=== PATIENT | male | born 1960 | race Caucasian/White ===

== ENCOUNTER 2019-01-10 21:08 | Inpatient (IN) | payer OTHER ==
[2019-01-10 21:51] LABS: #Eosinphils 0.1 thou/uL (0.0-0.7); #Lymphocytes 1.7 thou/uL (1.20-3.40); #Neutrophils 7.2 thou/uL (1.40-6.50); %Basophils 0.5 % (0.0-1.0); %Eosinophils 0.9 % (0.0-10.0); %Lymphocytes 16.9 % (21.0-51.0); %Monocytes 9.7 % (0.0-10.0); Hemoglobin 10.3 g/dL (14.0-18.0); Mean Corpuscular HGB CONC 33.3 g/dL (32.0-36.0); Mean Corpuscular Hemoglobin 29.9 pg (27.0-31.0); Mean Corpuscular Volume 89.7 fL (78.0-98.0); Mean Platelet Volume 7.6 fL (7.4-10.4); Platelet Count 374 thou/uL (130-400); RBC Distribution Width 12.1 % (11.5-14.5); Red Blood Cell (RBC) Count 3.46 mill/uL (4.70-6.10)
--- NOTE | 2019-01-10 22:01 | CT ---
CT HEAD WITHOUT CONTRAST 01/10/19 Multiple axial tomograms obtained through the head without IV enhancement. INDICATIONS: Mental status change. Ventricles have normal size and position. There is severe chronic ischemic white matter changes which are very prominent for patient's age. Evidence of numerous old lacunar infarcts in the deep white ma tter and basal ganglia regions bilaterally. There is no hemorrhage or mass. No evidence of acute katya ical infarct. Sinuses are clear. IMPRESSION: Severe chronic ischemic white matter changes with evidence of numerous old lacunar infarcts. Acute la cunar infarct in the deep white matter cannot be excluded given the degree of lucency present within the periventricular white matter. If there is concern of new lacunar infarct, further evaluation with MRI would be necessary for evaluation. POS: [facility]
[2019-01-10 22:07] LABS: ALT (SGPT) 11 U/L (8-55); AST (SGOT) 15 U/L (5-34); Albumin 2.6 g/dL (3.5-5.0); Alkaline Phosphatase 84 U/L (40-150); Anion Gap 13 mmol/L (10-20); BUN (Urea Nitrogen) 32 mg/dL (8.4-25.7); Bilirubin, Total 0.2 mg/dL (0.2-1.2); Calc. Creatinine Clearance 0 mL/min (70-130); Calcium 7.7 mg/dL (7.8-10.44); Carbon Dioxide 23 mmol/L (22-29); Chloride 97 mmol/L (98-107); Estimated GFR-MDRD 24; Globulin 2.6 g/dL (2.4-3.5); Glucose 158 mg/dL (70-105); Potassium 3.4 mmol/L (3.5-5.1); Protein, Total 5.2 g/dL (6.0-8.3); Sodium 130 mmol/L (136-145)
--- NOTE | 2019-01-10 22:28 | RAD ---
PORTABLE CHEST: 01/10/19 HISTORY: Chest pain and difficulty breathing. There is patchy infiltrate in the left lower lung concerning for pneumonia. Heart size upper normal. Lungs otherwise appear clear. IMPRESSION: Patchy left lower lung infiltrate. Close follow-up recommended to ensure clearing as other lung pratik s cannot be excluded. POS: [facility]
[2019-01-10 22:30] LABS: CKMB 2.8 ng/mL (0-6.6)
[2019-01-10 22:50] LABS: Bilirubin Negative (Negative); Blood, Urine Trace (Negative); Clarity CLEAR (Clear); Glucose, Urine (Dipstick) 250 mg/dL (Negative); Leukocyte Negative (Negative); Nitrite Negative (Negative); Protein, Urine (Dipstick) 300 mg/dL (Neg-Trace); Specific Gravity, Urine 1.011 (1.002-1.036); Urobilinogen 0.2 mg/dL (0.2-1.0); pH, Urine 6.5 (5.0-9.0)
[2019-01-10 22:55] LABS: Bacteria/HPF None Seen HPF (None Seen); Hyaline Casts/LPF 0-3 HYALINE CAST LPF (0-3 Hyaline); Pathc Cast-AUWi Flag 0.54 (0-2.49); RBC/HPF 0-3 HPF (0-3); Squamous Epithelial 0-3 HPF (0-3); WBC/HPF 0-3 HPF (0-3)
[2019-01-10 23:04] LABS: Renal Epithelial 0-3 HPF (0-3)
[2019-01-11] MEDS ORDERED: Aspirin Chewable 81 MG TAB ONE (00:06)
[2019-01-11 00:48] LABS: Troponin I 0.039 ng/mL (< 0.028)
[2019-01-11 01:16] VITALS: BMI 31.8
[2019-01-11] MEDS ORDERED: Dextrose 50% Abboject 50 ML SYRINGE SLOW IVP PRN (01:31)
[2019-01-11] MEDS ORDERED: HumaLOG 300 UNITS/3 ML VIAL SC PRN (01:31)
[2019-01-11] MEDS ORDERED: Dextrose 5% in Water 1,000 ML IV PRN (01:31)
[2019-01-11] MEDS ORDERED: Acetaminophen 500 MG TAB PO PRN (01:31)
[2019-01-11] MEDS ORDERED: hydrALAZINE 20 MG/ML VIAL SLOW IVP PRN (01:31)
[2019-01-11] MEDS ORDERED: Labetalol HCl 100 MG/20 ML VIAL SLOW IVP PRN (01:31)
[2019-01-11] MEDS ORDERED: Benzonatate 100 MG CAP PO PRN (01:31)
[2019-01-11] MEDS ORDERED: Ondansetron PF 4 MG/2 ML Vial IVP PRN (01:31)
[2019-01-11] MEDS ORDERED: Ondansetron ODT 4 MG TAB PO PRN (01:31)
[2019-01-11] MEDS ORDERED: Potassium Chloride 20 MEQ TAB PO SCH ×2 (01:45→12:00)
--- NOTE | 2019-01-11 02:08 | HP ---
PRIMARY CARE PROVIDER: Jerel Hassan. CHIEF COMPLAINT: Altered mental status. HISTORY OF PRESENT ILLNESS: This is a 58-year-old male who presents to [facility] Emergency Department in transfer from [facility] in [place], [place] where the patient is currently incarcerated. According to [facility] staff, the patient was noted with confusion, and alert and oriented to person only x1 at the [facility]. The patient denied any recent trauma injury or prior similar events. The patient denied any new medication exposure or documented fever. The patient does states he felt fever and has had some mild cough over the last 2 to 3 days. The history is obtained after reviewing the electronic medical record as well as discussions with the patient and [facility]pc guards at the bedside. The patient is unable to provide a comprehensive history due to altered mentation. In the emergency room, the patient underwent general evaluation including CT of the brain showing severe chronic ischemic white matter changes with evidence of multiple lacunar infarctions. Portable chest x-ray also revealed a questionable left lower lobe infiltrate concerning for infectious process. The patient was also noted with multiple metabolic derangements on screening laboratories including acute kidney injury. The patient received aspirin 324 mg in the emergency room and was referred to the Hospitalist Service for further evaluation. PAST MEDICAL HISTORY: 1. Coronary artery disease. 2. Hypertension. 3. Question of heart failure. 4. Diabetes mellitus type 2. 5. Hyperlipidemia. 6. History of asthma. 7. Questionable history of dementia. 8. Chronic kidney disease. PAST SURGICAL HISTORY: Reviewed and negative. CURRENT MEDICATIONS: 1. Carvedilol 25 mg p.o. b.i.d. 2. Lasix 40 mg p.o. b.i.d. 3. Glipizide 5 mg p.o. daily. 4. Lisinopril 20 mg p.o. daily. 5. Loperamide 2 mg p.o. t.i.d. p.r.n. 6. Terazosin 2 mg p.o. daily. 7. Plavix 75 mg p.o. daily. 8. Novolin N 12 units subcutaneously q.a.m. 9. Novolin R sliding scale. 10. Amlodipine 10 mg p.o. daily. 11. Aspirin 81 mg p.o. daily. 12. Lipitor 40 mg p.o. at bedtime. ALLERGIES: NO KNOWN DRUG ALLERGIES. FAMILY HISTORY: No inheritable diseases per patient's report. SOCIAL HISTORY: The patient currently incarcerated at the [facility] in [place], [place]. No current alcohol, tobacco, or illicit drug use. Remote history of smokeless tobacco use. REVIEW OF SYSTEMS: Unobtainable due to patient's encephalopathy and altered mental status. PHYSICAL EXAMINATION: VITAL SIGNS: On admission; blood pressure 120/57, pulse 64, respiratory rate 18, temperature 99.2 degrees Fahrenheit, O2 saturation 98% on room air. GENERAL APPEARANCE: This is a 58-year-old male, alert and oriented x2 to person and place, in no acute distress. HEENT: Pupils are equal, round, and reactive to light and accommodation. Extraocular muscles are intact. No scleral icterus. No conjunctival injection. Nares patent. OP is clear. Oral mucosa dry appearing. NECK: Supple. No cervical adenopathy. No thyromegaly. No carotid bruits. No JVD appreciated. Cervical spine with full active and passive range of motion. No meningeal signs noted. CHEST: Diminished breath sounds in the bases bilaterally. CARDIOVASCULAR: S1 and S2 without noted murmur, rub, or gallop. ABDOMEN: Rounded, soft, nontender, and nondistended. Bowel sounds are positive in all 4 quadrants. There is no hepatosplenomegaly. No abdominal bruits. No rebound or guarding appreciated. EXTREMITIES: Warm and dry with fair turgor. Pitting edema to the proximal shins bilaterally. Pulses are palpable distally at the dorsalis pedis, posterior tibial, and popliteal arteries bilaterally. Capillary refill less than 2 seconds. Ankle and wrist restraints in place. NEUROLOGIC: Cranial nerves II through XII are grossly intact. The patient is not observed ambulatory during this exam. Alert and oriented to person and place. PERTINENT LAB AND X-RAY FINDINGS: Sodium 130, potassium 3.4, chloride 97, CO2 of 23, BUN 32, creatinine 2.79, estimated GFR 24, glucose 158, calcium 7.7. LFTs within normal limits. Troponin I 0.034. Albumin 2.6. CBC showed a white blood cell count of 10.0, hemoglobin 10, hematocrit 31, platelet count 374 with 72% neutrophils. Urinalysis dated 01/10/2019, showed a specific gravity of 1.011, positive protein and glucose. CT of the brain without contrast dated 01/10/2019, showed severe chronic ischemic white matter changes with old lacunar infarcts and multitude of distributions. Portable chest x-ray dated 01/10/2019, showed left lower lobe infiltrate. EKG dated 01/10/2019, by my interpretation shows a sinus mechanism with heart rates in the 60s, normal R-wave progression noted in the precordial leads, normal axis, no acute ST-T wave changes appreciated. ASSESSMENT AND PLAN: 1. Acute metabolic encephalopathy, exact etiology unclear. Questionable transient ischemic attack versus infectious versus electrolyte abnormalities. We will continue supportive management as outlined below. The patient will be ruled out for stroke with MRI imaging of the brain in the a.m. Check TSH, magnesium, and ammonia level in the a.m. Avoid sedating agents and psychotropics. 2. Left lower lobe bacterial pneumonia, suspected given chest imaging findings. We will continue empiric antibiotic coverage with Levaquin 500 mg x1 dose in addition to cefepime 1 g IV q.12 hours. Continue to provide general pulmonary supportive management. Oxygen as needed to maintain O2 saturations greater than or equal to 90%. 3. Acute kidney injury. Baseline estimated GFR unknown. We will continue low volume intravenous normal saline at 50 mL/h. Avoid nephrotoxic agents and limit contrast exposure. Repeat creatinine in the a.m. 4. Hyponatremia. Suspect multifactorial given the patient's presentation. Continue low volume intravenous normal saline and monitor serial sodium values. 5. Hypokalemia, mild currently. Potassium chloride 40 mEq p.o. x1 dose and repeat potassium level in the a.m. 6. Questionable history of dementia after review of medical records. CT imaging of the brain showing severe chronic ischemic white matter changes, questionable multi-infarct dementia versus vascular dementia. Continue supportive management and monitor mental status. 7. Diabetes mellitus type 2. Insulin sliding scale for reflexive coverage. ADA diet when tolerating p.o. intake. Confirm outpatient insulin regimen. 8. Prophylaxis. Sequential compression devices while in bed. Pepcid 20 mg p.o. b.i.d. PT evaluation for functional assessment. CODE STATUS: Full. Surrogate medical decision maker is the fpc system. Job ID: [id number]
[2019-01-11] MEDS: Cefepime 1 GM in Sodium Chloride 0.9% 100 ML IVPB SCH ×2 (02:17→14:46)
[2019-01-11] MEDS: Sodium Chloride 0.9% 1,000 ML IV SCH ×2 (02:17→20:18)
[2019-01-11 04:47] LABS: Band 1 % (5-11); Eosinophils 1 % (0-10); Hemoglobin 9.9 g/dL (14.0-18.0); Lymphocytes 14 % (21-51); MDiff Complete? YES; Mean Corpuscular HGB CONC 33.7 g/dL (32.0-36.0); Mean Corpuscular Hemoglobin 30.2 pg (27.0-31.0); Mean Corpuscular Volume 89.5 fL (78.0-98.0); Mean Platelet Volume 7.7 fL (7.4-10.4); Monocytes 14 % (0-10); Neutrophil 70 % (42-75); Platelet Count 372 thou/uL (130-400); Platelet Morphology Comment Appears Adequate; RBC Morphology Normal; Red Blood Cell (RBC) Count 3.29 mill/uL (4.70-6.10); White Blood Cell (WBC) Count 11.4 thou/uL (4.8-10.8)
[2019-01-11 05:00] LABS: Anion Gap 11 mmol/L (10-20); BUN (Urea Nitrogen) 31 mg/dL (8.4-25.7); Calc. Creatinine Clearance 47 mL/min (70-130); Calcium 8.3 mg/dL (7.8-10.44); Carbon Dioxide 25 mmol/L (22-29); Cardiac Risk 3.5 (Less than 4.5); Chloride 99 mmol/L (98-107); Cholesterol 112 mg/dl (< 200 Desired); Estimated GFR-MDRD 24; Glucose 152 mg/dL (70-105); HDL Cholesterol 32 mg/dL (>60 Neg Risk); LDL Cholesterol, Calculated 62 mg/dL; Magnesium 1.6 mg/dL (1.6-2.6); Potassium 3.2 mmol/L (3.5-5.1); Sodium 132 mmol/L (136-145); Triglycerides 92 mg/dL (Less than 150)
[2019-01-11 05:06] LABS: Troponin I 0.053 ng/mL (< 0.028)
[2019-01-11] MEDS: Enoxaparin Sodium 30 MG/0.3 ML SYRINGE SC SCH (08:39)
[2019-01-11] MEDS: Famotidine 20 MG TAB PO SCH (08:39)
[2019-01-11] MEDS: Aspirin 81 mg Enteric Coated Tablet PO SCH (08:39)
[2019-01-11 09:58] LABS: ALT (SGPT) 10 U/L (8-55); AST (SGOT) 13 U/L (5-34); Albumin 2.5 g/dL (3.5-5.0); Alkaline Phosphatase 76 U/L (40-150); Bilirubin, Direct 0.1 mg/dL (0.1-0.3); Bilirubin, Total Less than 0.2 mg/dL (0.2-1.2); Protein, Total 5.3 g/dL (6.0-8.3)
[2019-01-11] MEDS: HumaLOG 300 UNITS/3 ML VIAL SC PRN (11:27)
--- NOTE | 2019-01-11 12:19 | CON ---
DATE OF CONSULTATION: 01/11/2019 CONSULTING PHYSICIAN: Hospitalist Service. IMPRESSION: 1. Acute encephalopathy with findings of underlying extensive small-vessel disease leading to possibility of acute stroke. 2. Diabetes. 3. Hypertension. PLAN: 1. MRI of the brain. 2. Echocardiogram. 3. Carotid ultrasound. 4. Reviewed lab. HISTORY OF PRESENT ILLNESS: Mr. Murphy is a 58-year-old man, who is an inmate in the [facility]. He apparently developed some acute confusional appearance to his demeanor. He was brought into the emergency room last night. He reports he has some patchy memories of what took place. He reported that he was in a hotel at this point, but did not know what city he was in. He did know the month, but did not know the year. He knew his age. He had an uneventful night. His vital signs have been stable and he has been afebrile. Routine laboratory including CBC was unremarkable other than renal insufficiency with a BUN of 31 and creatinine 2.75. Cholesterol ratio was 3.5. Urine was clear with some proteinuria and glucose present. He denies any headache, nausea, vomiting, vertigo, lateralized weakness or numbness. PAST MEDICAL HISTORY: As listed above. ALLERGIES: PENICILLIN. SOCIAL HISTORY: He is currently an inmate. Does not smoke. FAMILY HISTORY: Noncontributory. REVIEW OF SYSTEMS: Ten system review of systems is otherwise negative. PHYSICAL EXAMINATION: VITAL SIGNS: Blood pressure 151/70, pulse 65, respirations 20, and temperature 97.4. HEENT: Pupils are equal and reactive. Conjunctivae are clear. Oropharynx, poor dentition. NECK: Supple. EXTREMITIES: No cyanosis or edema. NEUROLOGIC: He is alert and cooperative. He is sitting up in the bed. He is feeding himself. His speech is fluent and clear. No facial asymmetry was noted. Transplant Registered Nurse strength was equal. Sensations intact to a touch. No abnormal movements were seen. Gait was not tested. SUMMARY: This is a middle-aged man with hypertension, diabetes, renal insufficiency, and extensive small-vessel ischemic disease, who presents with some acute confusion. I suspect that an ischemic cause is the leading possibility metabolically. There does not appear to be any cause identified. I agree with your plan of evaluation and care. Job ID: [id number]
--- NOTE | 2019-01-11 12:23 | MRI ---
MRI BRAIN WITHOUT CONTRAST: HISTORY: TIA. FINDINGS: Correlation is made with the CT scan from previous day. No restricted diffusion is seen. Changes of chronic small-vessel ischemic disease and old lacunar in farctions are again noted. No evidence of acute infarct, hemorrhage, midline shift, or abnormal extr aaxial fluid collections is seen. The ventricular size is appropriate and the basilar cisterns paten t. There is mucosal disease in the paranasal sinuses. IMPRESSION: No CT evidence of acute intracranial process. POS: [facility]
[2019-01-11] MEDS ORDERED: NPH, Human Insulin Isophane 300 UNIT/3 ML VIAL SC SCH (13:00)
--- NOTE | 2019-01-11 14:41 | PDOC.PN ---
- Subjective Encounter Start Date: 01/11/19 Encounter Start Time: 12:30 Subjective: pt up in bed no complains - Objective Resuscitation Status - Order Detail: 01/11/19 00:30 Resuscitation Status Routine Resuscitation Status: FULL: Full Resuscitation Vital Signs & Weight: Vital Signs (12 hours) Temp Pulse Resp BP BP Pulse Ox 01/11/19 08:00 95 01/11/19 07:55 98.1 F 69 18 133/62 95 01/11/19 03:28 96 01/11/19 03:19 97.4 F L 65 20 151/70 H 95 Weight Weight 247 lb 12.8 oz Result Diagrams: 01/11/19 04:17 01/11/19 04:17 Additional Labs: Accuchecks 01/11/19 01/11/19 10:22 05:00 POC Glucose 179 H 149 H Phys Exam - Physical Examination Neck: no nodes, no JVD, supple, full ROM Respiratory: no wheezing, no rales, no rhonchi, wheezing present, clear to auscultation bilateral Cardiovascular: RRR, no significant murmur, no rub, gallop, irregular Gastrointestinal: soft, non-tender, no distention, positive bowel sounds Dx/Plan (1) Acute metabolic encephalopathy Code(s): G93.41 - METABOLIC ENCEPHALOPATHY Status: Acute (2) Pneumonia Code(s): J18.9 - PNEUMONIA, UNSPECIFIED ORGANISM Status: Acute (3) Lacunar infarction Code(s): I63.81 - OTHER CEREB INFRC DUE TO OCCLS OR STENOSIS OF SMALL ARTERY Status: Acute (4) CKD (chronic kidney disease) stage 4, GFR 15-29 ml/min Code(s): N18.4 - CHRONIC KIDNEY DISEASE, STAGE 4 (SEVERE) Status: Acute - Plan will continue abx for now -: MRI brain did not show any new stroke -: will continue asa/plavix/statin * . Review of Systems - Review of Systems Respiratory: negative: Cough, Dry, Shortness of Breath, Hemoptysis, SOB with Excertion, Pleuritic Pain, Sputum, Wheezing Cardiovascular: negative: chest pain, palpitations, orthopnea, paroxysmal nocturnal dyspnea, edema, light headedness, other Gastrointestinal: negative: Nausea, Vomiting, Abdominal Pain, Diarrhea, Constipation, Melena, Hematochezia, Other - Medications/Allergies Allergies/Adverse Reactions: Allergies Allergy/AdvReac Type Severity Reaction Status Date / Time Penicillins Allergy Verified 01/11/19 02:48 Medications: Current Medications Acetaminophen (Tylenol) 1,000 mg PO Q6H PRN PRN Reason: Mild Pain (1-3) Last Admin: 01/11/19 03:12 Dose: 1,000 mg Aspirin (Ecotrin) 81 mg PO DAILY [facility] Last Admin: 01/11/19 08:39 Dose: 81 mg Atorvastatin Calcium (Lipitor) 40 mg PO HS [facility] Benzonatate (Tessalon) 100 mg PO Q6H PRN PRN Reason: Cough Clopidogrel Bisulfate (Plavix) 75 mg PO DAILY [facility] Dextrose/Water (Dextrose 50%) 25 gm SLOW IVP PRN PRN PRN Reason: Hypoglycemia Enoxaparin Sodium (Lovenox) 30 mg SC 0900 [facility] Last Admin: 01/11/19 08:39 Dose: 30 mg Famotidine (Pepcid) 20 mg PO QAM [facility] Last Admin: 01/11/19 08:39 Dose: 20 mg Glucagon (Glucagon) 1 mg IM PRN PRN PRN Reason: Hypoglycemia Hydralazine HCl (Apresoline) 10 mg SLOW IVP Q4H PRN PRN Reason: BP > 220/110 Dextrose/Water (D5w) 1,000 mls @ 0 mls/hr IV .Q0M PRN PRN Reason: Hypoglycemia Sodium Chloride (Normal Saline 0.9%) 1,000 mls @ 50 mls/hr IV .Q20H [facility] Last Admin: 01/11/19 02:17 Dose: 1,000 mls Cefepime HCl 1 gm/ Sodium (Chloride) 100 mls @ 200 mls/hr IVPB 0200,1400 [facility] Last Admin: 01/11/19 02:17 Dose: 100 mls Levofloxacin 500 mg/ Device 100 mls @ 100 mls/hr IVPB Q24HR [facility] Last Admin: 01/11/19 02:17 Dose: 100 mls Insulin Human Lispro (Humalog) 0 units SC .MILD SLIDING SCALE PRN PRN Reason: Mild Correctional Scale Last Admin: 01/11/19 11:27 Dose: 2 unit Insulin Human Lispro (Humalog) 0 units SC .BEDTIME SLIDING SC PRN PRN Reason: Bedtime Correctional Scale Insulin Human NPH (Humulin N) 6 unit SC NOW [facility] Stop: 01/11/19 16:00 Last Admin: 01/11/19 13:27 Dose: 6 unit Insulin Human NPH (Humulin N) 6 unit SC DAILY [facility] Labetalol HCl (Normodyne) 20 mg SLOW IVP Q1H PRN PRN Reason: BP > 220/110 Ondansetron HCl (Zofran Odt) 4 mg PO Q6H PRN PRN Reason: Nausea/Vomiting Ondansetron HCl (Zofran) 4 mg IVP Q6H PRN PRN Reason: Nausea/Vomiting Sodium Chloride (Flush - Normal Saline) 10 ml IVF PRN PRN PRN Reason: Saline Flush Last Admin: 01/11/19 02:18 Dose: 10 ml
[2019-01-11] MEDS ORDERED: Atorvastatin Calcium 40 MG TAB PO SCH (21:00)
--- NOTE | 2019-01-12 07:25 | PDOC.PN ---
- Subjective Encounter Start Date: 01/12/19 Encounter Start Time: 09:20 Subjective: Patient without complaint. Knows he is in a hospital. Knows year, person, -: situation. Still a bit confused, not certain how much is chronic though. -: Swelling in bilateral ankles since admission. - Objective Resuscitation Status - Order Detail: 01/11/19 00:30 Resuscitation Status Routine Resuscitation Status: FULL: Full Resuscitation MAR Reviewed: Yes Vital Signs & Weight: Vital Signs (12 hours) Temp Pulse Resp BP Pulse Ox 01/12/19 04:01 97 01/12/19 04:00 97.3 F L 81 18 155/69 H 94 L 01/11/19 23:54 97.6 F 74 16 157/67 H 97 01/11/19 20:10 95 Weight Weight 247 lb 12.8 oz I&O: 01/11/19 01/12/19 01/13/19 06:59 06:59 06:59 Intake Total 2830 Balance 2830 Result Diagrams: 01/11/19 04:17 01/12/19 07:34 Additional Labs: Accuchecks 01/12/19 01/11/19 01/11/19 05:32 19:56 16:15 POC Glucose 96 129 H 72 01/11/19 10:22 POC Glucose 179 H Phys Exam - Physical Examination Constitutional: NAD HEENT: moist MMs Respiratory: no wheezing, no rales, no rhonchi Cardiovascular: RRR, no significant murmur Gastrointestinal: soft, positive bowel sounds Musculoskeletal: edema present 1+ bilateral ankles and legs Neurological: non-focal, moves all 4 limbs Psychiatric: normal affect Deviation from normal: A&O x2, doesn't know which hospital he is in Dx/Plan (1) Acute metabolic encephalopathy Code(s): G93.41 - METABOLIC ENCEPHALOPATHY Status: Acute Comment: improved (2) Pneumonia Code(s): J18.9 - PNEUMONIA, UNSPECIFIED ORGANISM Status: Acute Comment: transitioned to oral antibiotics (3) CKD (chronic kidney disease) stage 4, GFR 15-29 ml/min Code(s): N18.4 - CHRONIC KIDNEY DISEASE, STAGE 4 (SEVERE) Status: Chronic Comment: recheck creatinine stable, likely chronic (4) Lacunar infarction Code(s): I63.81 - OTHER CEREB INFRC DUE TO OCCLS OR STENOSIS OF SMALL ARTERY Status: Chronic Comment: no new stroke on MRI, patient likely has underlying vascular dementia (5) Hypokalemia Code(s): E87.6 - HYPOKALEMIA Status: Acute Comment: recheck after replacement (6) Diabetes mellitus type 2 in obese Code(s): E11.69 - TYPE 2 DIABETES MELLITUS WITH OTHER SPECIFIED COMPLICATION; E66.9 - OBESITY, UNSPECIFIED Status: Chronic (7) HTN (hypertension) Code(s): I10 - ESSENTIAL (PRIMARY) HYPERTENSION Status: Chronic (8) HLD (hyperlipidemia) Code(s): E78.5 - HYPERLIPIDEMIA, UNSPECIFIED Status: Chronic (9) Diastolic CHF, chronic Code(s): I50.32 - CHRONIC DIASTOLIC (CONGESTIVE) HEART FAILURE Status: Chronic Comment: now with some fluid retention after IV fluids and no change in creatinine, will d/c IV fluids, give IV lasix dose, then resume home lasix - Plan cont current plan of care, continue antibiotics stable for transfer back to [facility] this afternoon -: will stop IV fluids, give a dose of IV Lasix prior to discharge * . - Discharge Day Encounter end time: 09:45
[2019-01-12 08:02] LABS: Anion Gap 13 mmol/L (10-20); BUN (Urea Nitrogen) 28 mg/dL (8.4-25.7); Calc. Creatinine Clearance 47 mL/min (70-130); Calcium 8.9 mg/dL (7.8-10.44); Carbon Dioxide 25 mmol/L (22-29); Chloride 107 mmol/L (98-107); Estimated GFR-MDRD 24; Glucose 107 mg/dL (70-105); Potassium 3.8 mmol/L (3.5-5.1); Sodium 141 mmol/L (136-145)
[2019-01-12] MEDS: Enoxaparin Sodium 30 MG/0.3 ML SYRINGE SC SCH (08:58)
[2019-01-12] MEDS: Aspirin 81 mg Enteric Coated Tablet PO SCH (08:58)
[2019-01-12] MEDS: Famotidine 20 MG TAB PO SCH (08:59)
[2019-01-12] MEDS ORDERED: Clopidogrel Bisulfate 75 MG TAB PO SCH (09:00)
[2019-01-12] MEDS ORDERED: NPH, Human Insulin Isophane 300 UNIT/3 ML VIAL SC SCH ×2 (09:00)
[2019-01-12] MEDS ORDERED: Cefdinir 300 MG CAP PO SCH (09:00)
[2019-01-12] MEDS ORDERED: Furosemide 40 MG/4 ML VIAL SLOW IVP SCH (09:45)
[2019-01-12] MEDS: HumaLOG 300 UNITS/3 ML VIAL SC PRN (12:01)
[2019-01-12 15:45] VITALS: BP 149/82; TEMP 98.1
--- NOTE | 2019-01-13 06:22 | PQF ---
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 DO Please exercise your independent, professional judgment in responding to the clarification form. Clinical indicators are provided on the bottom of this form for your review Please check appropriate box(s): [ ] Metabolic encephalopathy is due to FEDERICO [ ] Metabolic encephalopathy is due to hypokalemia/hyponatremia [ ] Metabolic encephalopathy is due to vascular dementia [ x ] Metabolic encephalopathy is due to pneumonia [ ] Other diagnosis [ ] Unable to determine For continuity of documentation, please document condition throughout progress notes and discharge summary. Thank You. CLINICAL INDICATORS - SIGNS / SYMPTOMS / LABS Multiple metabolic derangements on screening laboratories including FEDERICO-H&P, pg1 , 01/11 Acute Metabolic encephalopathy, exact etiology unclear-H&P,pg, 01/11 Acute kidney injury, Hyponatremia, Hypokalemia-H&P,pg01/11 I suspect that an ischemic cause is the leading possibility metabolically, There does not to be any cause identified-Consutl, pg2, 01/11 Acute metabolic encephalopathy, improved- Hospital PN, pg2, 01/12 Pneumonia-Hospital PN, pg2, 01/12 No new stroke on MRI, pt likely has underlying vacular dementia-Hospital PN, pg3 , 01/12 Hypokalemia-Hospital PN, pg2, 01/12 RISK FACTORS Diastolic CHF chronic-Hospital PN, pg3, 01/12 Pneumonia-Hospital PN, pg2, 01/12 Acute kidney injury-H&P, pg1, 01/11 Vascular dementia-Hospital PN, pg3, 01/12 Hypokalemia-Hospital PN, pg3, 01/12 Diabetic mellitus type 2-Hospital PN, pg3, 01/12 TREATMENTS: IV normal saline 50ml/h-H&P, pg3, 01/11 Check TSH, Magnesium and ammonia level-H&P, pg3, 01/11 IV.Cefepime 1g-H&P, pg3, 01/11 (This form is maintained as a part of the permanent medical record) 2014 [employer] All Rights Reserved Albino Gibbons [not provided] [not provided] MTDD
--- NOTE | 2019-01-13 12:05 | DIS ---
DATE OF ADMISSION: 01/11/2019 DATE OF DISCHARGE: 01/12/2019 PRIMARY CARE PHYSICIAN: [facility]. REASON FOR ADMISSION: Altered mental status and pneumonia. DIAGNOSES AT DISCHARGE: 1. Acute metabolic encephalopathy, improved. 2. Pneumonia. 3. Chronic kidney disease, stage 4. 4. History of lacunar infarcts without any new stroke on MRI. 5. Hypokalemia. 6. Diabetes mellitus, type 2. 7. Hypertension. 8. Hyperlipidemia. 9. Chronic diastolic congestive heart failure. 10. Likely underlying vascular dementia. PROCEDURES: 1. CT scan of the brain showing severe chronic ischemic white matter changes with evidence of numerous old lacunar infarcts. 2. MRI of the brain showing chronic small-vessel ischemic changes and old lacunar infarcts without any evidence of acute infarct or hemorrhage. 3. Echocardiogram showing ejection fraction of 55% to 60%, and EA flow reversal suggestive of diastolic dysfunction. CONSULTATIONS: Neurology, Alfredo Acuña MD SUMMARY OF HOSPITAL COURSE: This is a 58-year-old white male, inmate of [facility] from [place]. The patient was noted by present staff to have confusion. Alert and [place] The patient has had some cough and several fevers over the last 2 to 3 days and before he became altered, he was presented to the emergency room. Head CT of the brain showed above results. He had a portable chest x-ray revealed possible left lower lobe infiltrate. The patient was noted on his records from the shelter that he had some questionable history of dementia, uncertain what his baseline status was that also with coronary artery disease, hypertension, some possible heart failure, diabetes, hyperlipidemia, and chronic kidney disease. The patient was admitted to the hospital. Neurology was consulted. Dr. Acuña did recommend a MRI for the likelihood of acute stroke. MRI was done and as above showed no acute stroke. This plan was thought that his altered mental status was likely secondary to his pneumonia. The patient was on IV antibiotics. His mental status started to improve and so the IV antibiotics were transitioned over to oral antibiotics. The patient had no fevers and he had improvement in his cough during his hospitalization. He was noted to have creatinine of 2.79 at admission, uncertain what his baseline was. It was thought that he might have some acute renal failure. The patient was given IV fluids over the course of his hospitalization with no improvement in his renal function, but he did start to get swelling in his ankles and feet. He had no respiratory difficulties. Echocardiogram was done as above and did show diastolic dysfunction consistent with history of congestive heart failure. As a result of swelling and lack of improvement in his creatinine, patient's IV fluid was discontinued. He was given a dose of Lasix with good diuresis prior to discharge. He was doing well prior to discharge, was alert and oriented to person, to place, to situation. He knew he is in a hospital. He had hard time remembering which hospital he was in. Uncertain if this is his actual baseline function or not with his history of multiple previous strokes with CT and history of dementia mentioned in his chart. I suspect the patient has underlying vascular dementia as the source for his mental problems and then it exacerbated infection. With improvement in patient's symptoms, he is stable for discharge back to the shelter to finish off oral antibiotic course. DISCHARGE MANAGEMENT: Discharged back to [facility]. ACTIVITY: As tolerated. DIET: Diabetic fluid-restricted low-sodium diet. MEDICATIONS: 1. Omnicef 300 mg twice a day for 9 more days. 2. Atorvastatin increased to 40 mg at night, 30 tablets dispensed. 3. Amlodipine 10 mg daily. 4. Aspirin 81 mg daily. 5. Carvedilol 25 mg twice a day. 6. Clopidogrel 75 mg daily. 7. Furosemide 40 mg twice a day. 8. Glipizide 5 mg daily. 9. Loperamide 2 mg 3 times a day. 10. Terazosin 2 mg at night. 11. Continue Novolin N 12 units subcu daily. Job ID: [id number]
== END 2019-01-12 16:12 | DRG 193 ==
LOC: ERS 21:08 → 2SE 01-11 00:50
PROVIDERS: ADMIT Family Medicine; ATTEND Family Medicine
DX: J15.9 Unspecified bacterial pneumonia (principal); G93.41 Metabolic encephalopathy; I13.0 Hypertensive heart and chronic kidney disease with heart failure and stage 1 through stage 4 chronic kidney disease, or unspecified chronic kidney disease; E87.1 Hypo-osmolality and hyponatremia; I50.32 Chronic diastolic (congestive) heart failure; N18.4 Chronic kidney disease, stage 4 (severe); E78.5 Hyperlipidemia, unspecified; F03.90 Unspecified dementia, unspecified severity, without behavioral disturbance, psychotic disturbance, mood disturbance, and anxiety; I25.10 Atherosclerotic heart disease of native coronary artery without angina pectoris; E87.6 Hypokalemia; J45.909 Unspecified asthma, uncomplicated; F01.50 Vascular dementia, unspecified severity, without behavioral disturbance, psychotic disturbance, mood disturbance, and anxiety; E66.9 Obesity, unspecified; E11.22 Type 2 diabetes mellitus with diabetic chronic kidney disease; Z79.4 Long term (current) use of insulin; Z88.0 Allergy status to penicillin; Z68.31 Body mass index [BMI] 31.0-31.9, adult
CPT/HCPCS: 36415; 36416; 70450; 70551; 71045; 80048; 80053; 80061; 80076; 81003; 81015; 82140; 82553; 83735; 83880; 84443; 84484; 85007; 85025; 85027; 93005; 93306; J0692; J1650; J1815; J1940; J1956; J3490

== ENCOUNTER 2019-01-26 04:06 | Emergency (ER) | payer OTHER ==
[2019-01-26] MEDS ORDERED: Aspirin Chewable 81 MG TAB ONE (04:14)
[2019-01-26 05:17] LABS: #Basophils 0.2 thou/uL (0.0-0.2); #Eosinphils 0.4 thou/uL (0.0-0.7); #Lymphocytes 2.1 thou/uL (1.20-3.40); #Monocytes 1.4 thou/uL (0.11-0.59); %Basophils 1.9 % (0.0-1.0); %Eosinophils 3.6 % (0.0-10.0); %Lymphocytes 21.1 % (21.0-51.0); %Monocytes 13.9 % (0.0-10.0); %Neutrophils 59.5 % (42.0-75.0); Hemoglobin 11.4 g/dL (14.0-18.0); Mean Corpuscular HGB CONC 33.3 g/dL (32.0-36.0); Mean Corpuscular Hemoglobin 29.7 pg (27.0-31.0); Mean Corpuscular Volume 89.1 fL (78.0-98.0); Mean Platelet Volume 7.2 fL (7.4-10.4); Platelet Count 462 thou/uL (130-400); RBC Distribution Width 12.1 % (11.5-14.5); Red Blood Cell (RBC) Count 3.84 mill/uL (4.70-6.10); White Blood Cell (WBC) Count 10.1 thou/uL (4.8-10.8)
[2019-01-26 05:45] LABS: ALT (SGPT) 16 U/L (8-55); AST (SGOT) 29 U/L (5-34); Albumin 2.4 g/dL (3.5-5.0); Alkaline Phosphatase 105 U/L (40-150); Anion Gap 12 mmol/L (10-20); BUN (Urea Nitrogen) 49 mg/dL (8.4-25.7); Bilirubin, Total 0.2 mg/dL (0.2-1.2); Calc. Creatinine Clearance 0 mL/min (70-130); Calcium 8.5 mg/dL (7.8-10.44); Carbon Dioxide 27 mmol/L (22-29); Chloride 96 mmol/L (98-107); Estimated GFR-MDRD 23; Globulin 3.5 g/dL (2.4-3.5); Glucose 137 mg/dL (70-105); Lipase 26 U/L (8-78); Protein, Total 5.9 g/dL (6.0-8.3); Sodium 132 mmol/L (136-145)
[2019-01-26 05:46] LABS: Potassium 2.9 mmol/L (3.5-5.1)
[2019-01-26] MEDS ORDERED: Potassium Chloride 20 MEQ TAB ONE (06:02)
[2019-01-26 06:03] LABS: CKMB 6.3 ng/mL (0-6.6)
[2019-01-26] MEDS ORDERED: Morphine 2 MG/ML SYRINGE ONE (06:54)
[2019-01-26] MEDS ORDERED: hydrALAZINE 20 MG/ML VIAL ONE (06:54)
--- NOTE | 2019-01-26 07:50 | RAD ---
RADIOGRAPH CHEST 1 VIEW: HISTORY: A 58-year-old male with chest pain. FINDINGS: There are no air space densities, pulmonary edema, pneumothorax, or cardiomegaly. The lateral costop hrenic angles are sharp. IMPRESSION: No acute cardiopulmonary findings. jn [] POS: HENOK
== END 2019-01-26 08:54 | disposition short-term general hospital (02) ==
LOC: ERS 04:06 → EEVIPCON 04:06 → ERS 08:54
DX: R07.9 Chest pain, unspecified (principal); I25.10 Atherosclerotic heart disease of native coronary artery without angina pectoris; I13.0 Hypertensive heart and chronic kidney disease with heart failure and stage 1 through stage 4 chronic kidney disease, or unspecified chronic kidney disease; I50.9 Heart failure, unspecified; N18.9 Chronic kidney disease, unspecified; E10.9 Type 1 diabetes mellitus without complications; E78.5 Hyperlipidemia, unspecified; J45.909 Unspecified asthma, uncomplicated; F03.90 Unspecified dementia, unspecified severity, without behavioral disturbance, psychotic disturbance, mood disturbance, and anxiety; Z79.82 Long term (current) use of aspirin; Z79.899 Other long term (current) drug therapy; Z79.891 Long term (current) use of opiate analgesic
CPT/HCPCS: 36415; 71045; 80053; 82553; 83690; 84484; 85025; 93005; 96374; 96375; J0360; J2270

== ENCOUNTER 2019-02-21 21:15 | Inpatient (IN) | payer OTHER ==
--- NOTE | 2019-02-21 22:17 | RAD ---
Chest one view HISTORY: Chest pain. COMPARISON: 01/26/2019. FINDINGS: Cardiac silhouette is magnified by projection. Pulmonary vasculature is unremarkable. Lungs remain hyperinflated. No confluent airspace consolidation or evidence of pneumothorax. television equipment operator leads overlie the chest. IMPRESSION: No active cardiopulmonary abnormalities are demonstrated.
[2019-02-21 22:22] LABS: Hemoglobin 10.3 g/dL (14.0-18.0); Mean Corpuscular HGB CONC 33.4 g/dL (32.0-36.0); Mean Corpuscular Hemoglobin 29.2 pg (27.0-31.0); Mean Corpuscular Volume 87.4 fL (78.0-98.0); Platelet Count 356 thou/uL (130-400); RBC Distribution Width 12.6 % (11.5-14.5); Red Blood Cell (RBC) Count 3.54 mill/uL (4.70-6.10); White Blood Cell (WBC) Count 8.9 thou/uL (4.8-10.8)
[2019-02-21 22:33] LABS: Band 2 % (5-11); Eosinophils 2 % (0-10); Lymphocytes 22 % (21-51); MDiff Complete? YES; Monocytes 15 % (0-10); Neutrophil 59 % (42-75); Platelet Morphology Comment Appears Adequate
[2019-02-21 22:37] LABS: ALT (SGPT) 10 U/L (8-55); AST (SGOT) 15 U/L (5-34); Albumin 2.7 g/dL (3.5-5.0); Alkaline Phosphatase 85 U/L (40-150); Anion Gap 11 mmol/L (10-20); BUN (Urea Nitrogen) 34 mg/dL (8.4-25.7); Bilirubin, Total 0.2 mg/dL (0.2-1.2); Calc. Creatinine Clearance 0 mL/min (70-130); Calcium 8.5 mg/dL (7.8-10.44); Carbon Dioxide 27 mmol/L (22-29); Chloride 95 mmol/L (98-107); Estimated GFR-MDRD 25; Glucose 160 mg/dL (70-105); Protein, Total 5.7 g/dL (6.0-8.3); Sodium 130 mmol/L (136-145)
[2019-02-21] MEDS ORDERED: Potassium Chloride 20 MEQ TAB ONE (22:50)
[2019-02-22] MEDS ORDERED: Ondansetron PF 4 MG/2 ML Vial IVP PRN (00:51)
[2019-02-22] MEDS ORDERED: Acetaminophen 650 MG Suppository PR PRN (00:51)
[2019-02-22] MEDS ORDERED: Acetaminophen 325 MG TAB PO PRN (00:51)
[2019-02-22] MEDS ORDERED: Senokot S 8.6-50 MG TAB PO PRN (00:51)
[2019-02-22] MEDS ORDERED: Ondansetron ODT 4 MG TAB PO PRN (00:51)
[2019-02-22 01:53] VITALS: BMI 28.4
[2019-02-22 01:55] LABS: Troponin I 0.038 ng/mL (< 0.028)
[2019-02-22] MEDS ORDERED: Dextrose 5% in Water 1,000 ML IV PRN (02:06)
[2019-02-22] MEDS ORDERED: HumaLOG 300 UNITS/3 ML VIAL SC PRN ×2 (02:06)
[2019-02-22] MEDS ORDERED: Dextrose 50% Abboject 50 ML SYRINGE SLOW IVP PRN (02:06)
[2019-02-22] MEDS ORDERED: Potassium Chloride 20 MEQ TAB PO SCH (02:30)
[2019-02-22] MEDS ORDERED: Potassium Chloride 20 MEQ in Premix Bag 1 BAG IVPB SCH (02:30)
[2019-02-22 02:34] LABS: Amphetamine Not Detected (NotDetected); Barbiturates Screen Not Detected (NotDetected); Benzodiazepine Screen Not Detected (NotDetected); Cocaine Metabolite Screen Not Detected (NotDetected); Medtox Control Line Valid? VALID (VALID); Medtox Reader # READER 1; Methadone Not Detected (NotDetected); Methamphetamine Not Detected (NotDetected); Opiate Screen Not Detected (NotDetected); Oxycodone Screen Not Detected (NotDetected); Phencyclidine (PCP) Not Detected (NotDetected); THC/Cannabinoid Screen Not Detected (NotDetected); Tricyclic Screen Not Detected (NotDetected)
--- NOTE | 2019-02-22 02:37 | HP ---
CHIEF COMPLAINT: Chest pain. HISTORY OF PRESENT ILLNESS: Mr. Murphy is a 58-year-old man with extensive cardiac history, who presents with complaints of chest pain that started at 9:00 a.m. which he rates a 6/10 in severity. It lasted for approximately 2 hours. He states it was in the center of his chest and did not radiate to his arms nor to his neck. He denies any associated shortness of breath, lightheadedness, or dizziness. He reports having a cough productive for yellow sputum for the last few days. Denies having any fevers, chills, or sweats. Reports lower leg swelling from his feet to his knees, which is longstanding. He states it is not any worse than what it normally is. Patient is here from jail and could not be seen at [facility] due to the hospital being full. Apparently, he underwent procedures there as well as a workup recently, but the patient is unable to recall what exactly he had done and how long ago. He was last seen here in December with altered mental status. He underwent an echocardiogram on 01/11/2019, which showed an EF of 55% to 60% with changes suggestive of diastolic dysfunction. Mild MR and mild TR noted. In the emergency department, the patient has undergone laboratory studies, including a BNP which was normal at 86 and his troponin was 0.028. Laboratory studies are notable for CKD, stage 4, which appears stable compared to previous visits. He is anemic at 10.3, which also appears stable. Potassium was 3.0. Albumin was 2.7. Patient has had a chest x-ray done which shows no active cardiopulmonary abnormalities. PAST MEDICAL HISTORY: 1. Coronary artery disease. 2. Hypertension. 3. Diastolic dysfunction. 4. Diabetes mellitus, type 2. 5. Hyperlipidemia. 6. Asthma. 7. Dementia. 8. CKD. PAST SURGICAL HISTORY: Unable to verify with patient. Patient has no recollection of what procedures he has had. SOCIAL HISTORY: Patient is in jail. Denies any alcohol use, drug use, or tobacco use. ALLERGIES: NO KNOWN DRUG ALLERGIES. CURRENT MEDICATIONS: 1. Patient states he does not take any medications. However, he did verify he is on carvedilol. 2. Furosemide. 3. Glipizide. 4. Terazosin. 5. Clopidogrel. 6. Novolin. 7. Amlodipine. 8. Aspirin. 9. Atorvastatin. PHYSICAL EXAMINATION: GENERAL: Patient appears comfortable, well nourished, in no acute distress. VITAL SIGNS: Temperature 97.7, pulse 70, blood pressure 130/99, respirations 18, and O2 saturation 98% on room air. HEENT: Normocephalic and atraumatic. Pupils are equal, round, and reactive to light. Sclerae without icterus. Oropharynx is clear. NECK: Supple. No lymphadenopathy. LUNGS: Clear to auscultation bilaterally without any wheezes, rales, or rhonchi. CARDIAC: Regular rate and rhythm. ABDOMEN: Soft, nontender, and nondistended. Normoactive bowel sounds present. EXTREMITIES: Notable for +3 pitting edema from his feet to below the knees bilaterally. NEUROLOGIC: Alert and oriented x3. SKIN: Without rash or jaundice. IMPRESSION AND PLAN: Mr. Murphy is a 58-year-old man, who presents with complaints of chest pain this morning, lasting 2 hours. He is being referred for management of the following. 1. Acute coronary syndrome rule out. Patient with a normal troponin. We will continue to trend his troponins. He has a significant cardiac history and may have undergone stent or catheterization recently, but is unable to provide information about this. He is unsure whether it was done. We will need to obtain records from [facility], where it seems he had this procedure. Patient is pain-free at the moment. Given extensive cardiac history, we will place consultation with Cardiology as per discussion with Dr. Pagan. We will check urine drug screen. Lipid panel and thyroid function were just checked a month ago and normal. 2. Lower extremity edema. BNP normal. Chest x-ray without any evidence of fluid overload. He does have significant renal insufficiency that is longstanding. Edema may be associated with his underlying renal disease, possibly nephrotic syndrome. He does have a low albumin of 2.7. We will monitor for now as this is unchanged in longstanding. Echocardiogram done recently and results as mentioned above in the HPI. 3. Diabetes mellitus. Patient states he does not take medications. We will initiate insulin sliding scale and monitor glucose. 4. Hypertension. If able to verify his current medications, we will resume them and we will monitor blood pressure. 5. Gastrointestinal prophylaxis. 6. Deep venous thrombosis prophylaxis. 7. Code status. Full. Unable to name a surrogate decision maker at this present time. Patient's case was discussed with Dr. Pagan, who agrees with plan of care as described above. Job ID: [id number]
[2019-02-22 05:46] LABS: Eosinophils 6 % (0-10); Hemoglobin 11.2 g/dL (14.0-18.0); Lymphocytes 25 % (21-51); MDiff Complete? YES; Mean Corpuscular Hemoglobin 30.1 pg (27.0-31.0); Mean Corpuscular Volume 88.4 fL (78.0-98.0); Mean Platelet Volume 7.1 fL (7.4-10.4); Monocytes 13 % (0-10); Neutrophil 56 % (42-75); Platelet Count 371 thou/uL (130-400); Platelet Morphology Comment Appears Adequate; RBC Distribution Width 12.6 % (11.5-14.5); Red Blood Cell (RBC) Count 3.71 mill/uL (4.70-6.10); White Blood Cell (WBC) Count 9.2 thou/uL (4.8-10.8)
[2019-02-22 05:48] LABS: Anion Gap 11 mmol/L (10-20); BUN (Urea Nitrogen) 34 mg/dL (8.4-25.7); Calc. Creatinine Clearance 47 mL/min (70-130); Carbon Dioxide 29 mmol/L (22-29); Chloride 101 mmol/L (98-107); Estimated GFR-MDRD 26; Glucose 84 mg/dL (70-105); Potassium 3.7 mmol/L (3.5-5.1); Sodium 137 mmol/L (136-145)
[2019-02-22 05:53] LABS: Troponin I 0.034 ng/mL (< 0.028)
[2019-02-22] MEDS ORDERED: Nitroglycerin 2% Ointment 1 INCH/1 GM Packet TOP SCH (06:00)
[2019-02-22] MEDS ORDERED: Famotidine/PF 20 mg/2ml Vial SLOW IVP SCH (09:00)
[2019-02-22] MEDS ORDERED: Aspirin 325 mg Enteric Coated Tablet PO SCH (09:00)
[2019-02-22] MEDS ORDERED: Aspirin 81 mg Enteric Coated Tablet PO SCH (09:30)
[2019-02-22] MEDS: Amlodipine 10 MG TAB PO SCH (10:15)
[2019-02-22] MEDS: Clopidogrel Bisulfate 75 MG TAB PO SCH (10:16)
[2019-02-22] MEDS ORDERED: Regadenoson 0.4 MG/5 ML SYRINGE ONE (10:18)
[2019-02-22] MEDS: Famotidine/PF 20 mg/2ml Vial SLOW IVP SCH (15:14)
[2019-02-22] MEDS: cloNIDine 0.1 MG TAB PO SCH ×2 (15:15→20:13)
[2019-02-22] MEDS: Carvedilol 25 MG TAB PO SCH (15:15)
--- NOTE | 2019-02-22 15:22 | NM ---
Nuclear medicine Cardiac myocardial perfusion SPECT Ejection fraction study Wall motion cine: DATE:02/22/2019 9:12 AM INDICATION: Chest pain TECHNIQUE: Number of days:2 Rest Study: Technetium 99m-sestamibi (Cardiolite) dose:10.8 mCi Stress study: Technetium 99m-sestamibi (Cardiolite) dose:32.0 mCi FINDINGS: Cardiac (myocardial perfusion) SPECT There is a moderate size region of moderately reduced activity involving the basal to apical anterior anterior lateral wall of the left ventricle that doesn't improve with rest imaging. There is mild diffuse left ventricular dilatation of both the rest and stress images. There is a fixed defect invol ving the inferior wall of the left ventricle likely related to diaphragmatic attenuation. Ejection fraction study Left ventricular EF = 48% Wall motion cine There is some septal dyskinesis present. There is diminished wall thickening involving the anterior l ateral left ventricular wall. IMPRESSION: Abnormal myocardial perfusion evaluation. 1. There is a reversible region of moderately reduced activity involving the basal to apical anterior and anterior lateral wall suspicious for myocardial ischemia. 2. Predominantly fixed defect involving the basal to apical inferior wall is likely related to diaphr agmatic attenuation. 3. Slightly diminished LVEF estimated at 48% 4. Septal dyskinesis and diminished wall thickening of the anterior lateral wall of the left ventricl e.
--- NOTE | 2019-02-22 16:15 | CON ---
DATE OF CONSULTATION: PRIMARY CARE PHYSICIAN: [facility]. PRIMARY SENIOR INFORMATION SECURITY ARCHITECT: Sharla Rodriguez MD REASON FOR CARDIOLOGY CONSULT: Chest pain. HISTORY OF PRESENT ILLNESS: Mr. Murphy is a 58-year-old male with significant history of chronic diastolic heart failure likely underlying vascular dementia, hypertension, hyperlipidemia, diabetes type 2, and chronic kidney disease stage 4. The patient is an inmate of [facility] from [place]. The patient was transferred from a facility to [facility] for chest pain. He had sharp like chest pain to the midsternal area for 3 minutes. He denies any pain radiate to anywhere else. The patient also denies any other cardiac complaints such as dizziness, lightheadedness, numbness to the left upper arm, shortness of breath, nausea, or vomiting. The patient has a mild shortness of breath at that time. However, the patient is on antibiotic for now, which he cannot remember why he is on the medicine Omnicef, possibly the patient had a bronchitis or something because he is coughing now yellow productive sputum in the last few days. He cannot remember whether he had cardiac workup before. At this moment, the patient denies any chest pain, heaviness, tightness, shortness of breath, or any other cardiac complaints. The patient had echocardiograms done in December for altered mental status change and echo in December 2018 showed EF of 55% to 60%, diastolic dysfunction, mild mitral valve regurgitation and mild tricuspid regurgitation. PAST MEDICAL HISTORY: 1. Coronary artery disease. 2. Hypertension. 3. Diastolic dysfunction. 4. Type 2 diabetes. 5. Hyperlipidemia. 6. Asthma. 7. Vascular dementia. 8. Chronic kidney disease stage 4. PAST SURGICAL HISTORY: Unable to verify with the patient; however, when the patient's CT scan of the brain in December 2018 shows severe chronic ischemic white matter change with evidence of numerous old lacunar infarct. FAMILY HISTORY: Noncontributory. SOCIAL HISTORY: He is inmate of [facility] from [place]. He denies EtOH, drug, or tobacco abuse. ALLERGIES: THE PATIENT IS ALLERGIC TO PENICILLIN. CURRENT MEDICATIONS LIST: 1. Aspirin 81 mg once a day. 2. Amiodarone 10 mg once a day. 3. Lasix 40 mg twice a day. 4. Carvedilol 25 mg twice a day. 5. Glipizide 5 mg once a day. 6. Terazosin 2 mg at bedtime. 7. Loperamide 2 mg 3 times a day. 8. Insulin 12 units every a.m. 9. Plavix 75 mg once a day. 10. Atorvastatin 40 mg once a day. 11. Omnicef 300 mg twice a day. 12. Insulin 8 units at night. REVIEW OF SYSTEMS: A 12-point review of systems negative unless otherwise mentioned in the HPI. PHYSICAL EXAMINATION: VITAL SIGNS: Blood pressure 176/80, temperature 98.1, pulse is 72, respiratory rate 16, O2 saturation 97% with room air. GENERAL: The patient is alert and oriented times to self. He knows he is in the hospital at this moment, but he cannot tell the place or the city of the name here, but not in acute distress. HEENT: Head, normocephalic and atraumatic. Eyes, extraocular muscle movement intact. ENT and mouth, oral and nasal mucosa moist without lesion. NECK: Supple. Normal range of motion. No JVD. RESPIRATORY: Coarse. He has a very strong cough after he had a deep breath. CARDIOVASCULAR: Regular rate and rhythm. Normal S1 and S2. There is no S3 or S4. Significant murmur, hives, or thrill noted. 2+ pulses in the bilateral lower extremities. The patient has 2+ pitting edema in right lower extremities and trace edema to the left lower extremities. ABDOMEN: Soft and nontender. No mass to palpitate. Bowel sounds are present. SKIN: Warm and dry. No ischemia or lesion or rash noted. MUSCULOSKELETAL: The patient was able to move all extremities. The patient denied claudication. NEUROLOGIC: The patient is alert and oriented to self and probably place. Nonfocal. PSYCHIATRIC: The patient's mood is appropriate. LABORATORY DATA: White blood cell 9.2, hemoglobin 11.2, hematocrit 32.8, and platelet 371. Chemistry sodium 137, potassium 3.7, BUN 34, and creatinine 2.58, which seems like normal for the patient. Troponin 0.028, 0.038, and 0.034 and BNP is 86. Procalcitonin 0.05 and magnesium is 1.6. Chest x-ray shows no acute active cardiopulmonary abnormality. A 12-lead EKG shows sinus rhythm without ST-segment change or T-wave inversion. ASSESSMENT AND PLAN: 1. Chest pain. The patient has a history of coronary artery disease; however, the patient cannot provide a more further information to us at this moment. The patient's primary care doctor here has already requested records from [facility]. At this moment, the patient denied any chest pain or any cardiac complaints. At this moment, the patient's troponin is stable. The patient's blood pressure is little bit slightly elevated at this moment, we would like to treat that. The patient is going to have a stress test today and if it is unremarkable, the patient is going to be discharged. 2. Hypertension. His blood pressure is elevated today. He has not taken any blood pressure medicine while he is here, he is in the hospital. Once the patient finished a stress test, we would like to go ahead to resume carvedilol and amlodipine for this patient. 3. Chronic diastolic heart failure. BNP is stable. The patient is on a beta ralph and diuretic until after unit, which is holding for now. We would like to go ahead to resume once the patient has finished the stress test. 4. Chronic kidney disease stage 4, which is managed by primary care doctor. He is not on any medication, which affects his kidney at this moment. 5. Hyperlipidemia. He is on Lipitor. We would like to go ahead to resume when the patient is ready. 6. History of coronary artery disease. Unfortunately, we do not have any further records for his cardiac related procedure. However, he is on Plavix 75 mg with aspirin 81 mg once a day, which is possibly from history of stent placement or PAD in the lower extremity. We would like to go ahead to resume those medications once the patient is able to take the p.o. medication. 7. Vascular dementia, which is stable at this moment, managed by primary care doctor. Thank you very much for allowing the Cardiology Service to participate in the care of this patient. We will follow along the patient's care team and further recommendation as appropriate, but however, most likely the patient might be able to discharge if the patient's stress test is normal. Job ID: [id number]
--- NOTE | 2019-02-22 17:18 | CON ---
DATE OF CONSULTATION: 02/22/2019 INDICATION FOR CONSULTATION: A 58-year-old patient with a supposed history of coronary artery disease, which has thus far been undocumented. He had apparently had some chest discomfort and but, he is changing his story at times, sometimes he states for a few minutes and sometimes for 4 hours. He apparently incarcerated. He was sent to the emergency room here. EKG is unremarkable. Cardiac enzymes also are indeterminate. He was here approximately less than about a month ago, at which time, his troponin I also was slightly elevated up to 0.057. At this time, his peak troponin I has been 0.038 decreased down to 0.034. He has not seen any EKG changes that would indicate ischemia or previous myocardial infarction. He had an echocardiogram performed on his last admission on January 11, which showed a normal ejection fraction with diastolic dysfunction with mild mitral and tricuspid valve regurgitation. He apparently does have some altered mental status. He has had a CT scan performed, which shows diffuse white matter disease. Otherwise, he appears to be relatively comfortable at this time. His BNP is unremarkable. He does have chronic kidney disease; however, and his creatinine is 2.58 with a BUN of 34. At this time, there does not appear to be any acute episodes. He does have hypertension, however, this has not been well controlled. This will need to be addressed. There has been some mention in the records that he has an extensive cardiac history, but records are not available. The only abnormality I have seen thus far is that he has had a 7-beat run of nonsustained ventricular tachycardia, but with a normal ejection fraction. If the stress test is unremarkable, then this would not be too concerning, his risk will be less than 1% to have an acute cardiac event due to nonsustained ventricular tachycardia. PAST MEDICAL HISTORY: Significant for hypertension, diastolic dysfunction, type 2 diabetes, hyperlipidemia, history of dementia, chronic kidney disease, asthma, and a history of coronary artery disease, which has yet been to be documented. ALLERGIES: NONE. SOCIAL HISTORY: He is incarcerated. No alcohol or tobacco use at this time. MEDICATIONS: Include; 1. Coreg. 2. Furosemide. 3. Glipizide. 4. Terazosin. 5. Novolin insulin. 6. Amlodipine. 7. Clopidogrel. 8. Aspirin. 9. Atorvastatin. REVIEW OF SYSTEMS: Difficult to obtain a true review of systems in this patient, who appears to have some dementia, most of his answers are "I do not know." PHYSICAL EXAMINATION: GENERAL: Reveals a well-developed, well-nourished gentleman, who is actually in restraints at this time due to his incarceration. VITAL SIGNS: Blood pressure is 176/80, heart rate is 72 and regular, respiratory rate 16, he is afebrile. HEENT: Unremarkable. No trauma is noted. The carotid pulses are present. CHEST: Clear to auscultation anteriorly. CARDIOVASCULAR: Regular rate and rhythm. Normal S1 and S2. I cannot hear an S3 nor an S4. No other any significant murmurs, heaves, thrills, bruits, or rubs. GI: Abdominal exam, soft and nontender. Positive bowel sounds are present. EXTREMITIES: Showed 2+ lower extremity edema. Pedal pulses are present. NEUROLOGIC: The patient appears to be somewhat confused. He gets very poor historian. SKIN: Warm and dry. LABORATORY DATA: Otherwise shows a creatinine of 2.58 with BUN 34, potassium is 3.7, and blood sugar was 84. Hemoglobin was 10.3, platelet count 356,000, and WBC of 9.2. EKG shows a normal sinus rhythm with first-degree AV heart block, one episode of seven beats of nonsustained ventricular tachycardia. Otherwise, no acute evidence of any ischemia or ongoing problems at this time. Chest x-ray is unremarkable. No acute cardiac abnormalities were noted. IMPRESSION AND PLAN: 1. A 58-year-old gentleman with some degree of dementia and diffuse white matter disease on CT scan, who presented with a complaint of chest discomfort. The story has not always been consistent and he no longer remembers exactly how much pain he had exactly, where what is. He had no other associated symptoms, but has had some complaints of a cough in the past. We will certainly continue to monitor the patient. We will advise him to the stress testing. We will try to obtain records from [facility] to determine what his past medical history for his cardiac status is concerned, but we will certainly obtain a stress test to see if it is unremarkable or not. If unremarkable, the patient could directly be discharged back to facility today. 2. History of hypertension this is under poor control at this time. We will need to re-evaluate his medications to see if we can lower his blood pressure. 3. History of diabetes with by the primary care service. 4. History of diastolic dysfunction. The patient appears to be on the correct medications at this time. We will need to avoid angiotensin-converting enzyme inhibitors due to his renal insufficiency. 5. Chronic kidney disease, which also will be dealt with by the primary care service. If there are any changes or abnormalities on the stress test, and further evaluation would be indicated. We will await the records from [facility] also before making a final decision. Job ID: [id number]
[2019-02-22] MEDS ORDERED: Terazosin HCl 1 MG CAP ONE (20:00)
[2019-02-22] MEDS ORDERED: cloNIDine 0.1 MG TAB ONE (20:00)
[2019-02-22] MEDS: Atorvastatin Calcium 40 MG TAB PO SCH (20:13)
[2019-02-22] MEDS: Terazosin HCl 1 MG CAP PO SCH (20:13)
[2019-02-22] MEDS ORDERED: Prevnar 13-Val Conj/PF 0.5 ML SYRINGE IM ONE (21:00)
[2019-02-23] MEDS ORDERED: Lidocaine 1% (PF) 30 ML VIAL ONE (08:12)
[2019-02-23] MEDS ORDERED: Heparin 0 ML ONE (08:12)
[2019-02-23] MEDS ORDERED: Nitroglycerin 100MG/250ML BOT 250 ML ONE (08:12)
[2019-02-23] MEDS ORDERED: Heparin 25,000 units/D5W 0 ML ONE (08:12)
[2019-02-23] MEDS ORDERED: Verapamil 5 MG/2 ML VIAL ONE (08:12)
[2019-02-23] MEDS ORDERED: Heparin 10,000 UNITS/1 ML VIAL ONE (08:15)
[2019-02-23] MEDS ORDERED: Sodium Chloride 0.9% 200 ML IV PRN (10:36)
[2019-02-23] MEDS ORDERED: Nitroglycerin 0.4 MG TAB (25 Tab Bottle) SL PRN (10:36)
[2019-02-23] MEDS ORDERED: Acetaminophen/Codeine 30-300mg Tablet PO PRN ×2 (10:36)
[2019-02-23] MEDS: cloNIDine 0.1 MG TAB PO SCH ×2 (10:50→20:38)
[2019-02-23] MEDS ORDERED: Sodium Chloride 0.9% 2,000 ML IV ONE (11:15)
[2019-02-23] MEDS: Amlodipine 10 MG TAB PO SCH (11:20)
[2019-02-23] MEDS: Clopidogrel Bisulfate 75 MG TAB PO SCH (11:20)
[2019-02-23] MEDS: Famotidine/PF 20 mg/2ml Vial SLOW IVP SCH (11:21)
[2019-02-23] MEDS: Carvedilol 25 MG TAB PO SCH ×2 (15:06→20:38)
[2019-02-23] MEDS ORDERED: Acetylcysteine 20% 200 MG/ML PO SCH (15:17)
[2019-02-23] MEDS ORDERED: Iopamidol 370 76% 100 ML VIAL ONE (15:56)
[2019-02-23] MEDS ORDERED: Iopamidol 370 76% 50 ML VIAL FS ONE (15:56)
[2019-02-23] MEDS ORDERED: NIFEdipine XL 30 MG TAB PO SCH (16:00)
--- NOTE | 2019-02-23 16:13 | CON ---
DATE OF CONSULTATION: 02/23/2019 REASON FOR CONSULTATION: Chronic kidney disease stage 4 management. REQUESTING PHYSICIAN: Dr. Richard Rodriguez. CHIEF COMPLAINT: Chest pain. HISTORY OF PRESENT ILLNESS: A 58-year-old male patient with known history of chronic kidney disease, type 2 diabetes mellitus, hypertension, diastolic heart failure amongst others, who was brought in from the long term for evaluation of acute onset of severe chest pain. The patient had a positive nuclear stress test and subsequently had cardiac catheterization, which showed three vessel disease. Nephrology consult was requested for management of CKD with anticipated possibility of contrast-induced nephropathy. The patient reportedly has been diabetic and hypertensive for about 40 years. He also has chronic bilateral leg edema, but otherwise had no fever or dysuria. He admitted to intermittent difficulty passing urine with straining, but denied intermittency or prior history of acute retention. The patient received contrast during cardiac catheterization earlier today and was subsequently started on normal saline at 100 mL/h. There was no history of prior IV fluid therapy before contrast study. He denied nausea, vomiting, change in appetite, worsening leg swelling, hematuria, hematochezia, shortness of breath, or headache. PAST MEDICAL HISTORY: 1. Coronary artery disease. 2. Hypertension. 3. Diastolic heart failure. 4. Type 2 diabetes. 5. Hyperlipidemia. 6. Asthma. 7. Vascular dementia. 8. CKD. PAST SURGICAL HISTORY: Tonsillectomy. FAMILY HISTORY: Significant for hypertension and coronary artery disease, as well as kidney disease in father who at elderly age of 85. SOCIAL HISTORY: The patient is an inmate of [place] [employer] from [place]. He denied alcohol or drug or tobacco use. He admitted to remote history of tobacco for about 3 years. ALLERGIES: REPORTED ALLERGY TO PENICILLIN. HOME MEDICATIONS: 1. Aspirin 81 mg p.o. daily. 2. Amiodarone. 3. Amlodipine 10 mg p.o. daily. 4. Lipitor 40 mg p.o. daily. 5. Coreg 25 mg p.o. b.i.d. 6. Cefdinir 300 mg p.o. b.i.d. 7. Plavix 75 mg p.o. daily. 8. Lasix 40 mg p.o. b.i.d. 9. Glipizide 5 mg p.o. daily. 10. Insulin NPH 8 units every p.m. and 12 units in the morning. 11. Loperamide 2 mg p.o. t.i.d. 12. Terazosin 2 mg p.o. daily at bedtime. REVIEW OF SYSTEMS: A 12-point review of system performed was negative other than pertinent positives and negatives included in the history of present illness. PHYSICAL EXAMINATION: VITAL SIGNS: Current vitals showed temperature 97.4, pulse 52, respiratory rate 15, SpO2 of 96% on room air, blood pressure is 163/75. GENERAL: Middle-aged male, in no obvious distress. Afebrile. Anicteric. Acyanotic. HEENT: Normocephalic, atraumatic. Pupils are equal and reacting to light. Oral mucosa is moist. NECK: Supple, nontender with full range of motion. No masses or lymphadenopathy appreciated. CARDIOVASCULAR: Regular rhythm and rate with normal heart sounds 1 and 2. No murmur was appreciated. RESPIRATORY: Fair air entry bilaterally with no obvious crackle or rhonchi or use of accessory muscles. GI: Full, soft, nontender, nondistended with normal bowel sounds. EXTREMITIES: Moderate bilateral leg and foot edema, more on the left side. No erythema appreciated. NEUROLOGIC: Conscious, alert, oriented x3 with appropriate mental status. Cranial nerves 2 through 12 are grossly intact. The patient moves all extremities with symmetric power. Sensation is grossly intact. DIAGNOSTIC DATA: CBC on February 22 showed WBC count of 9.2, hemoglobin of 11.2, MCV of 88.4, platelet of 371. BMP on February 22, 2019 showed sodium 137, potassium 3.7, chloride 101, CO2 of 29, BUN 34, creatinine 2.58, glucose 84, calcium 9.0. Review of medical records showed that the patient has been stable with creatinine of 2.5 to 2.7. Urine drug screen was unremarkable. ASSESSMENT: 1. Chronic kidney disease stage 4, status post contrast study. The patient is at increased risk of contrast-induced nephropathy given history of chronic kidney disease stage 4, type 2 diabetes. The patient is currently on IV intravenous hydration. Etiology of chronic kidney disease is unknown. The patient has not seen any supervisor steel division. Given longstanding history of hypertension and diabetes, it is felt that this chronic kidney disease must be from diabetic nephropathy as well as hypertensive nephrosclerosis. However, absence of eye surgery or no overt neuropathy makes these questionable. The patient has chronic bilateral leg edema and is on diuretics. Contribution from hemodynamic factors cannot be ruled out at this time. 2. Hypertension: Control is suboptimal. IV fluid therapy may be contributory. 3. Bilateral leg edema: Most likely related to diastolic heart failure. DVT is a concern. 4. Anemia: Most likely due to anemia of chronic kidney disease. Iron deficiency cannot be ruled out. 5. Type 2 diabetes. PLAN: 1. We will get urine protein-creatinine ratio as well as urinalysis. We will also get renal ultrasound as well as vitamin D and intact PTH. 2. We will continue with IV fluid and recheck renal function in the morning. 3. We will also get iron chemistry. 4. We will start the patient on Mucomyst for what it is worth. 5. Recommend lower extremity Dopplers to rule out DVT. 6. We will substitute amlodipine with nifedipine and titrate same to get adequate BP control. 7. Further recommendation to follow on review of other diagnostic test. Many thanks for involving us in the care of this patient. We will follow along with you. Job ID: [id number]
--- NOTE | 2019-02-23 17:02 | PRG ---
DATE OF SERVICE: 02/23/2019 SUBJECTIVE: Mr. Murphy is a 58-year-old incarcerated gentleman with past medical history significant for known coronary artery disease, chronic kidney disease, and hypertension, who presented to the hospital with complaints of chest pain. The patient underwent left heart catheterization this morning with Dr. Rodriguez. He has no pain from his right radial access site. He has no complaints of chest pain or shortness of breath at this time. His appetite is good. No nausea or vomiting. Continues to complain of some lower extremity edema, which has been a chronic problem for him over the last several months. OBJECTIVE: VITAL SIGNS: Blood pressure is 148/70, pulse is 52, respirations are 15, and O2 saturation is 96% on room air. The patient is afebrile. GENERAL: The patient is a middle-aged male, resting comfortably in bed, in no acute distress. HEENT: Head is atraumatic and normocephalic. Mucous membranes are moist. NECK: Trachea is midline. No JVD. CV: S1 and S2. Regular rate and rhythm. No appreciable murmurs, rubs, or gallops. LUNGS: Regular respiratory rate and pattern, overall clear to auscultation bilaterally. ABDOMEN: Positive bowel sounds. Soft and nontender. EXTREMITIES: +3 edema left, +1/2 on the right. No ulcers or lesions present. NEUROLOGIC: Cranial nerves 2 through 12 are grossly intact. The patient is nonfocal. LABORATORY DATA: White blood cell count 9.2, RBC 3.71, hemoglobin 11.2, hematocrit 32.8, and platelets are 371. Sodium 137, potassium 3.7, anion gap is 11, BUN 34, creatinine 2.58, and calcium is 9. ASSESSMENT: 1. Triple-vessel coronary artery disease per left heart catheterization this morning with distal lesions as well as diffuse disease, preserved EF. 2. Stage 4 chronic kidney disease, creatinine is 2.58. 3. Lower extremity edema with left greater than right. 4. Type 2 diabetes mellitus. 5. Hypertension. 6. Anemia, likely secondary to chronic kidney disease. PLAN: Nephrology has been consulted and appreciate recommendations. The patient is at higher risk for acute tubular necrosis/contrast-induced nephropathy given his underlying renal function. Renal ultrasound is pending at this time. Also pending is venous Doppler of the lower extremities to rule out DVT. Per Dr. Rodriguez's recommendations, we will continue aggressive medical therapy at this time with Plavix, aspirin, and statin. He may be a candidate for PTCA to the RCA in the future. We will continue to monitor the patient's renal function closely. DVT prophylaxis with subcu heparin. Further recommendations based on hospital course. Job ID: [id number]
--- NOTE | 2019-02-23 17:07 | ULT ---
RENAL SONOGRAM: HISTORY: Chronic kidney disease, stage IV. FINDINGS: There is limited evaluation of the inferior pole of the left kidney due to shadowing from adjacent katharina wel gas, but the left kidney is otherwise grossly normal in appearance, without evidence of a renal m ass, renal calculus, or hydronephrosis. The left kidney measures 11 cm x 6.5 cm. The right kidney demonstrates no evidence of a mass, hydronephrosis, or renal calculus. The right ki dney measures 10.8 cm x 5.2 cm. The urinary bladder is mildly distended with a pre-void urinary bladder volume of 357.8 mL. The urin sandro bladder demonstrates a grossly normal sonographic appearance. IMPRESSION: No evidence of hydronephrosis bilaterally. POS: DWIGHTC
--- NOTE | 2019-02-23 18:06 | ULT ---
BILATERAL LOWER EXTREMITY VENOUS DOPPLER WITH SPECTRAL ANALYSIS AND COLOR FLOW EVALUATION: HISTORY: Bilateral lower extremity edema. TECHNIQUE: Slade-scale, color-flow, Doppler evaluation, and spectral analysis of the bilateral lower extremity ve nous structures is performed with 2D imaging. The bilateral lower extremity common femoral, superfic ial femoral, popliteal, posterior tibial, most proximal greater saphenous, and profunda femoral veins are imaged. FINDINGS: There is normal lumen compressibility, flow, and augmentation in the visualized deep venous structure s of the bilateral lower extremities. There is subcutaneous edema seen within the distal lower extremities bilaterally. IMPRESSION: 1. No evidence of deep venous thrombosis involving the visualized deep venous structures of the bila teral lower extremities. 2. Bilateral lower extremity subcutaneous edema. POS: MECHE
[2019-02-23 19:02] LABS: Creatinine, Urine 31.85 mg/dL (63-166)
[2019-02-23] MEDS: Atorvastatin Calcium 40 MG TAB PO SCH (20:38)
[2019-02-23] MEDS: Terazosin HCl 1 MG CAP PO SCH (21:12)
[2019-02-23] MEDS: Acetylcysteine 20% 200 MG/ML PO SCH (21:14)
[2019-02-23 21:27] LABS: Bacteria/HPF None Seen HPF (None Seen); Bilirubin Negative (Negative); Blood, Urine Trace (Negative); Clarity Clear (Clear); Glucose, Urine (Dipstick) 100 mg/dL (Negative); Leukocyte Negative Leu/uL (Negative); Nitrite Negative (Negative); Protein, Urine (Dipstick) 300 mg/dL (Neg-Trace); RBC/HPF 0-3 HPF (0-3); Squamous Epithelial None Seen HPF (0-3); Urobilinogen Normal mg/dL (Less than 2); WBC/HPF 0-3 HPF (0-3)
[2019-02-24] MEDS ORDERED: cloNIDine 0.1 MG TAB PO PRN (06:45)
[2019-02-24] MEDS: Clopidogrel Bisulfate 75 MG TAB PO SCH (08:52)
[2019-02-24] MEDS: NIFEdipine XL 60 MG TAB PO SCH (08:52)
[2019-02-24] MEDS: Carvedilol 6.25 MG TAB PO SCH (08:52)
[2019-02-24] MEDS: Famotidine/PF 20 mg/2ml Vial SLOW IVP SCH (08:53)
[2019-02-24] MEDS: Heparin 5,000 UNITS/ML VIAL SC SCH ×2 (08:53→21:23)
[2019-02-24] MEDS: Aspirin 325 MG TAB PO SCH (08:53)
[2019-02-24] MEDS: Acetylcysteine 20% 200 MG/ML PO SCH ×2 (08:56→21:50)
[2019-02-24] MEDS ORDERED: NIFEdipine XL 30 MG TAB PO SCH (09:00)
[2019-02-24 12:05] LABS: Albumin 2.2 g/dL (3.5-5.0); Anion Gap 8 mmol/L (10-20); BUN (Urea Nitrogen) 31 mg/dL (8.4-25.7); BUN/Creatinine Ratio 11.65; Calc. Creatinine Clearance 46 mL/min (70-130); Calcium 8.7 mg/dL (7.8-10.44); Carbon Dioxide 28 mmol/L (22-29); Chloride 106 mmol/L (98-107); Estimated GFR-MDRD 25; Glucose 164 mg/dL (70-105); Iron 27 ug/dL (65-175); Iron Binding Capacity, Total 185 mcg/dL (261-462); Potassium 3.6 mmol/L (3.5-5.1); Sodium 138 mmol/L (136-145)
--- NOTE | 2019-02-24 12:23 | PRG ---
DATE OF SERVICE: 02/24/2019 SUBJECTIVE: A 58-year-old male with chronic kidney disease being followed up for evaluation and management of CKD. The patient had contrast study in the form of cardiac catheterization yesterday. Nephrology consult was requested due to high risk for contrast-induced nephropathy. Chest pain has subsided and the patient has no new complaints. Denied fever, nausea, vomiting. OBJECTIVE: VITAL SIGNS: Temperature 97.8, pulse 63, respiratory rate 15, SpO2 97% on room air, blood pressure is 151/67. GENERAL: Middle-age male, in no distress. Afebrile. Anicteric. Acyanotic. HEENT: Normocephalic, atraumatic. Pupils are reacting to light. CARDIOVASCULAR: Regular rhythm and rate. Normal heart sounds one and two. RESPIRATORY: Good air entry bilaterally with no obvious crackle or rhonchi or use of accessory muscles. GI: Full, soft, nontender, nondistended with normal bowel sounds. EXTREMITIES: Hlur-pd-yeloqipm bilateral leg edema noted. No erythema or cyanosis appreciated. Distal pulses are palpable. NEUROLOGIC: Conscious and alert, oriented x3 with appropriate mental status. Cranial nerves 2 through 12 are grossly intact. DIAGNOSTIC DATA: Urinalysis of February 23 showed clear urine with pH of 7.5, specific gravity of 1.010, and urine protein of 300 mg/dL, and urine glucose of 100 mg/dL, as well as trace blood while ketone, nitrite, bilirubin, and leukocyte esterase were negative. Microscopy showed 0 to 3 RBC and WBC count. Urine protein was 650 mg/dL while urine creatinine was 31 with nhrqv-hxcvjcg-xciyqkedge ratio of more than 20. Renal function panel is pending at this time. Renal ultrasound was unremarkable with normal size kidneys with no hydronephrosis; however, urine of over 370 was noticed in the bladder at the time of study concerning for postvoid residual. Lower extremity Dopplers were negative for DVT. ASSESSMENT: 1. Chronic kidney disease with possible contrast-induced nephropathy. Etiology of initial chronic kidney disease is unknown. The patient, however, has history of hypertension and diabetes. However, he denied eye problems and neuropathy putting a question to the possibility of diabetic nephropathy. 2. Proteinuria: With UPC of about 20 suggestive of nephrotic range proteinuria. 3. Hypertension: Control is better, but still suboptimal. PLAN: 1. We will await renal function tests. 2. We will also get a 24-hour urine collection for urine protein and urine protein electrophoresis. 3. We will also get serum protein electrophoresis. 4. We will increase nifedipine to 60 mg p.o. daily with a view to increasing further to get adequate BP control. 5. Further recommendation to follow on review of other diagnostic tests. We will continue to follow along with you. Job ID: [id number]
[2019-02-24 12:27] LABS: Ferritin 48.08 ng/mL (22-322)
[2019-02-24 12:28] LABS: Vitamin D, 25 Hydroxy 5.4 ng/ml (> 30.0)
--- NOTE | 2019-02-24 13:02 | PDOC.CTH ---
Cardiology Progress Note - Subjective The pt seen and examined. No overnight night events. No cardiac complaints. - Objective Vital Signs Temp Pulse Resp BP Pulse Ox 02/24/19 11:48 97.5 F L 55 L 18 126/63 96 02/24/19 07:46 97.8 F 63 15 151/67 H 97 02/24/19 04:55 98.0 F 67 18 131/66 95 02/24/19 02:33 98 Weight 233 lb 12.8 oz 02/23/19 02/24/19 02/25/19 06:59 06:59 06:59 Intake Total 680 2713 Output Total 3500 2450 Balance -2820 263 - Physical Examination General/Neuro: other: (alert to self and situation) Neck: no JVD present Lungs: CTA Heart: RRR Abdomen: soft Extremities: other: (No edema) - Telemetry Telemetry Rhythm: SR - Labs Result Diagrams: 02/22/19 05:00 02/25/19 09:21 Troponin/CKMB Troponin I 0.034 ng/mL (< 0.028) H 02/22/19 05:00 - Assessment/Plan 1. CAD with S/p LHC with >75% stenosis in dist LAD, 90% in dist Lt Cx, 50% in Om , 80% in RCA, 90% in PL with EF 60-65%; Consider PTCA to RCA on 02/23/2019 - stable; On bblocker, statin, and ASA for now; not on JAIRO/ARB due to hx of CKD 2. CKD stage 4 - worsen this AM; 3. HTN - stable 4. HLD - on Statin 5. Chronic diastolic HF - stable; on bblocker; but JAIRO/ARB due to hx of CKD; 6. DM type 2 7. Vasular Dementia 8. Asthma MAR reviewed Pt. seen and eval. by me. I agree with the A/P by the RN LVN except probably best to try aggressive medical treatment at this time in this pt.. He denies chest pain or SOB Chest clear. RRR. at this time. Review of Systems - Review of Systems EENTM: reports: no symptoms reported Respiratory: reports: no symptoms reported Cardiac (ROS): reports: no symptoms reported ABD/GI: reports: no symptoms reported : reports: no symptoms reported Musculoskeletal: reports: no symptoms reported Skin: reports: no symptoms reported
--- NOTE | 2019-02-24 19:22 | PRG ---
DATE OF SERVICE: 02/24/2019 SUBJECTIVE: Mr. Murphy is a 58-year-old incarcerated gentleman with past medical history significant for known coronary artery disease, stage 4 chronic kidney disease, hypertension, who presented to the hospital with complaints of chest pain. The patient's renal function is being monitored closely after left heart catheterization performed yesterday. The patient has no complaints to me this morning. He denies any chest pain. He has no nausea or vomiting. Appetite remains good. No other complaints. OBJECTIVE: VITAL SIGNS: Blood pressure is 126/63, pulse is 55, O2 saturation is 96% on room air, respirations 18. The patient is afebrile. GENERAL: The patient is a middle-aged male, resting in bed, in no acute distress. HEENT: Head is atraumatic and normocephalic. Mucous membranes are moist. NECK: Trachea is midline. No JVD. CV: S1 and S2. Regular rate and rhythm. No appreciable murmurs, rubs, or gallops. LUNGS: Regular respiratory rate and pattern, overall clear to auscultation bilaterally. ABDOMEN: Positive bowel sounds. Soft, nontender. EXTREMITIES: +2 pitting edema bilaterally. No ulcers or lesions present. NEUROLOGIC: Cranial nerves 2 through 12 are grossly intact. The patient is nonfocal. LABORATORY DATA: Sodium is 138, potassium is 3.6, chloride is 106, anion gap is 8, BUN is 31, creatinine is 2.66. GFR estimated at 25. Iron 27, TIBC 185, percent saturation 15, albumin 2.2, PTH 328. ASSESSMENT: 1. Triple-vessel coronary artery disease. Diagnosed this hospitalization with severe distal disease noted in the left anterior descending and circumflex as well as an 80% stenosis in the right coronary artery, preserved ejection fraction. 2. Stage 4 chronic kidney disease. 3. Hypertension. 4. Type 2 diabetes mellitus. 5. Anemia of chronic disease. PLAN: Appreciate both Nephrology and Cardiology recommendations. 24-hour collection for urine protein and urine protein electrophoresis is still pending as well as serum protein electrophoresis. The patient's nifedipine has been increased. Continue DVT prophylaxis. We will continue to avoid all nephrotoxins including JAIRO inhibitor. The patient is at high risk for acute tubular necrosis/contrast-induced nephropathy, and we will continue to monitor him closely. He maybe a candidate for PTCA of the RCA in the future. Further recommendations based on hospital course. Job ID: [id number]
[2019-02-24] MEDS: Terazosin HCl 1 MG CAP PO SCH (21:49)
[2019-02-24] MEDS: Atorvastatin Calcium 40 MG TAB PO SCH (21:49)
[2019-02-24] MEDS: Carvedilol 25 MG TAB PO SCH (21:49)
[2019-02-25] MEDS: Clopidogrel Bisulfate 75 MG TAB PO SCH ×2 (08:34→10:49)
[2019-02-25] MEDS: Heparin 5,000 UNITS/ML VIAL SC SCH ×2 (08:34→10:48)
[2019-02-25] MEDS: NIFEdipine XL 60 MG TAB PO SCH (08:38)
[2019-02-25] MEDS: Famotidine/PF 20 mg/2ml Vial SLOW IVP SCH (08:39)
[2019-02-25] MEDS: Carvedilol 6.25 MG TAB PO SCH (08:39)
[2019-02-25] MEDS: Aspirin 325 MG TAB PO SCH (08:39)
[2019-02-25] MEDS ORDERED: Ergocalciferol 1.25 MG(50,000 UNITS) CAP PO SCH (10:00)
[2019-02-25 10:22] LABS: Urine Total Volume 2400 mL (800-1800)
[2019-02-25 10:24] LABS: Anion Gap 11 mmol/L (10-20); BUN (Urea Nitrogen) 31 mg/dL (8.4-25.7); Calc. Creatinine Clearance 45 mL/min (70-130); Calcium 8.8 mg/dL (7.8-10.44); Carbon Dioxide 25 mmol/L (22-29); Chloride 106 mmol/L (98-107); Estimated GFR-MDRD 25; Glucose 117 mg/dL (70-105); Potassium 3.6 mmol/L (3.5-5.1); Sodium 138 mmol/L (136-145)
[2019-02-25] MEDS ORDERED: Furosemide 20 MG TAB PO SCH (11:15)
--- NOTE | 2019-02-25 11:33 | PRG ---
DATE OF SERVICE: 02/25/2019 SUBJECTIVE: A 58-year-old alf inmate with known history of CKD 4, hypertension, diabetes, and coronary artery disease, who was admitted due to chest pain. Nephrology is seeing patient for CKD management. The patient denies any new complaints. Appetite is good. There is no nausea or vomiting. OBJECTIVE: VITAL SIGNS: Temperature 98.2, pulse 65, respiratory rate 18, SpO2 of 96% on room air and blood pressure 128/62. GENERAL: Middle-aged male, in no distress. Afebrile. Anicteric. Acyanotic. HEENT: Normocephalic, atraumatic. Oral mucosa is moist. CARDIOVASCULAR: Regular rhythm and rate with normal heart sounds 1 and 2. RESPIRATORY: Good air entry bilaterally with no obvious crackle or rhonchi or use of accessory muscles. GI: Abdomen is full, soft, nontender, nondistended with normal bowel sounds. EXTREMITIES: Mild bilateral leg edema noted. No erythema. Distal pulses are palpable. NEUROLOGIC: Conscious, alert, and oriented x3 with appropriate mental status. Cranial nerves 2 through 12 are grossly intact. DIAGNOSTIC DATA: BMP today showed sodium 138, potassium 3.6, chloride 106, CO2 25, creatinine 2.69, BUN 31, glucose 117, and calcium 8.8. Vitamin D is 5.4. PTH intact is 328.6. UPEP, SPEP are pending at this time. 24-hour urine collection showed total volume of 2400. However, urine protein and creatinine are pending at this time. ASSESSMENT AND PLAN: 1. Chronic kidney disease, stage 4: Stable. The patient received contrast study, but creatinine has been stable post procedure. Likely, the patient had contrast induced nephropathy. 2. Proteinuria: Nephrotic range by [facility]. Awaiting 24 hour urine total protein quantification. UPEP and SPEP also are pending at this time. 3. Bilateral leg edema: Related to volume overload from excretion due to chronic kidney disease 4. We will start the patient on diuretic. 4. Hypertension: Control is acceptable with increase of nifedipine to 60 mg p.o. daily. This is not ideal due to proteinuria. However, given possibility of contrast induced nephropathy, we will continue with this for now. The patient will need to be monitored and possibly transitioned to RAAS ralph in the outpatient setting. 5. Possible urinary retention: The patient has history of symptoms of BPH and is on terazosin. He is noted to have some postvoid residual ranging from 150-300. We will recommend switching to Flomax and starting patient on finasteride while encouraging the patient to void a second time to ensure reduction in residual urine. 6. Disposition: If outpatient followup could be established for patient, he could be discharged to follow up with the rheologist who will monitor and check 24 hour urine collection as well as UPEP and SPEP and continue management of chronic kidney disease. However, if this could not be guaranteed, additional day to get 24 hour urine collection and ensure that contrast induced nephropathy is ruled out in this patient will be prudent. Job ID: [id number]
[2019-02-25 11:39] LABS: 24 Hr Creatinine 1164.72 mg/24 hr (950-2490); Creatinine, Urine 48.53 mg/dL (63-166)
--- NOTE | 2019-02-25 12:39 | PDOC.CTH ---
Cardiology Progress Note - Subjective The pt seen and examined. No overnight events. No cardiac complaints. - Objective Vital Signs Temp Pulse Resp BP BP Pulse Ox 02/25/19 11:47 97.4 F L 61 16 156/72 H 97 02/25/19 08:38 65 02/25/19 08:03 98.2 F 65 18 128/62 96 02/25/19 03:41 97.8 F 61 16 140/66 94 L Weight 233 lb 12.8 oz 02/24/19 02/25/19 02/26/19 06:59 06:59 06:59 Intake Total 2713 866 Output Total 2450 1850 Balance 263 -984 - Physical Examination General/Neuro: alert & oriented x3 Neck: no JVD present Heart: RRR Abdomen: soft Extremities: other: (No edema) - Telemetry Telemetry Rhythm: SR - Labs Result Diagrams: 02/22/19 05:00 02/25/19 09:21 Troponin/CKMB Troponin I 0.034 ng/mL (< 0.028) H 02/22/19 05:00 - Assessment/Plan 1. CAD with S/p LHC with >75% stenosis in dist LAD, 90% in dist Lt Cx, 50% in Om , 80% in RCA, 90% in PL with EF 60-65%; stable; On bblocker, statin, and ASA for now; not on JAIRO/ARB due to hx of CKD; medical management only at this time due to worsening of renal function, mental status with white matter changes and history of possible CVA in the past. 2. CKD stage 4 - worsen this AM; 3. HTN - stable 4. HLD - on Statin 5. Chronic diastolic HF - stable; on bblocker; but JAIRO/ARB due to hx of CKD; 6. DM type 2 7. Vasular Dementia 8. Asthma MAR reviewed Pt. seen and eval. by me. I agree with the A/P by the ACTU[employer] SCIENCE PROFESSOR. He denies chest pain at this time. Continue medical management. Review of Systems - Review of Systems Constitutional: reports: no symptoms reported EENTM: reports: no symptoms reported Respiratory: reports: no symptoms reported Cardiac (ROS): reports: no symptoms reported ABD/GI: reports: no symptoms reported : reports: no symptoms reported Musculoskeletal: reports: no symptoms reported
[2019-02-25 12:51] LABS: Protein - 24 Hr 18936 mg/24 hr (Less than 300); Protein, Urine 789 mg/dL (1-14)
--- NOTE | 2019-02-25 15:41 | EKG ---
Test Reason : Blood Pressure : / mmHG Vent. Rate : 075 BPM Atrial Rate : 075 BPM P-R Int : 226 ms QRS Dur : 100 ms QT Int : 438 ms P-R-T Axes : 047 041 074 degrees QTc Int : 489 ms Sinus rhythm with 1st degree A-V block with Premature atrial complexes Prolonged QT Abnormal ECG Confirmed by FARAZ RODRIGUEZ, HARMONY Johnson ([id number]), editor index DIVINA GARCIA ([id number] on 02/25/2019 3:40:50 PM Referred By: Confirmed By:HARMONY RUTH MD
[2019-02-25 15:59] VITALS: BP 140/67; TEMP 97.6
[2019-02-26] MEDS ORDERED: Furosemide 20 MG TAB PO SCH (09:00)
[2019-02-26] MEDS ORDERED: Finasteride 5 MG TAB PO SCH (09:00)
[2019-02-26] MEDS ORDERED: Tamsulosin HCl 0.4 MG CAP PO SCH (09:00)
--- NOTE | 2019-02-26 14:57 | DIS ---
DATE OF ADMISSION: 02/22/2019 DATE OF DISCHARGE: 02/25/2019 CHIEF COMPLAINT: Chest pain. DISCHARGE DIAGNOSES: 1. Triple-vessel coronary artery disease per left heart catheterization performed in this hospitalization with severe stenosis noted in the distal left anterior descending artery and circumflex along with 80% stenosis in the right coronary artery, with preserved ejection fraction, medical management recommended. 2. Stage 4 chronic kidney disease. 3. Hypertension. 4. Type 2 diabetes mellitus. 5. Anemia of chronic disease. 6. Urinary retention. CONSULTANTS: 1. Dr. Henry of Nephrology. 2. Dr. Rodriguez of Cardiology. BRIEF HOSPITAL COURSE: The patient is a 58-year-old incarcerated gentleman with past medical history significant for known coronary artery disease in the past, stage 4 chronic kidney disease, hypertension, and type 2 diabetes mellitus, who presented to the hospital with complaints of chest pain. He stated that the chest pain lasted for about 2 hours and had no radiation. He had no shortness of breath, lightheadedness, or dizziness. He did have indeterminate troponin and initial creatinine of 2.6. He underwent a nuclear stress test which showed a moderate-sized reversible defect in the anterior wall and apex concerning for ischemia. He was taken to the label cutter by Dr. Rodriguez, all risks and benefits were explained to the patient including the risks of worsening renal failure. Left heart catheterization revealed preserved EF with ejection fraction 60% to 65%, a greater than 75% stenosis in the distal LAD, 90% stenosis in the distal left circumflex, 50% in the OM, 80% in the RCA, 90% on the PL, with preserved ejection fraction as mentioned. Appropriate medical therapy was advised. The patient did well on aspirin, Plavix, statin, beta ralph, and Imdur. He had no further chest pain during his hospitalization. Dr. Henry of Nephrology was consulted given his risk for developing acute tubular necrosis. His creatinine remained stable. Pending at the time of this discharge are urine protein and urine protein electrophoresis as well as serum protein electrophoresis. He has been cleared by both Cardiology and Nephrology for discharge today. It was noted on bladder scan that he had some mild urinary retention, and he was initiated on therapy with Flomax and finasteride. DISCHARGE DISPOSITION: Fpc. DISCHARGE CONDITION: Stable. DISCHARGE MEDICATIONS: 1. Coreg 12.5 orally q.a.m., 25 orally p.m. 2. Clonidine 0.1 mg orally b.i.d. p.r.n. 3. Finasteride 5 mg orally daily. 4. Lasix 40 mg orally daily. 5. Imdur 30 mg orally daily. 6. Nifedipine 60 mg orally daily. 7. Tamsulosin 0.4 mg orally daily. 8. Terazosin 1 mg orally at bedtime. 9. Aspirin 81 mg daily. 10. Glipizide 5 mg daily. 11. Insulin Novolin N 12 units subcu every morning. 12. Clopidogrel bisulfate 75 mg orally daily. 13. Atorvastatin 40 mg orally at bedtime. 14. Insulin Novolin N 8 units subcu every evening. DISCHARGE PLAN AND INSTRUCTIONS: Considerable amount of time has been spent setting up the patient in appointment with [facility]. This has been scheduled for March 03. They will follow up with the patient's pending lab results regarding his renal function and continue to monitor him for any signs of acute tubular necrosis. He will continue aspirin, Plavix, statin, and beta ralph. He will follow up with Cardiology as well. Recommendations have been made for possible PTCA of the RCA if he fails medical management. This case has been discussed with Dr. Henry and with Dr. Rodriguez. Job ID: [id number]
[2019-02-26 19:08] LABS: A/G Ratio 0.8 (0.7-1.7); Albumin 1.9 g/dL (2.9-4.4); Alpha 1 0.2 g/dL (0.0-0.4); Alpha 2 0.9 g/dL (0.4-1.0); Beta 0.8 g/dL (0.7-1.3); Gamma 0.6 g/dL (0.4-1.8); Globulin, Total 2.5 g/dL (2.2-3.9); M-Spike Not Observed g/dL (Not Observed)
[2019-02-27 16:09] LABS: Albumin, PEP 24hr Ur 42.5 % (NOT ESTAB.); Alpha-1-Globulin, PEP 24h Ur 9.9 % (NOT ESTAB.); Alpha-2-Globulin, PEP 24h Ur 15.1 % (NOT ESTAB.); Beta Globulin, PEP 24h Ur 16.1 % (NOT ESTAB.); Gamma Globulin, PEP 24h Ur 16.4 % (NOT ESTAB.); M-Spike,% PEP 24hr Ur Not Observed % (Not Observed); Protein, Urine 840.3 mg/dL (Not Estab.)
== END 2019-02-25 16:42 | DRG 287 ==
LOC: ERS 21:15 → 2SW 02-22 01:22 → OBSVTOIN 02-22 01:22
PROVIDERS: ADMIT Internal Medicine; ATTEND Internal Medicine
PROC: 4A023N7 Measurement of Cardiac Sampling and Pressure, Left Heart, Percutaneous Approach (ICD-10-PCS; principal; 2019-02-23)
PROC: B2151ZZ Fluoroscopy of Left Heart using Low Osmolar Contrast (ICD-10-PCS; 2019-02-23)
PROC: B2111ZZ Fluoroscopy of Multiple Coronary Arteries using Low Osmolar Contrast (ICD-10-PCS; 2019-02-23)
DX: R07.9 Chest pain, unspecified (principal); I13.0 Hypertensive heart and chronic kidney disease with heart failure and stage 1 through stage 4 chronic kidney disease, or unspecified chronic kidney disease; N18.4 Chronic kidney disease, stage 4 (severe); I50.32 Chronic diastolic (congestive) heart failure; I25.10 Atherosclerotic heart disease of native coronary artery without angina pectoris; E78.5 Hyperlipidemia, unspecified; E10.22 Type 1 diabetes mellitus with diabetic chronic kidney disease; D63.1 Anemia in chronic kidney disease; J45.909 Unspecified asthma, uncomplicated; F01.50 Vascular dementia, unspecified severity, without behavioral disturbance, psychotic disturbance, mood disturbance, and anxiety; Z88.0 Allergy status to penicillin; Z79.4 Long term (current) use of insulin; Z79.82 Long term (current) use of aspirin; Z79.899 Other long term (current) drug therapy
CPT/HCPCS: 36415; 36416; 71045; 76770; 78452; 80048; 80053; 80069; 80306; 81001; 82306; 82570; 82728; 83540; 83550; 83735; 83880; 83970; 84145; 84156; 84165; 84166; 84484; 85025; 93005; 93017; 93458; 93970; 94760; 96360; 96361; A9500; C1769; J1644; J2001; J2785; J3480; Q9967; S0028

== ENCOUNTER 2019-02-25 23:38 | Observation (INO) | payer OTHER ==
[2019-02-25 23:59] LABS: #Basophils 0.1 thou/uL (0.0-0.2); #Eosinphils 0.4 thou/uL (0.0-0.7); #Neutrophils 5.6 thou/uL (1.40-6.50); %Basophils 1.1 % (0.0-1.0); %Lymphocytes 22.4 % (21.0-51.0); %Monocytes 10.6 % (0.0-10.0); %Neutrophils 61.9 % (42.0-75.0); Hemoglobin 11.5 g/dL (14.0-18.0); Mean Corpuscular HGB CONC 33.2 g/dL (32.0-36.0); Mean Corpuscular Hemoglobin 29.5 pg (27.0-31.0); Mean Corpuscular Volume 88.7 fL (78.0-98.0); Mean Platelet Volume 6.9 fL (7.4-10.4); Platelet Count 412 thou/uL (130-400); RBC Distribution Width 12.8 % (11.5-14.5); White Blood Cell (WBC) Count 9.1 thou/uL (4.8-10.8)
[2019-02-26 00:20] LABS: ALT (SGPT) 7 U/L (8-55); AST (SGOT) 15 U/L (5-34); Alkaline Phosphatase 92 U/L (40-150); Anion Gap 13 mmol/L (10-20); BUN (Urea Nitrogen) 31 mg/dL (8.4-25.7); Bilirubin, Total 0.3 mg/dL (0.2-1.2); CK (CPK) 90 U/L (30-200); Calc. Creatinine Clearance 0 mL/min (70-130); Calcium 9.3 mg/dL (7.8-10.44); Carbon Dioxide 24 mmol/L (22-29); Chloride 101 mmol/L (98-107); Estimated GFR-MDRD 21; Globulin 3.6 g/dL (2.4-3.5); Glucose 118 mg/dL (70-105); Lipase 23 U/L (8-78); Potassium 3.8 mmol/L (3.5-5.1); Protein, Total 6.6 g/dL (6.0-8.3); Sodium 134 mmol/L (136-145)
[2019-02-26 03:26] VITALS: BMI 28.0
[2019-02-26 03:49] LABS: Troponin I 0.038 ng/mL (< 0.028)
[2019-02-26 06:40] LABS: Troponin I 0.055 ng/mL (< 0.028)
--- NOTE | 2019-02-26 07:54 | RAD ---
EXAM: Chest one view: HISTORY: Chest pain COMPARISON: 02/21/2019 FINDINGS: Heart size: Within normal limits. Lungs: Clear of acute process. No evidence for pneumonia, pleural effusion, acute edema, or pneumothorax, or other significant acute process. IMPRESSION: No significant acute intrathoracic disease.
[2019-02-26] MEDS ORDERED: Dextrose 50% Abboject 50 ML SYRINGE SLOW IVP PRN (08:12)
[2019-02-26] MEDS ORDERED: HumaLOG 300 UNITS/3 ML VIAL SC PRN ×2 (08:12)
[2019-02-26] MEDS ORDERED: Dextrose 5% in Water 1,000 ML IV PRN (08:12)
[2019-02-26] MEDS ORDERED: cloNIDine 0.1 MG TAB PO PRN (08:14)
[2019-02-26] MEDS ORDERED: Nitroglycerin 0.4 MG TAB (25 Tab Bottle) SL PRN (08:14)
[2019-02-26] MEDS ORDERED: Non-Formulary Item 1 EACH (Nifedipine 60 MG) PO SCH (09:00)
[2019-02-26] MEDS: NIFEdipine XL 60 MG TAB PO SCH (09:34)
[2019-02-26] MEDS: Carvedilol 6.25 MG TAB PO SCH (09:35)
[2019-02-26] MEDS: Aspirin 81 mg Enteric Coated Tablet PO SCH (09:35)
[2019-02-26] MEDS: Finasteride 5 MG TAB PO SCH (09:35)
[2019-02-26] MEDS: Clopidogrel Bisulfate 75 MG TAB PO SCH (09:35)
[2019-02-26] MEDS: Tamsulosin HCl 0.4 MG CAP PO SCH (09:35)
--- NOTE | 2019-02-26 10:06 | PRG ---
DATE OF SERVICE: 02/26/2019 SUBJECTIVE: A 58-year-old male with known history of CKD, who was admitted recently for chest pain and subsequently had cardiac catheterization, which showed multiple vessel disease, but nonobstructive. Nephrology was seen for management of CKD given that the patient received contrast. The patient then was also found to have proteinuria, which is being evaluated. He, however, was discharged yesterday, February 25, to follow up with Nephrology in the outpatient, but had developed chest pain on exertion in the snf and was subsequently brought back to the hospital. Of note, on return yesterday, creatinine was noted to have gone up from 2.66 to 3.06. The patient seems comfortable now and chest pain has subsided. There is no associated shortness of breath or palpitation. The patient also denied nausea, vomiting, fever, cough, or worsening leg swelling. OBJECTIVE: VITAL SIGNS: Temperature 97.4, pulse 75, respiratory rate 20, SpO2 of 96% on room air, blood pressure is 174/86. GENERAL: Middle-age male, in no obvious distress. Afebrile. Anicteric. Acyanotic. HEENT: Normocephalic, atraumatic. Oral mucosa is moist. CARDIOVASCULAR: Regular rhythm and rate with normal heart sounds. RESPIRATORY: Fair air entry bilaterally with no obvious crackle or rhonchi or use of accessory muscles. GI: Full, soft, nontender, and nondistended with normal bowel sounds. EXTREMITIES: Mild bilateral leg edema with no erythema. Distal pulses are palpable. NEUROLOGIC: Conscious, alert, oriented x3 with appropriate mental status. DIAGNOSTIC DATA: CMP on February 25 at 2350 hours showed sodium of 134, potassium of 3.8, chloride of 101, CO2 of 24, BUN of 31, creatinine 3.106, glucose 118, calcium 9.3, total bilirubin 0.3, AST 15, ALT 7, alkaline phosphatase 92, total protein 6.6, albumin 3.0, globulin 3.6. Troponin is mildly elevated with a peak of 0.055. Of note, creatinine at 9:21 a.m., February 25, was 2.69. A 24-hour urine total protein was 26674 mg and 24-hour urine creatinine was 1164 with total urine volume in a 24-hour period of 2400. Protein electrophoresis is pending at this time. ASSESSMENT AND PLAN: 1. Acute kidney injury on chronic kidney disease, 4. Contrast induced nephropathy is most likely given that yesterday was day 2/3 post contrast. We will avoid nephrotoxic agents. If, however, invasive procedure is contemplated by Cardiology, we will prefer to wait and start the patient on IV fluid and Mucinex to prevent worsening of contrast induced nephropathy. 2. Hypertension. We will restart current medications and monitor. 3. Nephrotic range proteinuria: Etiology is unclear. Diabetic nephropathy is a possibility, but given that the patient has no neuropathy and obvious retinopathy, this may not be the case. Urine and serum protein electrophoresis are pending at this time. Kidney biopsy will be considered once the acute issues are sorted out. The patient cannot be started on JAIRO inhibitor or any RAAS ralph due to acute kidney injury. We will monitor for now. Job ID: [id number]
--- NOTE | 2019-02-26 19:04 | PRG ---
DATE OF SERVICE: SUBJECTIVE: Mr. Murphy recently was discharged and was readmitted less than 24 hours later for recurrent chest pain. He underwent coronary angiography by Dr. Sachin Rodriguez this week and was found to have severe multivessel disease. Medical therapy is recommended. He had an episode of chest pain at the shelter and was therefore readmitted. OBJECTIVE: VITAL SIGNS: Blood pressure 161/77, pulse 95, temperature 97.8. GENERAL: Patient is a pleasant male, who is in no acute distress. The patient appears stated age. NEUROLOGIC: The patient is alert and oriented x3 with no focal neurologic deficits. HEENT: Sclerae without icterus. Mouth has moist mucous membranes with normal pallor. NECK: No JVD. Carotid upstroke brisk. No bruits bilaterally. LUNGS: Clear to auscultation with unlabored respirations. BACK: No scoliosis or kyphosis. CARDIAC: Regular rate and rhythm with normal S1 and S2. No S3 or S4 noted. No significant rubs, murmurs, thrills, or gallops noted throughout the precordium. PMI is not displaced. There is no parasternal heave. ABDOMEN: Soft, nontender, nondistended. No peritoneal signs present. No hepatosplenomegaly. No abnormal striae. EXTREMITIES: 2+ femoral and 2+ dorsalis pedis pulses. No cyanosis, clubbing, or edema. SKIN: No gross abnormalities. LAB: CK negative. Hemoglobin 11.5. Peak troponin 0.55. Creatinine 3.0. IMPRESSION: 1. Recurrent chest pain. 2. Severe coronary artery disease. 3. Chronic kidney disease. RECOMMENDATIONS: I discussed case with Dr. Sachin Rodriguez. At this point, we will continue with current medical therapy. He is on beta-ralph therapy in addition to nitrates. We will consider increasing Imdur to 60 mg q.a.m. we will also consider adding Ranexa. Further recommendations per Dr. Sachin Rodriguez in a.m. Job ID: [id number]
--- NOTE | 2019-02-26 20:03 | HP ---
CHIEF COMPLAINT: Chest pain. HISTORY OF PRESENT ILLNESS: Mr. Murphy is a 58-year-old male with past medical history significant for triple vessel coronary artery disease per left heart catheterization four days ago, which revealed distal lesions in the LAD and circumflex, not amenable to PTCA, and [id number] stenosis in the RCA, stage 4 chronic kidney disease, and history of dementia and cognitive defect, who presented to the hospital from his incarcerated unit with complaints of chest pain. The patient was just recently admitted to the hospital and discharged yesterday. During that hospitalization, the patient was admitted with chest pain. He underwent nuclear stress test, which revealed a moderate reversible defect in the apical anterior and anterolateral wall suspicious for myocardial ischemia. He was taken to the chemical laboratory chief by Dr. Rodriguez. Left heart catheterization showed a 75% stenosis in distal LAD, 90 % in distal left circ, 50% in the OM, 80% in the RCA, 90% in the PL branch with EF of 60% to 65%. Given the patient's stage 4 chronic kidney disease, Dr. Henry of Nephrology was consulted during that hospitalization. The patient's baseline creatinine does appear to be in the 2.6 to 2.7 range. Given his underlying disease, Dr. Henry performed close followup along with renal ultrasound. At the time of his discharge yesterday, his creatinine was at baseline. Arrangements were made for followup with the Nephrology Clinic one week post discharge, and he was discharged in good condition without any repeat of his chest pain. On arrival back to his unit, the patient states he was walking around his cell and getting his cell "in order" when he began having chest pain radiating to the arms. He states that his chest pain was relieved with nitroglycerin. Given his recent admission and discharge, he was brought back to our facility for further workup and management. On arrival, his creatinine was 3.06, just marginally higher than when it was around 2.7. The patient is at risk for acute tubular necrosis given his recent contrast. Due to his recurrent chest pain and elevated creatinine, he was admitted to the observation unit. Of note, the patient had no further episodes of chest pain during his last admission. REVIEW OF SYSTEMS: Twelve-point review of systems performed and is negative except that stated above. PAST MEDICAL HISTORY: 1. Coronary artery disease as outlined above in the HPI. 2. Hypertension. 3. Heart failure with preserved EF/diastolic dysfunction. 4. Type 2 diabetes mellitus. 5. Hyperlipidemia. 6. Asthma. 7. Early-onset dementia. 8. Stage 4 chronic kidney disease. PAST SURGICAL HISTORY: Notable for recent left heart catheterization. The patient cannot recall any previous surgeries. SOCIAL HISTORY: The patient is currently incarcerated in [facility]. There is no alcohol, drug use, or tobacco abuse at this time. ALLERGIES: NO KNOWN DRUG ALLERGIES. MEDICATIONS: Current medications which include his discharge medications from last hospitalization. 1. Carvedilol 12.5 mg a.m. and 25 mg q.p.m. 2. Clonidine 0.1 mg orally twice daily p.r.n. 3. Finasteride 5 mg daily. 4. Lasix 40 mg orally daily. 5. Imdur 30 mg orally daily. 6. Nifedipine 60 mg orally daily. 7. Sublingual nitroglycerin p.r.n. 8. Tamsulosin 0.4 mg orally daily. 9. Terazosin 1 mg orally at bedtime. 10. Aspirin 81 mg daily. 11. Glipizide 5 mg orally daily. 12. Sliding scale insulin. 13. Clopidogrel 75 mg orally daily. 14. Atorvastatin 40 mg q.p.m. 15. Novolin N 8 units subcu every evening. PHYSICAL EXAMINATION: VITAL SIGNS: Blood pressure 138/66, pulse 69, O2 saturation is 98% on room air , and respirations are 14. GENERAL: The patient is well appearing, lying in bed, in no acute distress. CV: S1 and S2. Regular rate and rhythm. No appreciable murmurs, rubs, or gallops. LUNGS: Overall clear to auscultation, faint expiratory wheeze noted on the right. ABDOMEN: Positive bowel sounds. Soft, nontender. SKIN: Warm and dry. EXTREMITIES: +1 edema bilaterally. Stable from last admission. NEUROLOGIC: Cranial nerves 2 through 12 are intact. The patient is nonfocal. LABORATORY DATA: White blood cell count 9.1, hemoglobin 11.5, hematocrit 34.7, platelets are 412. Sodium 134, potassium 3.8, BUN 31, creatinine 3.06. Troponin 0.043, 0.038, 0.055. ASSESSMENT: 1. Recurrent chest pain in a patient with known coronary artery disease, somewhat consistent with angina. 2. Acute on chronic stage 4 chronic kidney disease, with some concern for acute tubular necrosis given worsening creatinine and recent exposure to IV contrast. 3. Type 2 diabetes mellitus. 4. Hypertension. 5. Hyperlipidemia. 6. Early-onset dementia. 7. Anemia of chronic disease. 8. Urinary retention. PLAN: At this time, we will admit the patient to the observation unit for further workup and treatment. I will continue the patient's home medications as they were prescribed in his recent discharge. I will re-consult Dr. Henry and Dr. Rodriguez for further recommendations. Hopefully, we can optimize his antianginals. We will monitor his blood pressure closely. Continue aspirin, Plavix, statin, and beta ralph. Unfortunately, the patient is not a candidate for ARB or JAIRO inhibitor at this time secondary to his renal function. Appreciate Dr. Henry's recommendations and the recommendations of Dr. Rodriguez. Further recommendations based on hospital course. Job ID: [id number] MTDD
--- NOTE | 2019-02-26 20:14 | CT ---
NONCONTRAST CT HEAD: 02/26/19 HISTORY: Injury after falling and hitting head. COMPARISON: 01/10/19. FINDINGS: As noted on the prior exam, there is diminished attenuation of the periventricular white matter likel y reflective of moderate to severe chronic small vessel ischemic changes. Remote lacunar infarctions are again seen in the left basal ganglia with a stable remote infarction in the right cerebellar mundo sphere. There is no evidence of an acute cortical infarction, hemorrhage, mass effect or midline shift. The v entricular system is normal in size, shape, and position. No calvarial fracture is seen. The visualized paranasal sinuses and mastoid air cells are clear. IMPRESSION: 1. No acute intracranial abnormalities demonstrated. 2. Moderate to severe chronic small vessel ischemic changes. Given the degree of white matter is chemic change, a superimposed acute white matter ischemic event would be difficult to exclude. 3. Remote lacunar infarctions left basal ganglia with stable small remote infarction right cereb ellar hemisphere. POS: MECHE
[2019-02-26] MEDS ORDERED: Carvedilol 25 MG TAB PO SCH (21:00)
[2019-02-26] MEDS ORDERED: Terazosin HCl 1 MG CAP PO SCH (21:00)
[2019-02-26] MEDS ORDERED: Atorvastatin Calcium 40 MG TAB PO SCH (21:00)
[2019-02-27 08:38] LABS: Anion Gap 10 mmol/L (10-20); BUN (Urea Nitrogen) 30 mg/dL (8.4-25.7); Calc. Creatinine Clearance 45 mL/min (70-130); Carbon Dioxide 25 mmol/L (22-29); Chloride 106 mmol/L (98-107); Estimated GFR-MDRD 25; Glucose 130 mg/dL (70-105); Potassium 3.6 mmol/L (3.5-5.1); Sodium 137 mmol/L (136-145)
[2019-02-27] MEDS ORDERED: Carvedilol 25 MG TAB PO SCH (09:00)
[2019-02-27] MEDS ORDERED: Furosemide 40 MG TAB PO SCH (10:00)
[2019-02-27] MEDS ORDERED: Furosemide 20 MG TAB PO SCH (10:00)
--- NOTE | 2019-02-27 10:15 | PRG ---
DATE OF SERVICE: 02/27/2019 SUBJECTIVE: A 58-year-old male, admitted due to chest pain. The patient was just discharged from the hospital after cardiac catheterization, which showed multiple vessel disease. Nephrology is seeing the patient for CKD for management. No new problem. Denied chest pain, shortness of breath, or dizziness. OBJECTIVE: VITAL SIGNS: Temperature 97.8, pulse 70, respiratory rate 20, SpO2 of 97% on room air, blood pressure 164/74. GENERAL: Middle-aged male, in no obvious distress. Afebrile. Anicteric. Acyanotic. HEENT: Normocephalic and atraumatic. Pupils are reacting to light. CARDIOVASCULAR: Regular rhythm and rate with normal heart sounds 1 and 2. RESPIRATORY: Fair air entry bilaterally with few transmitted sounds. No obvious crackle was appreciated. GI: Full, soft, nontender, nondistended with normal bowel sounds. EXTREMITIES: Otgg-kn-pgylhsan bilateral leg edema noted. NEUROLOGIC: Conscious, alert, and oriented x3 with appropriate mental status. Some memory lapses were noted. DIAGNOSTIC DATA: BMP today showed sodium 137, potassium 3.6, chloride 106, CO2 of 25, BUN 30, creatinine 2.69, glucose , calcium 9.0. ASSESSMENT: 1. Acute kidney injury on chronic kidney disease stage 4, most likely due to hemodynamic factors. Creatinine is down to 2.69 from 3.01. Contrast-induced nephropathy has been ruled out. 2. Hypertension: Control is still suboptimal. 3. Nephrotic range proteinuria: Etiology is unclear. Diabetic nephropathy is a possibility as well as glomerular nephropathy. Given absence of neuropathy and obvious retinopathy, diabetic nephropathy seems unlikely. The patient will benefit from further evaluation. Serum protein and urine protein electrophoresis results are pending at this time. 4. The patient may also benefit from kidney biopsy. 5. Volume overload: Related to chronic kidney disease and hypoalbuminemia. 6. BPH with more urinary retention. The patient is on finasteride and Flomax. PLAN: 1. Increase carvedilol to 25 mg p.o. b.i.d. 2. Increase isosorbide mononitrate to 60 from 30 mg. 3. Continue nifedipine 60 mg p.o. daily. 4. Start Lasix 40 mg daily for volume management. 5. The patient can be discharged from nephrology point of view to follow up with coke still cleaner with [facility] for further evaluation and treatment. 6. We will recheck renal function in the morning with commencement of diuretics. Job ID: [id number]
[2019-02-27] MEDS: NIFEdipine XL 60 MG TAB PO SCH (10:26)
[2019-02-27] MEDS: Aspirin 81 mg Enteric Coated Tablet PO SCH (10:26)
[2019-02-27] MEDS: Finasteride 5 MG TAB PO SCH (10:26)
[2019-02-27] MEDS: Clopidogrel Bisulfate 75 MG TAB PO SCH (10:26)
[2019-02-27] MEDS: Tamsulosin HCl 0.4 MG CAP PO SCH (10:27)
[2019-02-27] MEDS: Carvedilol 6.25 MG TAB PO SCH (10:33)
[2019-02-27 15:59] VITALS: BP 140/69; TEMP 98.1
--- NOTE | 2019-02-27 18:19 | DIS ---
DATE OF ADMISSION: 02/26/2019 DATE OF DISCHARGE: 02/27/2019 CHIEF COMPLAINT ON ADMISSION: Chest pain. DISCHARGE DIAGNOSES: 1. Chest pain, resolved, acute coronary syndrome ruled out. 2. Triple-vessel coronary artery disease per left heart catheterization performed on February 22, 2019, which showed severe stenosis of the distal LAD and circumflex along with an 80% stenosis in the RCA, preserved ejection fraction, continued medical management recommended. 3. Chronic stage 4 kidney disease with nephrotic range proteinuria, no evidence of acute tubular necrosis. Creatinine, stable. 4. Hypertension. 5. Type 2 diabetes mellitus. 6. Anemia of chronic disease. 7. Known urinary retention. 8. Vascular dementia with known cognitive deficits. BRIEF HOSPITAL COURSE: Mr. Murphy is a 58-year-old incarcerated male with past medical history as outlined above, who was admitted to this facility February 22 through February 25, with presenting complaint of chest pain. He underwent MPI during that stay, which showed reversible apical anterior and anterolateral wall suspicious for myocardial ischemia. He was taken to the [facility], where left heart catheterization showed distal LAD and circumflex lesions, not amenable to PTCA, as well as an 80% stenosis in the RCA. Medical management was recommended at that time. He was also seen by Dr. Henry during the hospitalization for stage 4 chronic kidney disease, it was further investigated. During that hospitalization, his medical therapy was optimized, and he was discharged in good condition with clearance by Dr. Rodriguez and Dr. Henry. When he got back to his senior care cell, he began having some more chest discomfort as he was working in his cell, and so presented back to the hospital the next day. He was readmitted for observation. His creatinine actually had improved, and concern for acute tubular necrosis instigated by recent IV contrast was eliminated. He had no further chest discomfort. He ambulated the halls with physical therapy and had no discomfort. Kin Jeronimo was called to his room once when the patient tripped on his shackles and had a fall. There was no injury. His head CT was negative. CONSULTANTS: Dr. Henry of Nephrology. DISCHARGE CONDITION: Stable. DISCHARGE DISPOSITION: Usp. DISCHARGE MEDICATIONS: We have adjusted several of the patient's medications, he will be sent back on, 1. Aspirin 81 mg daily. 2. Clopidogrel 75 mg daily. 3. Glipizide 5 mg p.o. daily. 4. Novolin N 8 units subcu every evening, regular insulin sliding scale. 5. Atorvastatin 40 mg p.o. nightly. 6. Carvedilol 25 mg p.o. b.i.d. 7. Clonidine 0.1 mg p.o. b.i.d. p.r.n. 8. Finasteride 5 mg p.o. daily. 9. Lasix 40 mg p.o. daily. 10. Imdur 60 mg p.o. daily, which has been increased from 30 mg. 11. Nifedipine 60 mg daily. 12. P.r.n. sublingual nitroglycerin. 13. Flomax 0.4 mg p.o. daily. His terazosin was stopped. His carvedilol and Imdur were increased. DISCHARGE INSTRUCTIONS AND FOLLOWUP: The patient has an appointment with Nephrology Clinic at [facility] on March 03 for continued followup regarding his renal function and for repeat lab tests. He has ambulated with Physical Therapy, but will need a walker for stabilization. Recommendation is to continue medical therapy. He would be very high risk for repeat left heart catheterization given his underlying renal function. Continue risk factor modification including aggressive blood glucose control. He has been cleared for discharge by both Dr. Henry and Dr. Rodriguez. Job ID: [id number]
[2019-02-27] MEDS ORDERED: Atorvastatin Calcium 40 MG TAB PO SCH (21:00)
[2019-02-28] MEDS ORDERED: Furosemide 40 MG TAB PO SCH (09:00)
--- NOTE | 2019-03-03 13:11 | EKG ---
Test Reason : Blood Pressure : / mmHG Vent. Rate : 067 BPM Atrial Rate : 067 BPM P-R Int : 212 ms QRS Dur : 096 ms QT Int : 434 ms P-R-T Axes : 023 018 061 degrees QTc Int : 458 ms Sinus rhythm with 1st degree A-V block Otherwise normal ECG Confirmed by HORTENCIA BURGESS DO ([id number]), international editorial producer DIVINA GARCIA ([id number] on 03/03/2019 1:11:17 PM Referred By: Confirmed By:HORTENCIA BURGESS DO
== END 2019-02-27 18:11 ==
LOC: ERS 23:38 → EEVIPCON 23:38 → 2SW 02-26 01:38
PROVIDERS: ADMIT Internal Medicine; ATTEND Internal Medicine
DX: R07.2 Precordial pain (principal); I25.10 Atherosclerotic heart disease of native coronary artery without angina pectoris; I13.0 Hypertensive heart and chronic kidney disease with heart failure and stage 1 through stage 4 chronic kidney disease, or unspecified chronic kidney disease; E11.22 Type 2 diabetes mellitus with diabetic chronic kidney disease; N18.4 Chronic kidney disease, stage 4 (severe); I50.30 Unspecified diastolic (congestive) heart failure; D63.1 Anemia in chronic kidney disease; R80.9 Proteinuria, unspecified; N40.1 Benign prostatic hyperplasia with lower urinary tract symptoms; R33.8 Other retention of urine; R41.89 Other symptoms and signs involving cognitive functions and awareness; F01.50 Vascular dementia, unspecified severity, without behavioral disturbance, psychotic disturbance, mood disturbance, and anxiety; E78.5 Hyperlipidemia, unspecified; J45.909 Unspecified asthma, uncomplicated; E87.70 Fluid overload, unspecified; I44.0 Atrioventricular block, first degree; Z98.61 Coronary angioplasty status; Z88.0 Allergy status to penicillin; Z79.4 Long term (current) use of insulin; Z79.02 Long term (current) use of antithrombotics/antiplatelets; Z79.82 Long term (current) use of aspirin; Z79.899 Other long term (current) drug therapy
CPT/HCPCS: 36415; 36416; 70450; 71045; 80048; 82550; 82553; 83690; 84484; 85025; 93005; 94760; G0378

== ENCOUNTER 2019-03-24 14:53 | Inpatient (IN) | payer OTHER ==
--- NOTE | 2019-03-24 15:06 | CT ---
Exam: Head CT without contrast HISTORY: Left-sided gaze. Last seen normal at 6:30 the morning. Altered mental status. COMPARISON: 02/26/2019 FINDINGS: Hemorrhage: No intraparenchymal hemorrhage or extra-axial hematoma. Brain parenchyma: Limited evaluation due to motion degradation. No parenchymal mass, mass effect or m idline shift. Age-appropriate atrophy. Confluent white matter hypodensities due to chronic small vessel ischemic change. Remote lacunar infarcts in left deep posadas matter structures. Remote injury in the right cerebellar hemisphere Ventricular system: Ventricles and sulci are patent and symmetric. Calvarium: Intact. Sinuses and mastoid air cells: Adequate aeration. IMPRESSION: Limited evaluation due to motion degradation. No acute intracranial process. Results of study discuss ed with Dr. Smith 03/24/2019 at 3:02 PM Code CR
--- NOTE | 2019-03-24 15:40 | RAD ---
Exam: Chest one view HISTORY:Altered mental status Comparison: 02/25/2019 FINDINGS: Cardiac silhouette:Cardiomegaly. Aorta: Unremarkable Pulmonary vessels: Mildly prominent Costophrenic angles: Clear LUNGS: Patchy interstitial opacities. Pneumothorax: None Osseous abnormalities: None IMPRESSION: . Patchy interstitial opacities. Correlate for edema/volume overload.
[2019-03-24 15:42] LABS: #Basophils 0.1 thou/uL (0.0-0.2); #Eosinphils 0.1 thou/uL (0.0-0.7); #Lymphocytes 1.3 thou/uL (1.20-3.40); #Monocytes 0.7 thou/uL (0.11-0.59); #Neutrophils 8.5 thou/uL (1.40-6.50); %Basophils 0.6 % (0.0-1.0); %Eosinophils 0.8 % (0.0-10.0); %Monocytes 6.7 % (0.0-10.0); %Neutrophils 79.9 % (42.0-75.0); Hemoglobin 10.4 g/dL (14.0-18.0); Mean Corpuscular HGB CONC 33.2 g/dL (32.0-36.0); Mean Corpuscular Hemoglobin 29.5 pg (27.0-31.0); Mean Corpuscular Volume 88.9 fL (78.0-98.0); Mean Platelet Volume 7.3 fL (7.4-10.4); Platelet Count 292 thou/uL (130-400); RBC Distribution Width 13.5 % (11.5-14.5); Red Blood Cell (RBC) Count 3.51 mill/uL (4.70-6.10); White Blood Cell (WBC) Count 10.6 thou/uL (4.8-10.8)
[2019-03-24 15:51] LABS: PTT 22.1 SEC (22.9-36.1)
[2019-03-24 16:05] LABS: ALT (SGPT) 12 U/L (8-55); AST (SGOT) 24 U/L (5-34); Albumin 2.5 g/dL (3.5-5.0); Alkaline Phosphatase 84 U/L (40-150); Anion Gap 13 mmol/L (10-20); BUN (Urea Nitrogen) 29 mg/dL (8.4-25.7); Bilirubin, Total 0.4 mg/dL (0.2-1.2); Calc. Creatinine Clearance 0 mL/min (70-130); Calcium 8.4 mg/dL (7.8-10.44); Carbon Dioxide 26 mmol/L (22-29); Chloride 97 mmol/L (98-107); Estimated GFR-MDRD 21; Globulin 2.9 g/dL (2.4-3.5); Glucose 139 mg/dL (70-105); Potassium 3.2 mmol/L (3.5-5.1); Protein, Total 5.4 g/dL (6.0-8.3); Sodium 133 mmol/L (136-145)
[2019-03-24 16:07] LABS: Bacteria/HPF None Seen HPF (None Seen); Bilirubin Negative (Negative); Blood, Urine 1+ (Negative); Clarity Clear (Clear); Glucose, Urine (Dipstick) 70 mg/dL (Negative); Leukocyte Negative Leu/uL (Negative); Nitrite Negative (Negative); Protein, Urine (Dipstick) 300 mg/dL (Neg-Trace); RBC/HPF 0-3 HPF (0-3); Squamous Epithelial 0-3 HPF (0-3); Urobilinogen Normal mg/dL (Less than 2); WBC/HPF 0-3 HPF (0-3)
[2019-03-24 16:20] LABS: Amphetamine Not Detected (NotDetected); Barbiturates Screen Not Detected (NotDetected); Benzodiazepine Screen Not Detected (NotDetected); Cocaine Metabolite Screen Not Detected (NotDetected); Medtox Control Line Valid? VALID (VALID); Medtox Reader # READER 1; Methadone Not Detected (NotDetected); Methamphetamine Not Detected (NotDetected); Opiate Screen Not Detected (NotDetected); Oxycodone Screen Not Detected (NotDetected); Phencyclidine (PCP) Not Detected (NotDetected); THC/Cannabinoid Screen Not Detected (NotDetected); Tricyclic Screen Not Detected (NotDetected)
[2019-03-24] MEDS ORDERED: hydrALAZINE 20 MG/ML VIAL ONE ×2 (16:26→17:47)
[2019-03-24 16:27] LABS: CKMB 5.1 ng/mL (0-6.6)
[2019-03-24] MEDS ORDERED: Aspirin 300 MG Suppository ONE (17:55)
[2019-03-24] MEDS ORDERED: niCARdipine 20MG In NaCl 20 MG/200 ML BAG ONE (18:48)
[2019-03-24] MEDS ORDERED: niCARdipine 20MG In NaCl 20 MG/200 ML BAG IVPB SCH (19:00)
[2019-03-24 19:39] LABS: Troponin I 0.067 ng/mL (< 0.028)
[2019-03-24] MEDS ORDERED: HumaLOG 300 UNITS/3 ML VIAL SC PRN (22:00)
[2019-03-24] MEDS ORDERED: Bisacodyl 10 MG SUPP PR PRN (22:00)
[2019-03-24] MEDS ORDERED: Ondansetron PF 4 MG/2 ML Vial IVP PRN (22:00)
[2019-03-24] MEDS ORDERED: Nitroglycerin 0.4 MG TAB (25 Tab Bottle) SL PRN (22:00)
[2019-03-24] MEDS ORDERED: Dextrose 50% Abboject 50 ML SYRINGE SLOW IVP PRN (22:00)
[2019-03-24] MEDS ORDERED: Loperamide HCl 2 MG CAP PO PRN (22:00)
[2019-03-24] MEDS ORDERED: Artificial Tears 18 DROP/0.9 ML EA EYE PRN (22:00)
[2019-03-24] MEDS ORDERED: Senokot S 8.6-50 MG TAB PO PRN (22:00)
[2019-03-24] MEDS ORDERED: Potassium Chloride 20 MEQ TAB PO SCH (22:00)
[2019-03-24] MEDS ORDERED: Dextrose 5% in Water 1,000 ML IV PRN (22:00)
[2019-03-24] MEDS ORDERED: Loratadine 10 MG TAB PO PRN (22:00)
[2019-03-24] MEDS ORDERED: Sodium Chloride 0.65% Nasal 44 ML BOT EA NARE PRN (22:00)
[2019-03-24] MEDS ORDERED: Diabetic Tussin 200 MG/10 ML UDCUP PO PRN (22:00)
[2019-03-24] MEDS ORDERED: Ondansetron ODT 4 MG TAB PO PRN (22:00)
[2019-03-24] MEDS ORDERED: Atorvastatin Calcium 40 MG TAB PO SCH (22:15)
[2019-03-24] MEDS ORDERED: Heparin 5,000 UNITS/ML VIAL SC SCH (22:15)
--- NOTE | 2019-03-24 23:06 | HP ---
PRIMARY CARE PHYSICIAN: The patient is from retirement. REASON FOR ADMISSION: Encephalopathy, hypertensive emergency. HISTORY OF PRESENT ILLNESS: A 58-year-old male, who was first time admitted in our hospital in December. At that time, he had echocardiography, which showed diastolic dysfunction. MRI was unremarkable. Subsequently, he had another admission in January. At that time, he had a stress test, which was abnormal and that is why the patient underwent cardiac catheterization, which showed 3-vessel CAD, and aggressive medical management was advised. Subsequently, the patient had another admission in February 2019 with the chest pain and he was discharged next day back to sn[facility]. This time , the patient is brought from retirement because he was having very high blood pressure. As per report, the patient was weak. He was not able to follow any commands. He had gaze palsy. As per report, the patient had right-sided neglect. He was last seen normal this morning. Today, in the emergency room, the patient had CT brain , which was unremarkable. Chest x-ray showed cardiomegaly and pulmonary vascular congestion. He also has indeterminate troponin, which is chronically elevated. He has elevated BNP and he has acute on chronic kidney failure with some electrolyte abnormality. I tried to get history from the patient, but the patient was completely encephalopathic, unable to provide any history. The patient has bedside guard. They also does not know about history. REVIEW OF SYSTEMS: All review of systems tried to review with the patient, but unable to review because of encephalopathy. PAST MEDICAL HISTORY: Three-vessel coronary artery disease, hypertension, chronic diastolic heart failure, diabetes type 2, dyslipidemia, asthma, dementia, stage 4 chronic kidney disease, and benign enlargement of prostate. PAST SURGICAL HISTORY: Cardiac catheterization. PAST PSYCHIATRIC HISTORY: Reviewed and negative. SOCIAL HISTORY: The patient is currently incarcerated in retirement. No history of tobacco, alcohol, or illicit drug abuse. ALLERGIES: NO KNOWN DRUG ALLERGIES. CURRENT HOME MEDICATIONS: As per our recent discharge from hospital, the patient is on following medications; 1. Aspirin 81 mg daily. 2. Plavix 75 mg daily. 3. Glipizide 5 mg daily. 4. NPH insulin 12 units subcu in the morning and 8 units subcu in the evening, regular insulin as per sliding scale. 5. Nitroglycerin p.r.n. basis. 6. Lipitor 40 mg p.o. at bedtime. 7. Coreg 25 mg b.i.d. 8. Clonidine 0.1 mg b.i.d. p.r.n. 9. Proscar 5 mg daily. 10. Lasix 40 mg daily. 11. Imdur 60 mg daily. 12. Procardia XL 60 mg daily. 13. Flomax 0.4 mg p.o. daily. FAMILY HISTORY: No strong family history of premature coronary artery disease, stroke, or cancer as per report. PHYSICAL EXAMINATION: VITAL SIGNS: On arrival, blood pressure is recorded 252/129, pulse 59, respiratory rate 15, temperature 97.9, saturation 96% on room air. Weight 110 kg. GENERAL: The patient is completely disoriented, mumbling, unable to understand him, is not cooperative with examination. He is hypertensive. HEENT: Head; normocephalic, atraumatic. Eyes; grossly unremarkable. Pupils reactive to light. No nystagmus noted. ENT; oropharynx within normal limits. Moist mucous membranes. NECK: Supple. No meningeal signs of irritation. No JVD. No thyromegaly. No carotid bruit. LUNGS: Coarse breath sounds, but no rales. No accessory muscles of respiration in use. CARDIAC: S1, S2 regular. No obvious murmur noted. No gallop. No rub. ABDOMEN: Soft, bowel sounds present. Nontender. Nondistended. No organomegaly. No mass. No suprapubic tenderness. BACK: Examination unremarkable. No CVA tenderness. EXTREMITIES: Upper extremities, passive movement of all joints are normal. Lower extremities, passive movement of all joints are normal. Pitting edema noted bilaterally. NEUROLOGIC: Unable to assess at this point because the patient is not cooperative. SKIN: No skin rash. PSYCHIATRIC: Unable to assess at this point. SIGNIFICANT LABORATORY DATA: EKG showing sinus bradycardia, first-degree AV block, nonspecific ST-T changes. CT brain based on my review, no acute intracranial process. Chest x-ray showing cardiomegaly, pulmonary vascular congestion. CBC; WBC 10.6, hemoglobin 10.4, platelet 292. INR 1.0. BMP; sodium 133, potassium 3.2, chloride 97, BUN 29, creatinine 3.12, glucose 139, calcium 8.4. LFT; AST 24, ALT 12, alkaline phosphatase 84, albumin 2.5. CK-MB 5.1, troponin 0.075 and then 0.067. BNP 330.5. Urinalysis unremarkable. Urine drug screen negative. ASSESSMENT AND PLAN: 1. Hypertensive emergency. 2. Encephalopathy, most likely related with hypertensive encephalopathy/ posterior reversible encephalopathic syndrome, trace, rule out cerebrovascular accident. 3. Three-vessel coronary artery disease. 4. Diabetes type 2. 5. Acute on chronic kidney failure, baseline chronic kidney disease, stage 4. 6. Hyponatremia. 7. Hypokalemia. 8. Chronically elevated troponin. 9. Normocytic normochromic anemia. 10. Obesity. 11. Benign enlargement of prostate. 12. Dyslipidemia. 13. Chronic stage C diastolic heart failure. PLAN: 1. Admission to stroke floor, neurology consultation, MRI brain, echocardiography, serial cardiac enzyme. 2. Selected home medications will be restarted. 3. We will repeat labs tomorrow including lipid profile, magnesium, phosphorus, PTH, and ammonia. 4. Speech therapy evaluation. 5. Physical therapy and occupational therapy consultation. 6. Deep venous thrombosis prophylaxis, heparin 5000 units subcu twice daily. 7. Gastrointestinal prophylaxis, Pepcid 20 mg daily. CODE STATUS: The patient is full code. DISPOSITION PLAN: Based on clinical course, we are expecting the patient's stay in hospital more than 2 midnights. Plan of care discussed with the patient. Job ID: [id number] MTDD
[2019-03-25] MEDS: Labetalol HCl 100 MG/20 ML VIAL SLOW IVP PRN (00:28)
[2019-03-25 03:51] LABS: #Lymphocytes 0.9 thou/uL (1.20-3.40); #Monocytes 0.6 thou/uL (0.11-0.59); #Neutrophils 10.2 thou/uL (1.40-6.50); %Basophils 0.4 % (0.0-1.0); %Eosinophils 0.2 % (0.0-10.0); %Lymphocytes 7.4 % (21.0-51.0); %Monocytes 5.4 % (0.0-10.0); %Neutrophils 86.6 % (42.0-75.0); Hemoglobin 11.8 g/dL (14.0-18.0); Mean Corpuscular HGB CONC 33.9 g/dL (32.0-36.0); Mean Corpuscular Hemoglobin 29.9 pg (27.0-31.0); Mean Corpuscular Volume 88.2 fL (78.0-98.0); Mean Platelet Volume 7.5 fL (7.4-10.4); Platelet Count 322 thou/uL (130-400); RBC Distribution Width 13.5 % (11.5-14.5); Red Blood Cell (RBC) Count 3.94 mill/uL (4.70-6.10); White Blood Cell (WBC) Count 11.7 thou/uL (4.8-10.8)
[2019-03-25 03:58] LABS: ALT (SGPT) 10 U/L (8-55); AST (SGOT) 20 U/L (5-34); Albumin 2.5 g/dL (3.5-5.0); Alkaline Phosphatase 88 U/L (40-150); Anion Gap 15 mmol/L (10-20); BUN (Urea Nitrogen) 31 mg/dL (8.4-25.7); Bilirubin, Total 0.5 mg/dL (0.2-1.2); Calc. Creatinine Clearance 35 mL/min (70-130); Calcium 8.7 mg/dL (7.8-10.44); Carbon Dioxide 25 mmol/L (22-29); Cardiac Risk 4.7 (Less than 4.5); Chloride 100 mmol/L (98-107); Cholesterol 229 mg/dl (< 200 Desired); Estimated GFR-MDRD 19; Globulin 3.1 g/dL (2.4-3.5); Glucose 158 mg/dL (70-105); HDL Cholesterol 49 mg/dL (>60 Neg Risk); LDL Cholesterol, Calculated 160 mg/dL; Magnesium 1.8 mg/dL (1.6-2.6); Phosphorus 4.6 mg/dL (2.3-4.7); Potassium 3.2 mmol/L (3.5-5.1); Protein, Total 5.6 g/dL (6.0-8.3); Sodium 137 mmol/L (136-145); Triglycerides 101 mg/dL (Less than 150)
[2019-03-25] MEDS: Heparin 5,000 UNITS/ML VIAL SC SCH ×2 (09:20→20:52)
[2019-03-25] MEDS: Aspirin 300 MG Suppository PR SCH (09:20)
[2019-03-25] MEDS: Aspirin Chewable 81 MG TAB PO SCH (09:23)
[2019-03-25] MEDS: Famotidine 20 MG TAB PO SCH (09:23)
[2019-03-25] MEDS: Clopidogrel Bisulfate 75 MG TAB PO SCH (09:23)
[2019-03-25] MEDS: Ferrous Sulfate 325 MG TAB PO SCH (09:23)
[2019-03-25] MEDS ORDERED: Lorazepam 2 MG/ML VIAL SLOW IVP PRN (12:05)
--- NOTE | 2019-03-25 14:44 | MRI ---
MRI BRAIN WITHOUT CONTRAST: HISTORY: TIA, altered mental status COMPARISON: 01/11/2019 CORRELATION: CT scan from 03/24/2019. FINDINGS: No restricted diffusion is seen. There are multiple foci of T2 prolongation in the periventricular wh ite matter, consistent with chronic small vessel ischemic disease. Old lacunar infarctions are again seen. The ventricular size is appropriate and the basilar cisterns are patent. No evidence of acute infarct, hemorrhage, midline shift or abnormal extra-axial fluid collections is seen. There is mucosal disease in the paranasal sinuses. IMPRESSION: No evidence of acute intracranial process.
[2019-03-25] MEDS ORDERED: Clopidogrel Bisulfate 75 MG TAB PO SCH (16:45)
[2019-03-25] MEDS ORDERED: Famotidine 20 MG TAB PO SCH (16:45)
[2019-03-25] MEDS ORDERED: Ferrous Sulfate 325 MG TAB PO SCH (16:45)
[2019-03-25] MEDS ORDERED: Aspirin Chewable 81 MG TAB PO SCH (16:45)
--- NOTE | 2019-03-25 17:05 | PDOC.HOSPP ---
- Subjective Encounter Date: 03/25/19 Encounter Time: 17:03 Subjective: Mr. Murphy was seen today in follow-up of right sided weakness. When I came to see him he was sleepy ( after his MRI) . No new complaits voiced. - Objective Vital Signs & Weight: Vital Signs (12 hours) Temp Pulse Pulse Pulse Pulse Resp BP 03/25/19 15:58 98.7 F 65 20 03/25/19 13:47 95 86 68 214/97 H 03/25/19 13:45 95 86 86 214/97 H 03/25/19 12:20 97.3 F L 80 03/25/19 09:35 99.6 F 86 25 H 03/25/19 09:30 03/25/19 05:36 98.6 F BP BP BP Pulse Ox 03/25/19 15:58 188/87 H 98 03/25/19 13:47 139/84 192/84 H 03/25/19 13:45 139/84 192/84 H 03/25/19 12:20 152/68 H 97 03/25/19 09:35 177/74 H 96 03/25/19 09:30 96 03/25/19 05:36 170/76 H Weight Weight 223 lb 1.6 oz Result Diagrams: 03/25/19 03:35 03/25/19 03:35 Additional Labs: Accuchecks 03/25/19 03/25/19 03/25/19 16:51 12:26 05:51 POC Glucose 143 H 135 H 141 H Hospitalist ROS - Medication Medications: Active Medications Generic Name Dose Route Start Last Admin Trade Name Freq PRN Reason Stop Dose Admin Aspirin 300 mg 03/25/19 09:00 03/25/19 09:20 Aspirin MS 300 mg DAILY [facility] Administration Aspirin 81 mg 03/25/19 09:00 03/25/19 09:23 Aspirin Chewable PO Not Given DAILY [facility] Clopidogrel Bisulfate 75 mg 03/25/19 09:00 03/25/19 09:23 Plavix PO Not Given DAILY [facility] Famotidine 20 mg 03/25/19 09:00 03/25/19 09:23 Pepcid PO Not Given DAILY [facility] Ferrous Sulfate 325 mg 03/25/19 08:00 03/25/19 09:23 Feosol PO Not Given [facility] Heparin Sodium (Porcine) 5,000 units 03/25/19 09:00 03/25/19 09:20 Heparin SC 5,000 units BID [facility] Administration Labetalol HCl 20 mg 03/24/19 22:00 03/25/19 00:28 Normodyne SLOW IVP 20 mg Q4H PRN Administration SBP > 180 and HR >/= 70 Lorazepam 1 mg 03/25/19 12:05 03/25/19 14:12 Ativan SLOW IVP 1 mg Q8H PRN Administration Agitation - Exam Eye: PERRL, anicteric sclera Heart: RRR, no murmur, no gallops, no rubs, normal peripheral pulses Respiratory: CTAB, no wheezes, no rales, no ronchi, normal chest expansion Gastrointestinal: soft, non-distended, normal bowel sounds Extremities: no cyanosis, no edema Neurological: CN's grossly intact (Moving all extremities, there is no facial assymetry) Hosp A/P (1) Kash-neglect of right side Code(s): R41.4 - NEUROLOGIC NEGLECT SYNDROME Status: Acute (2) Diabetes mellitus type 2 in obese Code(s): E11.69 - TYPE 2 DIABETES MELLITUS WITH OTHER SPECIFIED COMPLICATION; E66.9 - OBESITY, UNSPECIFIED Status: Chronic (3) HTN (hypertension) Code(s): I10 - ESSENTIAL (PRIMARY) HYPERTENSION Status: Chronic - Plan * Right sided neglect- ? etiology- he appears Neurologically stable * MRI is negative, and he had a similar work-up noted in review of his records about 2 months ago * HTN- blood pressure is elevated due to his medications were held prior to MRI - these will be administered now * Stable for [facility] back to the [facility]
[2019-03-25] MEDS: hydrALAZINE 20 MG/ML VIAL SLOW IVP PRN (20:52)
[2019-03-25] MEDS ORDERED: Atorvastatin Calcium 40 MG TAB PO SCH (21:00)
--- NOTE | 2019-03-25 21:04 | CON ---
DATE OF CONSULTATION: 03/25/2019 CONSULTING PHYSICIAN: Hospitalist Service. HISTORY OF PRESENT ILLNESS: Mr. Murphy presented with a possible stroke symptoms. He came into the emergency room. His lab work showed mildly elevated white blood cell count of 11.7. His urine suggested the possibility of urinary tract infection. Since admission, we were able to obtain an MRI of the brain which was unremarkable for any acute ischemic event. PAST MEDICAL HISTORY: Diabetes, hypertension, coronary disease status post stents. MEDICATIONS: Included; 1. Aspirin. 2. Plavix. 3. Statin. ALLERGIES: PENICILLIN. SOCIAL HISTORY: He is an inmate. FAMILY HISTORY: Not obtainable. REVIEW OF SYSTEMS: Not obtainable. PHYSICAL EXAMINATION: VITAL SIGNS: Blood pressure 188/87, pulse 65, respirations 20, temperature 98.7. At this point, he has been a bit more hypertensive earlier with 214/97. HEENT: Pupils are equal. Conjunctivae are clear. Cranium, normocephalic and atraumatic. In attempt to get him to respond and cooperate with the exam, I stimulated him both verbally and tactilely, could not get him to open his eyes and to follow any commands. His face appeared to be symmetric. With stimulation of the feet, he would withdraw bilaterally in appropriate fashion. No abnormal movements were seen. Gait was not testable. I suspect that he is more than likely malingering. He has had prior MRIs for similar neurologic symptoms which have been negative in the past. He is currently on an appropriate stroke prevention plan. I do not see anything I can offer at this point. Job ID: [id number]
[2019-03-25] MEDS ORDERED: Carvedilol 25 MG TAB PO SCH (22:45)
[2019-03-26] MEDS: hydrALAZINE 20 MG/ML VIAL SLOW IVP PRN ×2 (01:10→06:11)
--- NOTE | 2019-03-26 01:10 | PDOC.EVN ---
Event Note - Event Note Event Note: Patient's BP remained elevated, >200s systolic. He did not receive his oral BP meds earlier in the day. PT notes reviewed. Patient is full assist and cannot ambulate/stand at this point, which per care home guards is not back to baseline where he was living in the care home. [facility] guards unable to transfer patient at this time as they do not have the right vehicle to transport him safely since he cannot walk or hold himself upright in a chair. Discharge held until BP < 180. [facility].
[2019-03-26] MEDS: Labetalol HCl 100 MG/20 ML VIAL SLOW IVP PRN (04:40)
--- NOTE | 2019-03-26 05:39 | DIS ---
DATE OF ADMISSION: 03/24/2019 DATE OF DISCHARGE: 03/25/2019 DISCHARGE DISPOSITION: Back to nursing home. DISCHARGE DIAGNOSES: 1. Encephalopathy. 2. Diabetes mellitus, type 2. 3. Coronary artery disease. 4. Hyponatremia. 5. Chronic kidney disease, stage 4. 6. Benign prostatic hyperplasia. DISCHARGE MEDICATIONS: Include; 1. Flomax 0.4 mg daily. 2. Nitrostat 0.4 mg daily. 3. Procardia, we will increase this to 90 mg daily. 4. Imdur 60 mg daily. 5. Finasteride 5 mg daily. 6. Clonidine 0.1 mg as needed twice daily. 7. Carvedilol 25 mg twice daily. 8. Lipitor 40 mg daily. 9. Glipizide 5 mg daily. 10. Plavix 75 mg daily. 11. Aspirin 81 mg a day. 12. Novolin N 8 units in the p.m., 12 units in the morning. 13. Novolin R sliding scale. CODE STATUS: Full code. ALLERGIES: TO PENICILLIN. PROCEDURES DONE DURING THIS ADMISSION: The patient had a CT scan of the brain, which was negative for any acute intracranial process. Also, had an MRI of the brain, which was negative for stroke. HOSPITAL COURSE: Mr. Murphy is a 58-year-old gentleman, who was sent over from the nursing home due to elevated blood pressure as well as some complaints of gaze palsy. The full details of which are outlined in the history and physical. He was placed in observation. An MRI of the brain was done, which was negative and the patient's dose of Procardia was increased from 60 mg up to 90. Hopefully, this will improve his blood pressure and he is being discharged back to the nursing home. At the time of discharge, the patient was neurologically intact without any new or additional deficits. Job ID: [id number]
[2019-03-26] MEDS ORDERED: cloNIDine 0.1 MG TAB PO PRN (09:16)
[2019-03-26] MEDS: Carvedilol 25 MG TAB PO SCH ×2 (09:27→20:39)
[2019-03-26] MEDS: Clopidogrel Bisulfate 75 MG TAB PO SCH (09:27)
[2019-03-26] MEDS: Famotidine 20 MG TAB PO SCH (09:27)
[2019-03-26] MEDS: Ferrous Sulfate 325 MG TAB PO SCH (09:27)
[2019-03-26] MEDS: NIFEdipine XL 90 MG TAB PO SCH (09:28)
[2019-03-26] MEDS: Heparin 5,000 UNITS/ML VIAL SC SCH ×2 (09:32→20:39)
[2019-03-26] MEDS: Aspirin Chewable 81 MG TAB PO SCH (10:03)
[2019-03-26] MEDS: Aspirin 300 MG Suppository PR SCH (10:03)
[2019-03-26] MEDS: hydrALAZINE 25 MG TAB PO SCH ×2 (15:47→20:38)
--- NOTE | 2019-03-26 15:56 | PDOC.HOSPP ---
- Subjective Encounter Date: 03/26/19 Encounter Time: 11:00 Subjective: Mr. Murphy was seen today in follow-up of metabolic encephalopathy. He is more alert today ( yesterday he was very drowsy). He will follow commands, open his eyes, and follow you, but keeps repeating the same words over and over ( ok and alright) - Objective Vital Signs & Weight: Vital Signs (12 hours) Temp Pulse Resp BP BP BP Pulse Ox 03/26/19 15:47 63 167/71 H 03/26/19 11:55 97.9 F 63 18 158/72 H 97 03/26/19 09:29 132/60 03/26/19 09:28 57 L 132/60 03/26/19 08:00 96 03/26/19 07:43 99.1 F 81 14 183/84 H 96 03/26/19 06:11 75 215/93 H 03/26/19 06:09 75 215/93 H 03/26/19 05:40 64 173/75 H 03/26/19 04:40 99 239/110 H 03/26/19 04:00 97.8 F 99 16 239/110 H 96 Weight Weight 223 lb 1.6 oz Result Diagrams: 03/25/19 03:35 03/25/19 03:35 Additional Labs: Accuchecks 03/26/19 03/26/19 03/25/19 11:19 06:12 20:52 POC Glucose 116 H 121 H 114 H 03/25/19 16:51 POC Glucose 143 H Hospitalist ROS - Medication Medications: Active Medications Generic Name Dose Route Start Last Admin Trade Name Simon PRN Reason Stop Dose Admin Carvedilol 25 mg 03/26/19 09:00 03/26/19 09:27 Coreg PO Not Given BID [facility] Clopidogrel Bisulfate 75 mg 03/25/19 09:00 03/26/19 09:27 Plavix PO Not Given DAILY [facility] Famotidine 20 mg 03/25/19 09:00 03/26/19 09:27 Pepcid PO Not Given DAILY [facility] Ferrous Sulfate 325 mg 03/25/19 08:00 03/26/19 09:27 Feosol PO Not Given [facility] Heparin Sodium (Porcine) 5,000 units 03/25/19 09:00 03/26/19 09:32 Heparin SC 5,000 units BID [facility] Administration Hydralazine HCl 10 mg 03/24/19 22:00 03/26/19 06:11 Apresoline SLOW IVP 10 mg Q4H PRN Administration SBP > 180 and HR < 70 Hydralazine HCl 25 mg 03/26/19 15:00 03/26/19 15:47 Apresoline PO 25 mg TID [facility] Administration Isosorbide Mononitrate 60 mg 03/26/19 09:00 03/26/19 09:28 Imdur PO Not Given DAILY [facility] Labetalol HCl 20 mg 03/24/19 22:00 03/26/19 04:40 Normodyne SLOW IVP 20 mg Q4H PRN Administration SBP > 180 and HR >/= 70 Lorazepam 1 mg 03/25/19 12:05 03/25/19 14:12 Ativan SLOW IVP 1 mg Q8H PRN Administration Agitation Nifedipine 90 mg 03/26/19 09:00 03/26/19 09:28 Procardia Xl PO Not Given DAILY [facility] Sodium Chloride 10 ml 03/24/19 22:00 03/26/19 09:32 Flush - Normal Saline IVF 10 ml PRN PRN Administration Saline Flush - Exam Eye: PERRL Heart: RRR, no murmur, no gallops, no rubs, normal peripheral pulses Respiratory: CTAB, no wheezes, no rales, no ronchi, normal chest expansion Gastrointestinal: soft, non-tender, non-distended, normal bowel sounds, no palpable masses, no hepatomegaly, no splenomegaly Extremities: no cyanosis, no clubbing, no edema Neurological: CN's grossly intact, normal sensation to touch, no weakness, no focal deficits Psychiatric: normal affect Hosp A/P (1) Kash-neglect of right side Code(s): R41.4 - NEUROLOGIC NEGLECT SYNDROME Status: Acute (2) Diabetes mellitus type 2 in obese Code(s): E11.69 - TYPE 2 DIABETES MELLITUS WITH OTHER SPECIFIED COMPLICATION; E66.9 - OBESITY, UNSPECIFIED Status: Chronic (3) HTN (hypertension) Code(s): I10 - ESSENTIAL (PRIMARY) HYPERTENSION Status: Chronic - Plan * Right sided neglect- and altered mental status- He has been evaluated by Neurology, and it is suspected that he is malingering. I would agree * MRI is negative, and he had a similar work-up noted in review of his records about 2 months ago * HTN- blood pressure is better now * Stable for discharge back to the group home- likely to a medical unit
[2019-03-26] MEDS: Acetaminophen 325 MG TAB PO PRN (17:47)
[2019-03-26] MEDS: HumaLOG 300 UNITS/3 ML VIAL SC PRN (17:47)
[2019-03-26] MEDS: Atorvastatin Calcium 40 MG TAB PO SCH (20:38)
[2019-03-26] MEDS: NPH, Human Insulin Isophane 300 UNIT/3 ML VIAL SC SCH (20:49)
[2019-03-27] MEDS: cloNIDine 0.1 MG TAB PO PRN (06:12)
[2019-03-27] MEDS: Aspirin 81 mg Enteric Coated Tablet PO SCH (08:51)
[2019-03-27] MEDS: Ferrous Sulfate 325 MG TAB PO SCH (08:52)
[2019-03-27] MEDS: glipiZIDE 5 MG TAB PO SCH (08:54)
[2019-03-27] MEDS: NIFEdipine XL 90 MG TAB PO SCH (08:54)
[2019-03-27] MEDS: Tamsulosin HCl 0.4 MG CAP PO SCH (08:55)
[2019-03-27] MEDS: Carvedilol 25 MG TAB PO SCH (08:55)
[2019-03-27] MEDS: hydrALAZINE 25 MG TAB PO SCH (08:56)
[2019-03-27] MEDS: Furosemide 40 MG TAB PO SCH (08:56)
[2019-03-27] MEDS: Finasteride 5 MG TAB PO SCH (08:56)
[2019-03-27] MEDS: Clopidogrel Bisulfate 75 MG TAB PO SCH (08:57)
[2019-03-27] MEDS: NPH, Human Insulin Isophane 300 UNIT/3 ML VIAL SC SCH ×2 (08:57→20:54)
[2019-03-27] MEDS: Famotidine 20 MG TAB PO SCH (08:57)
[2019-03-27] MEDS: Heparin 5,000 UNITS/ML VIAL SC SCH ×2 (08:57→20:54)
[2019-03-27] MEDS: Acetaminophen 325 MG TAB PO PRN (09:07)
[2019-03-27] MEDS ORDERED: Sodium Chloride 0.9% 250 ML IV SCH (11:45)
[2019-03-27] MEDS ORDERED: Sodium Chloride 0.9% 250 ML 250 ML IV SCH (13:15)
[2019-03-27] MEDS: Carvedilol 6.25 MG TAB PO SCH (20:55)
[2019-03-27] MEDS: Atorvastatin Calcium 40 MG TAB PO SCH (20:55)
[2019-03-28] MEDS: Zolpidem Tartrate 5 MG TAB PO PRN ×2 (01:07→21:36)
[2019-03-28 08:13] LABS: Anion Gap 11 mmol/L (10-20); BUN (Urea Nitrogen) 43 mg/dL (8.4-25.7); Calc. Creatinine Clearance 32 mL/min (70-130); Calcium 8.2 mg/dL (7.8-10.44); Carbon Dioxide 28 mmol/L (22-29); Chloride 106 mmol/L (98-107); Estimated GFR-MDRD 18; Glucose 87 mg/dL (70-105); Sodium 142 mmol/L (136-145)
[2019-03-28 08:17] LABS: Potassium 2.8 mmol/L (3.5-5.1)
[2019-03-28] MEDS: Ferrous Sulfate 325 MG TAB PO SCH (08:52)
[2019-03-28] MEDS: Potassium Chloride 20 MEQ TAB PO SCH ×2 (08:52→12:09)
[2019-03-28] MEDS: Carvedilol 6.25 MG TAB PO SCH ×2 (08:52→21:39)
[2019-03-28] MEDS: Aspirin 81 mg Enteric Coated Tablet PO SCH (08:52)
[2019-03-28] MEDS: Furosemide 40 MG TAB PO SCH ×2 (08:53→21:39)
[2019-03-28] MEDS: NIFEdipine XL 90 MG TAB PO SCH (08:53)
[2019-03-28] MEDS: Famotidine 20 MG TAB PO SCH (08:53)
[2019-03-28] MEDS: Finasteride 5 MG TAB PO SCH (08:53)
[2019-03-28] MEDS: Clopidogrel Bisulfate 75 MG TAB PO SCH (08:53)
[2019-03-28] MEDS: glipiZIDE 5 MG TAB PO SCH (08:53)
[2019-03-28] MEDS: Tamsulosin HCl 0.4 MG CAP PO SCH (08:54)
[2019-03-28] MEDS: Heparin 5,000 UNITS/ML VIAL SC SCH ×2 (08:54→21:41)
[2019-03-28] MEDS: HYDROcodone/Acetaminophen 5/325 mg Tablet PO PRN (08:54)
[2019-03-28] MEDS: NPH, Human Insulin Isophane 300 UNIT/3 ML VIAL SC SCH ×2 (08:55→21:40)
[2019-03-28] MEDS: HumaLOG 300 UNITS/3 ML VIAL SC PRN (11:23)
--- NOTE | 2019-03-28 12:10 | PRG ---
DATE OF SERVICE: 03/28/2019 SUBJECTIVE: The patient is seen and examined at bedside. There are one guard in the room and one guard in outside of the room. The patient seems to be doing better today. He is sitting up and eating his breakfast. He does not have much complaints to offer. OBJECTIVE: VITAL SIGNS: Blood pressure is 133/63, pulse is 72, respiratory rate is 18, O2 saturation is 98% on room air, and his temperature is 98.6. HEENT: His sclerae are nonicteric. Oral mucosa is moist. LUNGS: Clear. HEART: S1 and S2 normal. No S3. No S4. ABDOMEN: Soft, nontender, nondistended. EXTREMITIES: He has handcuffs on. IMPRESSION: 1. Encephalopathy, improved. 2. Diabetes mellitus, type 2. 3. Hypokalemia, for correction. 4. Worsening kidney function. We will get Nephrology involved. 5. Benign prostatic hyperplasia. 6. History of coronary artery disease. PLAN: I am going to hold his discharge because of those new findings and potassium replacement requiring. We will get also Accu-Cheks a.c. and at bedtime. Job ID: [id number]
--- NOTE | 2019-03-28 15:53 | PRG ---
DATE OF SERVICE: 03/27/2019 SUBJECTIVE: The patient is seen and examined at the bedside. One of the guards is present during my visit. The patient is quite responsive to female personnel and much less responsive to my personnel according to the nursing. His appetite is fair. OBJECTIVE: VITAL SIGNS: Blood pressure is 149/69, pulse is 55, temperature is 97.6, respiratory rate is 16, O2 saturation is 98% on room air. His blood pressure is fluctuating, early this morning was 183/77. HEENT: His head is atraumatic and normocephalic. Eyes are PERRLA. Sclerae are nonicteric. Oral mucosa is moist. LUNGS: Clear. HEART: S1, S2 normal. ABDOMEN: Soft, nontender. EXTREMITIES: No clubbing or cyanosis. There is 1+ peripheral edema similar bilaterally. NEUROLOGICAL: He is very slow in response, and response is very limited. He is able to move his all 4 extremities, but verbally he is not engaging in any conversation with me. LABORATORY DATA: Glycemia is ranging from 113 to 118. IMPRESSION: 1. Encephalopathy, which is fluctuating of really unclear etiology. The patient was seen by Dr. Acuña, who thinks that he is malingering. 2. Diabetes mellitus type 2. 3. Benign prostatic hyperplasia. 4. History of coronary artery disease. PLAN: Plan is to hold on his discharge because of fluctuating mental status and blood pressure problems. We will try to watch him for additional 24 hours and check his lab work tomorrow morning. Earlier, he was hypotensive. He required some IV fluids and he needs to be watched for additional 24 hours. Job ID: [id number]
[2019-03-28] MEDS: Atorvastatin Calcium 40 MG TAB PO SCH (21:37)
[2019-03-29] MEDS: Acetaminophen 325 MG TAB PO PRN ×2 (01:32→20:55)
[2019-03-29 05:27] LABS: Albumin 2.3 g/dL (3.5-5.0); Anion Gap 11 mmol/L (10-20); BUN (Urea Nitrogen) 40 mg/dL (8.4-25.7); BUN/Creatinine Ratio 11.24; Calc. Creatinine Clearance 33 mL/min (70-130); Calcium 8.2 mg/dL (7.8-10.44); Carbon Dioxide 25 mmol/L (22-29); Chloride 107 mmol/L (98-107); Estimated GFR-MDRD 18; Glucose 83 mg/dL (70-105); Magnesium 2.2 mg/dL (1.6-2.6); Phosphorus 3.7 mg/dL (2.3-4.7); Potassium 3.3 mmol/L (3.5-5.1); Sodium 140 mmol/L (136-145)
[2019-03-29] MEDS: Ferrous Sulfate 325 MG TAB PO SCH (08:36)
[2019-03-29] MEDS: Aspirin 81 mg Enteric Coated Tablet PO SCH (08:37)
[2019-03-29] MEDS: Calcitriol 0.25 MCG CAP PO SCH (08:37)
[2019-03-29] MEDS: glipiZIDE 5 MG TAB PO SCH (08:37)
[2019-03-29] MEDS: NIFEdipine XL 90 MG TAB PO SCH (08:37)
[2019-03-29] MEDS: Carvedilol 6.25 MG TAB PO SCH ×2 (08:37→20:57)
[2019-03-29] MEDS: Tamsulosin HCl 0.4 MG CAP PO SCH (08:37)
[2019-03-29] MEDS: Clopidogrel Bisulfate 75 MG TAB PO SCH (08:37)
[2019-03-29] MEDS: Famotidine 20 MG TAB PO SCH (08:37)
[2019-03-29] MEDS: Furosemide 40 MG TAB PO SCH ×2 (08:37→21:00)
[2019-03-29] MEDS: Finasteride 5 MG TAB PO SCH (08:37)
[2019-03-29] MEDS: HYDROcodone/Acetaminophen 5/325 mg Tablet PO PRN (08:38)
[2019-03-29] MEDS: Heparin 5,000 UNITS/ML VIAL SC SCH ×2 (08:39→21:03)
[2019-03-29] MEDS: NPH, Human Insulin Isophane 300 UNIT/3 ML VIAL SC SCH ×2 (08:39→21:02)
--- NOTE | 2019-03-29 14:46 | PDOC.HOSPP ---
- Subjective Encounter Date: 03/29/19 Encounter Time: 14:44 Subjective: NO COMAPLINS, WITH SHARMA HE COULD NOT URINATE - Objective Vital Signs & Weight: Vital Signs (12 hours) Temp Pulse Pulse Pulse Resp BP BP 03/29/19 11:46 97.7 F 67 20 03/29/19 10:10 80 69 139/69 03/29/19 08:37 70 166/77 H 03/29/19 07:45 97.6 F 70 20 03/29/19 04:00 97.4 F L 61 16 BP BP Pulse Ox 03/29/19 11:46 161/78 H 96 03/29/19 10:10 170/76 H 03/29/19 08:37 03/29/19 07:45 166/77 H 98 03/29/19 04:00 160/76 H 96 Weight Weight 223 lb 1.6 oz I&O: 03/28/19 03/29/19 03/30/19 06:59 06:59 06:59 Intake Total 2110 1240 600 Output Total 1250 3450 1775 Balance 810 -2630 -6293 Result Diagrams: 03/25/19 03:35 03/29/19 04:44 Additional Labs: Accuchecks 03/29/19 03/29/19 03/28/19 10:41 05:42 20:21 POC Glucose 126 H 94 141 H 03/28/19 16:47 POC Glucose 96 Hospitalist ROS - Medication Medications: Active Medications Generic Name Dose Route Start Last Admin Trade Name Freq PRN Reason Stop Dose Admin Acetaminophen 650 mg 03/24/19 22:00 03/29/19 01:32 Tylenol PO 650 mg Q4H PRN Administration Headache/Fever/Mild Pain (1-3) Hydrocodone Bitart/Acetaminophen 1 tab 03/24/19 22:00 03/29/19 08:38 [place] 5/325 PO 1 tab Q4H PRN Administration Moderate Pain (4-6) Aspirin 81 mg 03/27/19 09:00 03/29/19 08:37 Ecotrin PO 81 mg DAILY HAILEE Administration Atorvastatin Calcium 40 mg 03/26/19 21:00 03/28/19 21:37 Lipitor PO 40 mg HS HAILEE Administration Calcitriol 0.25 mcg 03/29/19 09:00 03/29/19 08:37 Rocaltrol PO 0.25 mcg DAILY HAILEE Administration Carvedilol 12.5 mg 03/27/19 21:00 03/29/19 08:37 Coreg PO 12.5 mg BID HAILEE Administration Clonidine 0.1 mg 03/24/19 22:00 03/27/19 06:12 Catapres PO 0.1 mg Q4H PRN Administration SBP GREATER THAN 160 Clopidogrel Bisulfate 75 mg 03/25/19 09:00 03/29/19 08:37 Plavix PO 75 mg DAILY HAILEE Administration Famotidine 20 mg 03/25/19 09:00 03/29/19 08:37 Pepcid PO 20 mg DAILY HAILEE Administration Ferrous Sulfate 325 mg 03/25/19 08:00 03/29/19 08:36 Feosol PO 325 mg QAM-WM HAILEE Administration Finasteride 5 mg 03/27/19 09:00 03/29/19 08:37 Proscar PO 5 mg DAILY HAILEE Administration Furosemide 40 mg 03/28/19 21:00 03/29/19 08:37 Lasix PO 40 mg BID HAILEE Administration Glipizide 5 mg 03/27/19 09:00 03/29/19 08:37 Glucotrol PO 5 mg DAILY [facility] Administration Heparin Sodium (Porcine) 5,000 units 03/25/19 09:00 03/29/19 08:39 Heparin SC 5,000 units BID HAILEE Administration Hydralazine HCl 10 mg 03/24/19 22:00 03/26/19 06:11 Apresoline SLOW IVP 10 mg Q4H PRN Administration SBP > 180 and HR < 70 Insulin Human Lispro 0 units 03/24/19 22:00 03/28/19 11:23 Humalog SC 2 unit .MODERATE SLIDING SC PRN Administration Moderate Correctional Scale Insulin Human NPH 8 unit 03/26/19 21:00 03/28/19 21:40 Humulin N SC 8 unit QPM HAILEE Administration Insulin Human NPH 12 unit 03/27/19 09:00 03/29/19 08:39 Humulin N SC 12 unit QAM HAILEE Administration Isosorbide Mononitrate 60 mg 03/26/19 09:00 03/29/19 08:37 Imdur PO 60 mg DAILY HAILEE Administration Labetalol HCl 20 mg 03/24/19 22:00 03/26/19 04:40 Normodyne SLOW IVP 20 mg Q4H PRN Administration SBP > 180 and HR >/= 70 Lorazepam 1 mg 03/25/19 12:05 03/25/19 14:12 Ativan SLOW IVP 1 mg Q8H PRN Administration Agitation Nifedipine 90 mg 03/26/19 09:00 03/29/19 08:37 Procardia Xl PO 90 mg DAILY HAILEE Administration Senna/Docusate Sodium 2 tab 03/24/19 22:00 03/29/19 14:28 Senokot S PO 2 tab BID PRN Administration Constipation Sodium Chloride 10 ml 03/24/19 22:00 03/26/19 09:32 Flush - Normal Saline IVF 10 ml PRN PRN Administration Saline Flush Tamsulosin HCl 0.4 mg 03/27/19 09:00 03/29/19 08:37 Flomax PO 0.4 mg DAILY HAILEE Administration Zolpidem Tartrate 5 mg 03/24/19 22:00 03/28/19 21:36 Ambien PO 5 mg HSPRN PRN Administration Insomnia - Exam General Appearance: awake alert Eye: PERRL, anicteric sclera ENT: normocephalic atraumatic, no oropharyngeal lesions Neck: supple, symmetric, no JVD, no thyromegaly Heart: RRR, no murmur, no gallops, no rubs Respiratory: CTAB, no wheezes, no rales, no ronchi Gastrointestinal: soft, non-tender, non-distended, normal bowel sounds Neurological: CN's grossly intact, no weakness, no focal deficits Psychiatric: normal affect, normal behavior, A&O x 3 Hosp A/P (1) Acute metabolic encephalopathy Code(s): G93.41 - METABOLIC ENCEPHALOPATHY Status: Acute Plan: MRI wnl, storke work up 2 months ago wnl. Evaluated by neuro, possible malingering (2) Kash-neglect of right side Code(s): R41.4 - NEUROLOGIC NEGLECT SYNDROME Status: Acute Plan: as above (3) Hypokalemia Code(s): E87.6 - HYPOKALEMIA Status: Acute Plan: resolved (4) CKD (chronic kidney disease) stage 4, GFR 15-29 ml/min Code(s): N18.4 - CHRONIC KIDNEY DISEASE, STAGE 4 (SEVERE) Status: Chronic Plan: acute on chronic, creatinine now trending down with decompression of the bladder with Sharma, possible obstructive uropathy with BPH (5) Diabetes mellitus type 2 in obese Code(s): E11.69 - TYPE 2 DIABETES MELLITUS WITH OTHER SPECIFIED COMPLICATION; E66.9 - OBESITY, UNSPECIFIED Status: Chronic Plan: CONTINUE ss INSULIN Diabteic diet (6) Diastolic CHF, chronic Code(s): I50.32 - CHRONIC DIASTOLIC (CONGESTIVE) HEART FAILURE Status: Chronic (7) HLD (hyperlipidemia) Code(s): E78.5 - HYPERLIPIDEMIA, UNSPECIFIED Status: Chronic Plan: statin - Plan sharma catheter, PT/OT, social psychologist
--- NOTE | 2019-03-29 18:42 | PRG ---
DATE OF SERVICE: 03/29/2019 SUBJECTIVE: The patient was seen and examined, noted with the following vital signs. OBJECTIVE: VITAL SIGNS: Afebrile, temperature 97.6, pulse 72, respiratory rate 20, O2 saturation 95%, and blood pressure 113/63. HEENT: Unremarkable. CARDIOVASCULAR: First and second sounds were heard. RESPIRATORY: Clear to auscultation. DIGESTIVE: Revealed a benign abdomen. Positive bowel sounds. EXTREMITIES: No peripheral edema. SKIN: No new gross rash. LYMPHATICS: No peripheral lymphadenopathy. IMPRESSION: 1. Acute on chronic kidney disease. 2. Mild hypokalemia. PLAN: 1. Continue current renal supportive measures. 2. Replete potassium. 3. Further management to be dependent on the clinical course. Job ID: [id number]
[2019-03-29] MEDS: Zolpidem Tartrate 5 MG TAB PO PRN (20:59)
[2019-03-29] MEDS: Atorvastatin Calcium 40 MG TAB PO SCH (21:00)
[2019-03-30] MEDS ORDERED: Potassium Chloride 20 MEQ TAB PO SCH (00:45)
[2019-03-30 06:23] LABS: Albumin 2.7 g/dL (3.5-5.0); Anion Gap 12 mmol/L (10-20); BUN (Urea Nitrogen) 41 mg/dL (8.4-25.7); BUN/Creatinine Ratio 10.96; Calc. Creatinine Clearance 31 mL/min (70-130); Calcium 8.7 mg/dL (7.8-10.44); Carbon Dioxide 28 mmol/L (22-29); Chloride 101 mmol/L (98-107); Estimated GFR-MDRD 17; Glucose 115 mg/dL (70-105); Phosphorus 3.6 mg/dL (2.3-4.7); Potassium 3.6 mmol/L (3.5-5.1); Sodium 137 mmol/L (136-145)
[2019-03-30] MEDS: Tamsulosin HCl 0.4 MG CAP PO SCH (08:52)
[2019-03-30] MEDS: NIFEdipine XL 90 MG TAB PO SCH (08:53)
[2019-03-30] MEDS: Famotidine 20 MG TAB PO SCH (08:53)
[2019-03-30] MEDS: Clopidogrel Bisulfate 75 MG TAB PO SCH (08:54)
[2019-03-30] MEDS: Calcitriol 0.25 MCG CAP PO SCH (08:54)
[2019-03-30] MEDS: Furosemide 40 MG TAB PO SCH (08:54)
[2019-03-30] MEDS: Carvedilol 6.25 MG TAB PO SCH ×2 (08:55→21:14)
[2019-03-30] MEDS: Ferrous Sulfate 325 MG TAB PO SCH (08:55)
[2019-03-30] MEDS: glipiZIDE 5 MG TAB PO SCH (08:55)
[2019-03-30] MEDS: Aspirin 81 mg Enteric Coated Tablet PO SCH (08:55)
[2019-03-30] MEDS: Finasteride 5 MG TAB PO SCH (08:55)
[2019-03-30] MEDS: Heparin 5,000 UNITS/ML VIAL SC SCH ×2 (08:56→21:14)
[2019-03-30] MEDS: NPH, Human Insulin Isophane 300 UNIT/3 ML VIAL SC SCH ×2 (08:57→21:15)
[2019-03-30] MEDS: HumaLOG 300 UNITS/3 ML VIAL SC PRN (13:32)
--- NOTE | 2019-03-30 14:08 | PDOC.HOSPP ---
- Subjective Encounter Date: 03/30/19 Encounter Time: 14:06 Subjective: doing well, not urinating completely, requiring straight cath - Objective Vital Signs & Weight: Vital Signs (12 hours) Temp Pulse Resp BP BP Pulse Ox 03/30/19 11:52 98.2 F 63 16 150/70 H 97 03/30/19 10:16 78 149/71 H 03/30/19 08:55 163/77 H 03/30/19 08:53 72 163/77 H 03/30/19 07:42 97.6 F 72 20 163/77 H 97 03/30/19 04:00 97.9 F 66 16 129/59 L 94 L Weight Weight 223 lb 1.6 oz I&O: 03/29/19 03/30/19 03/31/19 06:59 06:59 06:59 Intake Total 1240 1480 Output Total 3450 3761 275 Balance -2210 -3279 -275 Result Diagrams: 03/25/19 03:35 03/30/19 05:53 Additional Labs: Accuchecks 03/30/19 03/30/19 03/29/19 10:56 06:00 20:42 POC Glucose 351 H 125 H 189 H 03/29/19 16:45 POC Glucose 95 Hospitalist ROS - Medication Medications: Active Medications Generic Name Dose Route Start Last Admin Trade Name Freq PRN Reason Stop Dose Admin Acetaminophen 650 mg 03/24/19 22:00 03/29/19 20:55 Tylenol PO 650 mg Q4H PRN Administration Headache/Fever/Mild Pain (1-3) Hydrocodone Bitart/Acetaminophen 1 tab 03/24/19 22:00 03/29/19 08:38 [place] 5/325 PO 1 tab Q4H PRN Administration Moderate Pain (4-6) Aspirin 81 mg 03/27/19 09:00 03/30/19 08:55 Ecotrin PO 81 mg DAILY HAILEE Administration Atorvastatin Calcium 40 mg 03/26/19 21:00 03/29/19 21:00 Lipitor PO 40 mg HS HAILEE Administration Calcitriol 0.25 mcg 03/29/19 09:00 03/30/19 08:54 Rocaltrol PO 0.25 mcg DAILY HAILEE Administration Carvedilol 12.5 mg 03/27/19 21:00 03/30/19 08:55 Coreg PO 12.5 mg BID HAILEE Administration Clonidine 0.1 mg 03/24/19 22:00 03/27/19 06:12 Catapres PO 0.1 mg Q4H PRN Administration SBP GREATER THAN 160 Clopidogrel Bisulfate 75 mg 03/25/19 09:00 03/30/19 08:54 Plavix PO 75 mg DAILY HAILEE Administration Famotidine 20 mg 03/25/19 09:00 03/30/19 08:53 Pepcid PO 20 mg DAILY HAILEE Administration Ferrous Sulfate 325 mg 03/25/19 08:00 03/30/19 08:55 Feosol PO 325 mg QAM-WM HAILEE Administration Finasteride 5 mg 03/27/19 09:00 03/30/19 08:55 Proscar PO 5 mg DAILY HAILEE Administration Furosemide 40 mg 03/28/19 21:00 03/30/19 08:54 Lasix PO 40 mg BID HAILEE Administration Glipizide 5 mg 03/27/19 09:00 03/30/19 08:55 Glucotrol PO 5 mg DAILY HAILEE Administration Heparin Sodium (Porcine) 5,000 units 03/25/19 09:00 03/30/19 08:56 Heparin SC 5,000 units BID HAILEE Administration Hydralazine HCl 10 mg 03/24/19 22:00 03/26/19 06:11 Apresoline SLOW IVP 10 mg Q4H PRN Administration SBP > 180 and HR < 70 Insulin Human Lispro 0 units 03/24/19 22:00 03/30/19 13:32 Humalog SC 10 unit .MODERATE SLIDING SC PRN Administration Moderate Correctional Scale Insulin Human NPH 8 unit 03/26/19 21:00 03/29/19 21:02 Humulin N SC 8 unit QPM HAILEE Administration Insulin Human NPH 12 unit 03/27/19 09:00 03/30/19 08:57 Humulin N SC 12 unit QAM HAILEE Administration Isosorbide Mononitrate 60 mg 03/26/19 09:00 03/30/19 08:54 Imdur PO 60 mg DAILY HAILEE Administration Labetalol HCl 20 mg 03/24/19 22:00 03/26/19 04:40 Normodyne SLOW IVP 20 mg Q4H PRN Administration SBP > 180 and HR >/= 70 Lorazepam 1 mg 03/25/19 12:05 03/25/19 14:12 Ativan SLOW IVP 1 mg Q8H PRN Administration Agitation Nifedipine 90 mg 03/26/19 09:00 03/30/19 08:53 Procardia Xl PO 90 mg DAILY HAILEE Administration Senna/Docusate Sodium 2 tab 03/24/19 22:00 03/29/19 14:28 Senokot S PO 2 tab BID PRN Administration Constipation Sodium Chloride 10 ml 03/24/19 22:00 03/26/19 09:32 Flush - Normal Saline IVF 10 ml PRN PRN Administration Saline Flush Tamsulosin HCl 0.4 mg 03/27/19 09:00 03/30/19 08:52 Flomax PO 0.4 mg DAILY HAILEE Administration Zolpidem Tartrate 5 mg 03/24/19 22:00 03/29/19 20:59 Ambien PO 5 mg HSPRN PRN Administration Insomnia - Exam Eye: PERRL, anicteric sclera ENT: normocephalic atraumatic, no oropharyngeal lesions Neck: supple, symmetric, no JVD, no thyromegaly Heart: RRR, no murmur, no gallops, no rubs Respiratory: CTAB, no wheezes, no rales, no ronchi Gastrointestinal: soft, non-tender, non-distended, normal bowel sounds Extremities: no cyanosis, no clubbing, no edema Skin: normal turgor, no lesions, no rashes Neurological: CN's grossly intact, normal sensation to touch, no weakness, no focal deficits Musculoskeletal: normal tone, normal strength, no muscle wasting Psychiatric: normal affect, normal behavior, A&O x 3 Hosp A/P (1) Acute metabolic encephalopathy Code(s): G93.41 - METABOLIC ENCEPHALOPATHY Status: Acute (2) Kash-neglect of right side Code(s): R41.4 - NEUROLOGIC NEGLECT SYNDROME Status: Acute (3) Hypokalemia Code(s): E87.6 - HYPOKALEMIA Status: Acute (4) CKD (chronic kidney disease) stage 4, GFR 15-29 ml/min Code(s): N18.4 - CHRONIC KIDNEY DISEASE, STAGE 4 (SEVERE) Status: Chronic (5) Diabetes mellitus type 2 in obese Code(s): E11.69 - TYPE 2 DIABETES MELLITUS WITH OTHER SPECIFIED COMPLICATION; E66.9 - OBESITY, UNSPECIFIED Status: Chronic (6) Diastolic CHF, chronic Code(s): I50.32 - CHRONIC DIASTOLIC (CONGESTIVE) HEART FAILURE Status: Chronic (7) HLD (hyperlipidemia) Code(s): E78.5 - HYPERLIPIDEMIA, UNSPECIFIED Status: Chronic - Plan * Right sided neglect- and altered mental status- He has been evaluated by Neurology, and it is suspected that he is malingering. I would agree * MRI is negative, and he had a similar work-up noted in review of his records about 2 months ago * HTN- blood pressure is better now * DM: Continue Insulin SS with accuchecks and Glipizide * Anemia: Anemia of chronic disease, continue Iron supplements * BPH: On flomax, difficulty urinating requiring straight cath. Urology consulted * FEDER[place] over CKD: Continued diuresis and obstructive uropathy, creatinine is slowly trending down. Will decrease Lasix and continue straight cath * [facility]- likely to a medical unit once urinary obstruction is addressed
--- NOTE | 2019-03-30 14:33 | CON ---
DATE OF CONSULTATION: CONSULTING PHYSICIAN: Delphine Galdamez MD. REQUESTING PHYSICIAN: REASON FOR CONSULTATION: Advanced chronic kidney disease. IMPRESSION: 1. Advanced chronic kidney disease, stage 4, likely in the context of diabetic nephropathy plus or minus hypertensive nephrosclerosis. 2. Hypokalemia. 3. Hypertensive urgency, improved. 4. Proteinuria, proteinuria. 5. Secondary hyperparathyroidism. PLAN: 1. Urine creatinine and urine protein to estimate degree of proteinuria in this patient. 2. Good blood pressure control recommended. 3. We will start this patient on calcitriol. 4. Renally dose all medications and avoid nephrotoxic agents. 5. Further management will be dependent on the clinical course. We will double of the Lasix to twice a day. HISTORY OF PRESENT ILLNESS: History is that of a 58-year-old gentleman, who presented here from the nursing home with mental status change and severely elevated blood pressure. The patient with a baseline chronic kidney disease, stage 4. The patient on clinical evaluation is noted to have evidence of secondary hyperparathyroidism. The patient was sent over from the nursing home because of elevated blood pressure with mental status change. The patient noted with pre-advanced kidney disease and as a result of that, decision has been taken to involve Renal in the management of this case. PAST MEDICAL HISTORY: Significant for diabetes mellitus type 2, dyslipidemia, asthma, dementia, stage 4 chronic kidney disease, hypertension, and chronic diastolic heart failure. REVIEW OF SYSTEMS: As documented in the body of the history. Otherwise, the rest of the system was evaluated and found not to be significantly related to present illness. SOCIAL HISTORY: The patient is currently incarcerated. FAMILY HISTORY: No family history of kidney disease. PHYSICAL EXAMINATION: GENERAL: The patient was found not to be in any obvious distress. VITAL SIGNS: Noted with the following vital signs afebrile, temperature 97.9, pulse is , respiratory rate 18, O2 saturations 97%, and blood pressure HEENT: Unremarkable. CARDIOVASCULAR: First and second heart sounds are heard. RESPIRATORY SYSTEM: Clear to auscultation. DIGESTIVE SYSTEM: Revealed a benign abdomen with positive bowel sounds. EXTREMITIES: No peripheral edema. SKIN EXAMINATION: No new gross rash. LYMPHATICS: No peripheral lymphadenopathy. SUMMARY: A 58-year-old gentleman, who presented here with mental status change in the context of elevated blood pressure, who does have stage 4 chronic kidney disease. Thank you for this consultation. We will follow with you. Job ID: [id number]
--- NOTE | 2019-03-30 20:37 | PRG ---
DATE OF SERVICE: 03/30/2019 SUBJECTIVE: The patient is noted with the following vital signs. OBJECTIVE: VITAL SIGNS: Afebrile, temperature 97.9, pulse 72, respiratory rate of 15, O2 saturation 97%, blood pressure 140/53. HEENT: Unremarkable. CARDIOVASCULAR SYSTEM: First and second heart sounds were heard. RESPIRATORY SYSTEM: Clear to auscultation. DIGESTIVE SYSTEM: Revealed a benign abdomen. EXTREMITIES: No peripheral edema. SKIN: No new gross rash. LYMPHATICS: No peripheral lymphadenopathy. LABORATORY DATA: Laboratory investigation reviewed. Creatinine up to 3.74, BUN of 41. IMPRESSION: 1. Advanced chronic kidney disease, stage 4. 2. Acute on chronic kidney disease. PLAN: 1. We will continue with current renal supportive measures. 2. No emergent indication for renal replacement therapy (hemodialysis). Job ID: [id number]
[2019-03-30] MEDS: Atorvastatin Calcium 40 MG TAB PO SCH (21:17)
--- NOTE | 2019-03-30 21:24 | CON ---
DATE OF CONSULTATION: 03/30/2019 REASON FOR CONSULTATION: Voiding difficulties. HISTORY OF PRESENT ILLNESS: Mr. Murphy is a 58-year-old gentleman who was admitted to the hospital on 03/24/2019. He is incarcerated and was noted to have altered mental status and was brought in for evaluation for the altered mental status. Since his admission, apparently stroke has been ruled out. He does have rather significant white matter disease on scanning of the brain. After a prolonged period without urinating, bladder scanning was performed, it was demonstrated to be high, and the patient's voiding ability was questioned. The patient himself denies any real voiding problems, although his history cannot be considered reliable. He has voided as much as 300 mL, but has had residuals despite voiding 400-500 mL. He has chronic renal insufficiency and his current creatinine is 3.7, despite being managed with intermittent catheterization. His creatinine when he was originally seen here in December 2018 was 2.7. Renal ultrasound was performed in January 2019 for evaluation of his renal insufficiency and it demonstrated no hydronephrosis. It is thought that his renal insufficiency is not obstructive in nature, but medical in nature. The patient denies hematuria, dysuria. As mentioned above, his history is not reliable. PAST MEDICAL HISTORY: Coronary artery disease, dementia, chronic renal insufficiency, hypertension, type 2 diabetes. PRIOR SURGICAL HISTORY: Cardiac catheterization in January here at [facility]. SOCIAL HISTORY: Incarcerated. Nonsmoker, nondrinker. ALLERGIES: NO KNOWN DRUG ALLERGIES. MEDICATIONS: Prior to admission, 1. Aspirin. 2. Plavix. 3. Glipizide. 4. Insulin. 5. Nitroglycerin. 6. Lipitor. 7. Coreg. 8. Clonidine. 9. Proscar. 10. Lasix. 11. Imdur. 12. Procardia. 13. Flomax. FAMILY HISTORY: Unknown. PHYSICAL EXAMINATION: GENERAL: He is awake and alert. He is in no distress. HEENT: Normocephalic, atraumatic. NECK: Supple without masses. CHEST: Clear. ABDOMEN: Soft, nontender. EXTREMITIES: No edema. Hands are cuffed. LABORATORY DATA: Creatinine on admission 3.12. Urinalysis, no evidence of infection. IMPRESSION: Mr. Murphy is a 58-year-old, incarcerated inmate who is a poor historian. He has chronic renal insufficiency and renal ultrasound performed in January 2019 demonstrated no hydronephrosis. His urinary tract has been managed with intermittent catheterization for the last 24 hours, as it was noted he did not void during a shift. Bladder scanning has been performed and is not correlating with his postvoid residuals and therefore is unreliable. RECOMMENDATIONS: 1. Stop intermittent catheterization. 2. Have the patient stand to void. 3. Catheterize only if no output in 12 hours or if patient requests for suprapubic discomfort. Job ID: [id number]
[2019-03-31 05:27] LABS: Albumin 2.5 g/dL (3.5-5.0); Anion Gap 10 mmol/L (10-20); BUN (Urea Nitrogen) 40 mg/dL (8.4-25.7); BUN/Creatinine Ratio 10.93; Calc. Creatinine Clearance 32 mL/min (70-130); Calcium 8.9 mg/dL (7.8-10.44); Carbon Dioxide 27 mmol/L (22-29); Chloride 105 mmol/L (98-107); Estimated GFR-MDRD 17; Glucose 76 mg/dL (70-105); Phosphorus 3.7 mg/dL (2.3-4.7); Potassium 3.5 mmol/L (3.5-5.1); Sodium 138 mmol/L (136-145)
[2019-03-31] MEDS: Finasteride 5 MG TAB PO SCH (09:10)
[2019-03-31] MEDS: Clopidogrel Bisulfate 75 MG TAB PO SCH (09:11)
[2019-03-31] MEDS: Tamsulosin HCl 0.4 MG CAP PO SCH (09:11)
[2019-03-31] MEDS: Ferrous Sulfate 325 MG TAB PO SCH (09:11)
[2019-03-31] MEDS: NIFEdipine XL 90 MG TAB PO SCH (09:11)
[2019-03-31] MEDS: Aspirin 81 mg Enteric Coated Tablet PO SCH (09:11)
[2019-03-31] MEDS: Heparin 5,000 UNITS/ML VIAL SC SCH ×2 (09:12→20:46)
[2019-03-31] MEDS: Furosemide 20 MG TAB PO SCH (09:12)
[2019-03-31] MEDS: Carvedilol 6.25 MG TAB PO SCH ×2 (09:12→20:46)
[2019-03-31] MEDS: Calcitriol 0.25 MCG CAP PO SCH (09:12)
[2019-03-31] MEDS: Famotidine 20 MG TAB PO SCH (09:12)
[2019-03-31] MEDS: glipiZIDE 5 MG TAB PO SCH (09:12)
[2019-03-31] MEDS: NPH, Human Insulin Isophane 300 UNIT/3 ML VIAL SC SCH ×2 (09:13→20:46)
--- NOTE | 2019-03-31 12:00 | DIS ---
DATE OF ADMISSION: 03/24/2019 DATE OF DISCHARGE: 03/27/2019 ADDENDUM: Mr. Murphy [facility]. The discharge was postponed because of some blood pressure issues, but his blood pressure is down to 140s. He is going to be discharged with the same orders and medications, which were ordered yesterday. Job ID: [id number]
--- NOTE | 2019-03-31 12:38 | PDOC.HOSPP ---
- Subjective Encounter Date: 03/31/19 Encounter Time: 12:34 Subjective: Doing well, urinating well when standing - Objective Vital Signs & Weight: Vital Signs (12 hours) Temp Pulse Resp BP BP Pulse Ox 03/31/19 11:27 98.3 F 70 16 178/87 H 98 03/31/19 09:20 98 03/31/19 09:12 189/87 H 03/31/19 09:11 79 189/87 H 03/31/19 07:49 97.6 F 76 18 189/87 H 98 03/31/19 04:00 97.5 F L 74 18 174/85 H 97 Weight Weight 223 lb 1.6 oz I&O: 03/30/19 03/31/19 04/01/19 06:59 06:59 06:59 Intake Total 1480 423 300 Output Total 3539 1105 600 Balance -3279 -625 -300 Result Diagrams: 03/25/19 03:35 03/31/19 04:49 Additional Labs: Accuchecks 03/31/19 03/31/19 03/31/19 11:00 09:02 05:51 POC Glucose 144 H 146 H 81 03/30/19 03/30/19 03/30/19 20:16 18:04 16:55 POC Glucose 178 H 97 56 L* Hospitalist ROS - Medication Medications: Active Medications Generic Name Dose Route Start Last Admin Trade Name Freq PRN Reason Stop Dose Admin Acetaminophen 650 mg 03/24/19 22:00 03/29/19 20:55 Tylenol PO 650 mg Q4H PRN Administration Headache/Fever/Mild Pain (1-3) Hydrocodone Bitart/Acetaminophen 1 tab 03/24/19 22:00 03/29/19 08:38 [place] 5/325 PO 1 tab Q4H PRN Administration Moderate Pain (4-6) Aspirin 81 mg 03/27/19 09:00 03/31/19 09:11 Ecotrin PO 81 mg DAILY HAILEE Administration Atorvastatin Calcium 40 mg 03/26/19 21:00 03/30/19 21:17 Lipitor PO 40 mg HS HAILEE Administration Calcitriol 0.25 mcg 03/29/19 09:00 03/31/19 09:12 Rocaltrol PO 0.25 mcg DAILY HAILEE Administration Carvedilol 12.5 mg 03/27/19 21:00 03/31/19 09:12 Coreg PO 12.5 mg BID HAILEE Administration Clonidine 0.1 mg 03/24/19 22:00 03/27/19 06:12 Catapres PO 0.1 mg Q4H PRN Administration SBP GREATER THAN 160 Clopidogrel Bisulfate 75 mg 03/25/19 09:00 03/31/19 09:11 Plavix PO 75 mg DAILY HAILEE Administration Famotidine 20 mg 03/25/19 09:00 03/31/19 09:12 Pepcid PO 20 mg DAILY HAILEE Administration Ferrous Sulfate 325 mg 03/25/19 08:00 03/31/19 09:11 Feosol PO 325 mg QAM-WM HAILEE Administration Finasteride 5 mg 03/27/19 09:00 03/31/19 09:10 Proscar PO 5 mg DAILY HAILEE Administration Furosemide 20 mg 03/31/19 09:00 03/31/19 09:12 Lasix PO 20 mg DAILY HAILEE Administration Glipizide 5 mg 03/27/19 09:00 03/31/19 09:12 Glucotrol PO 5 mg DAILY HAILEE Administration Heparin Sodium (Porcine) 5,000 units 03/25/19 09:00 03/31/19 09:12 Heparin SC 5,000 units BID HAILEE Administration Hydralazine HCl 10 mg 03/24/19 22:00 03/26/19 06:11 Apresoline SLOW IVP 10 mg Q4H PRN Administration SBP > 180 and HR < 70 Insulin Human Lispro 0 units 03/24/19 22:00 03/30/19 13:32 Humalog SC 10 unit .MODERATE SLIDING SC PRN Administration Moderate Correctional Scale Insulin Human NPH 8 unit 03/26/19 21:00 03/30/19 21:15 Humulin N SC 8 unit QPM HAILEE Administration Insulin Human NPH 12 unit 03/27/19 09:00 03/31/19 09:13 Humulin N SC 12 unit QAM HAILEE Administration Isosorbide Mononitrate 60 mg 03/26/19 09:00 03/31/19 09:10 Imdur PO 60 mg DAILY HAILEE Administration Labetalol HCl 20 mg 03/24/19 22:00 03/26/19 04:40 Normodyne SLOW IVP 20 mg Q4H PRN Administration SBP > 180 and HR >/= 70 Lorazepam 1 mg 03/25/19 12:05 03/25/19 14:12 Ativan SLOW IVP 1 mg Q8H PRN Administration Agitation Nifedipine 90 mg 03/26/19 09:00 03/31/19 09:11 Procardia Xl PO 90 mg DAILY HAILEE Administration Senna/Docusate Sodium 2 tab 03/24/19 22:00 03/29/19 14:28 Senokot S PO 2 tab BID PRN Administration Constipation Sodium Chloride 10 ml 03/24/19 22:00 03/26/19 09:32 Flush - Normal Saline IVF 10 ml PRN PRN Administration Saline Flush Tamsulosin HCl 0.4 mg 03/27/19 09:00 03/31/19 09:11 Flomax PO 0.4 mg DAILY HAILEE Administration Zolpidem Tartrate 5 mg 03/24/19 22:00 03/29/19 20:59 Ambien PO 5 mg HSPRN PRN Administration Insomnia - Exam General Appearance: awake alert Eye: PERRL, anicteric sclera ENT: normocephalic atraumatic, no oropharyngeal lesions Neck: supple, symmetric, no JVD Heart: RRR, no murmur, no gallops, no rubs Respiratory: CTAB, no wheezes, no rales, no ronchi Gastrointestinal: soft, non-tender, non-distended, normal bowel sounds Extremities: no cyanosis, no clubbing, no edema Skin: normal turgor, no lesions, no rashes Neurological: CN's grossly intact, normal sensation to touch, no weakness, no focal deficits Psychiatric: normal affect, normal behavior, A&O x 3 Hosp A/P (1) Acute metabolic encephalopathy Code(s): G93.41 - METABOLIC ENCEPHALOPATHY Status: Resolved (2) Kash-neglect of right side Code(s): R41.4 - NEUROLOGIC NEGLECT SYNDROME Status: Resolved (3) Hypokalemia Code(s): E87.6 - HYPOKALEMIA Status: Resolved (4) CKD (chronic kidney disease) stage 4, GFR 15-29 ml/min Code(s): N18.4 - CHRONIC KIDNEY DISEASE, STAGE 4 (SEVERE) Status: Chronic (5) Diabetes mellitus type 2 in obese Code(s): E11.69 - TYPE 2 DIABETES MELLITUS WITH OTHER SPECIFIED COMPLICATION; E66.9 - OBESITY, UNSPECIFIED Status: Chronic (6) Diastolic CHF, chronic Code(s): I50.32 - CHRONIC DIASTOLIC (CONGESTIVE) HEART FAILURE Status: Chronic (7) HLD (hyperlipidemia) Code(s): E78.5 - HYPERLIPIDEMIA, UNSPECIFIED Status: Chronic - Plan * Right sided neglect- and altered mental status- He has been evaluated by Neurology, and it is suspected that he is malingering. Resolved now * MRI is negative, and he had a similar work-up noted in review of his records about 2 months ago * HTN- blood pressure is better now * DM: Continue Insulin SS with accuchecks and Glipizide * Anemia: Anemia of chronic disease, continue Iron supplements * BPH: On flomax, difficulty urinating requiring straight cath. Urology consulted. As per Urology recommendation patient was made to stand when urinating and this is helping him to urinate better. No more straight cath required (he is shackles) * FEDERICO over CKD: Continued diuresis creatinine is slowly trending down. Will decrease Lasix. * [facility]. SW working on get a bed [facility]. * If PT thinks he can walk to bathroom, can be independent he can be discharged back to half-way
[2019-03-31] MEDS: Atorvastatin Calcium 40 MG TAB PO SCH (20:55)
[2019-04-01] MEDS: Acetaminophen 325 MG TAB PO PRN (11:12)
[2019-04-01] MEDS: Heparin 5,000 UNITS/ML VIAL SC SCH ×2 (11:13→20:40)
[2019-04-01] MEDS: Tamsulosin HCl 0.4 MG CAP PO SCH (11:14)
[2019-04-01] MEDS: Calcitriol 0.25 MCG CAP PO SCH (11:14)
[2019-04-01] MEDS: Ferrous Sulfate 325 MG TAB PO SCH (11:14)
[2019-04-01] MEDS: Finasteride 5 MG TAB PO SCH (11:14)
[2019-04-01] MEDS: Furosemide 20 MG TAB PO SCH (11:14)
[2019-04-01] MEDS: Famotidine 20 MG TAB PO SCH (11:15)
[2019-04-01] MEDS: glipiZIDE 5 MG TAB PO SCH (11:15)
[2019-04-01] MEDS: Clopidogrel Bisulfate 75 MG TAB PO SCH (11:15)
[2019-04-01] MEDS: Aspirin 81 mg Enteric Coated Tablet PO SCH (11:15)
[2019-04-01] MEDS: NIFEdipine XL 90 MG TAB PO SCH (11:15)
[2019-04-01] MEDS: Carvedilol 6.25 MG TAB PO SCH ×2 (11:16→20:40)
[2019-04-01] MEDS: NPH, Human Insulin Isophane 300 UNIT/3 ML VIAL SC SCH ×2 (11:16→20:51)
[2019-04-01] MEDS: HumaLOG 300 UNITS/3 ML VIAL SC PRN (11:31)
--- NOTE | 2019-04-01 16:03 | PDOC.HOSPP ---
- Subjective Encounter Date: 04/01/19 Encounter Time: 16:00 Subjective: Labile BP, running a bit low this afternoon; eating/drinking well; some mild nausea this afternoon, no emesis. Awaiting [facility] bed. - Objective Vital Signs & Weight: Vital Signs (12 hours) Temp Pulse Pulse Pulse Resp BP BP 04/01/19 16:00 97.2 F L 58 L 16 04/01/19 13:50 69 68 123/67 04/01/19 12:00 97.7 F 83 16 04/01/19 11:16 170/78 H 04/01/19 11:15 74 170/78 H 04/01/19 08:48 98.2 F 73 20 BP BP BP Pulse Ox 04/01/19 16:00 85/48 L 96 04/01/19 13:50 119/59 L 04/01/19 12:00 170/78 H 99 04/01/19 11:16 04/01/19 11:15 04/01/19 08:48 166/78 H 97 Weight Weight 198 lb 12.8 oz I&O: 03/31/19 04/01/19 04/02/19 06:59 06:59 06:59 Intake Total 804 676 8819 Output Total 1105 0198 660 Balance -447 -904 115 Result Diagrams: 03/25/19 03:35 03/31/19 04:49 Additional Labs: Accuchecks 04/01/19 04/01/19 03/31/19 10:55 06:32 20:10 POC Glucose 197 H 106 131 H 03/31/19 16:58 POC Glucose 83 Hospitalist ROS - Medication Medications: Active Medications Generic Name Dose Route Start Last Admin Trade Name Freq PRN Reason Stop Dose Admin Acetaminophen 650 mg 03/24/19 22:00 04/01/19 11:12 Tylenol PO 650 mg Q4H PRN Administration Headache/Fever/Mild Pain (1-3) Hydrocodone Bitart/Acetaminophen 1 tab 03/24/19 22:00 03/29/19 08:38 [place] 5/325 PO 1 tab Q4H PRN Administration Moderate Pain (4-6) Aspirin 81 mg 03/27/19 09:00 04/01/19 11:15 Ecotrin PO 81 mg DAILY HAILEE Administration Atorvastatin Calcium 40 mg 03/26/19 21:00 03/31/19 20:55 Lipitor PO 40 mg HS HAILEE Administration Calcitriol 0.25 mcg 03/29/19 09:00 04/01/19 11:14 Rocaltrol PO 0.25 mcg DAILY HAILEE Administration Carvedilol 12.5 mg 03/27/19 21:00 04/01/19 11:16 Coreg PO 12.5 mg BID HAILEE Administration Clonidine 0.1 mg 03/24/19 22:00 03/27/19 06:12 Catapres PO 0.1 mg Q4H PRN Administration SBP GREATER THAN 160 Clopidogrel Bisulfate 75 mg 03/25/19 09:00 04/01/19 11:15 Plavix PO 75 mg DAILY HAILEE Administration Famotidine 20 mg 03/25/19 09:00 04/01/19 11:15 Pepcid PO 20 mg DAILY HAILEE Administration Ferrous Sulfate 325 mg 03/25/19 08:00 04/01/19 11:14 Feosol PO 325 mg QAM-WM HAILEE Administration Finasteride 5 mg 03/27/19 09:00 04/01/19 11:14 Proscar PO 5 mg DAILY HAILEE Administration Furosemide 20 mg 03/31/19 09:00 04/01/19 11:14 Lasix PO 20 mg DAILY HAILEE Administration Glipizide 5 mg 03/27/19 09:00 04/01/19 11:15 Glucotrol PO 5 mg DAILY HAILEE Administration Heparin Sodium (Porcine) 5,000 units 03/25/19 09:00 04/01/19 11:13 Heparin SC 5,000 units BID HAILEE Administration Hydralazine HCl 10 mg 03/24/19 22:00 03/26/19 06:11 Apresoline SLOW IVP 10 mg Q4H PRN Administration SBP > 180 and HR < 70 Insulin Human Lispro 0 units 03/24/19 22:00 04/01/19 11:31 Humalog SC 2 unit .MODERATE SLIDING SC PRN Administration Moderate Correctional Scale Insulin Human NPH 8 unit 03/26/19 21:00 03/31/19 20:46 Humulin N SC 8 unit QPM HAILEE Administration Insulin Human NPH 12 unit 03/27/19 09:00 04/01/19 11:16 Humulin N SC 12 unit QAM HAILEE Administration Isosorbide Mononitrate 60 mg 03/26/19 09:00 04/01/19 11:14 Imdur PO 60 mg DAILY HAILEE Administration Labetalol HCl 20 mg 03/24/19 22:00 03/26/19 04:40 Normodyne SLOW IVP 20 mg Q4H PRN Administration SBP > 180 and HR >/= 70 Lorazepam 1 mg 03/25/19 12:05 03/25/19 14:12 Ativan SLOW IVP 1 mg Q8H PRN Administration Agitation Nifedipine 90 mg 03/26/19 09:00 04/01/19 11:15 Procardia Xl PO 90 mg DAILY HAILEE Administration Senna/Docusate Sodium 2 tab 03/24/19 22:00 03/29/19 14:28 Senokot S PO 2 tab BID PRN Administration Constipation Sodium Chloride 10 ml 03/24/19 22:00 03/26/19 09:32 Flush - Normal Saline IVF 10 ml PRN PRN Administration Saline Flush Tamsulosin HCl 0.4 mg 03/27/19 09:00 04/01/19 11:14 Flomax PO 0.4 mg DAILY HAILEE Administration Zolpidem Tartrate 5 mg 03/24/19 22:00 03/29/19 20:59 Ambien PO 5 mg HSPRN PRN Administration Insomnia - Exam General Appearance: awake alert Eye: PERRL ENT: moist mucosa Neck: supple, symmetric, no JVD Heart: RRR Respiratory: CTAB Gastrointestinal: soft, non-tender, non-distended Gastrointestinal - other findings: thin Extremities: no edema Extremeties - other findings: shackles in place Skin: no rashes Neurological: no new deficit Psychiatric: A&O x 3 Hosp A/P (1) Kash-neglect of right side Code(s): R41.4 - NEUROLOGIC NEGLECT SYNDROME Status: Resolved (2) CKD (chronic kidney disease) stage 4, GFR 15-29 ml/min Code(s): N18.4 - CHRONIC KIDNEY DISEASE, STAGE 4 (SEVERE) Status: Chronic (3) Diabetes mellitus type 2 in obese Code(s): E11.69 - TYPE 2 DIABETES MELLITUS WITH OTHER SPECIFIED COMPLICATION; E66.9 - OBESITY, UNSPECIFIED Status: Chronic (4) Diastolic CHF, chronic Code(s): I50.32 - CHRONIC DIASTOLIC (CONGESTIVE) HEART FAILURE Status: Chronic (5) HLD (hyperlipidemia) Code(s): E78.5 - HYPERLIPIDEMIA, UNSPECIFIED Status: Chronic (6) Acute metabolic encephalopathy Code(s): G93.41 - METABOLIC ENCEPHALOPATHY Status: Resolved (7) Hypokalemia Code(s): E87.6 - HYPOKALEMIA Status: Resolved - Plan Neuro - Right sided neglect- and altered mental status; MRI negative; Neurology -->suspected malingering Cards - Labile HTN- monitor blood pressure; no further titration Endo - DM- Continue Insulin SS with accuchecks and Glipizide Heme -Anemia of chronic disease, continue Iron supplements - BPH: On flomax, stand to void CKD - Continued diuresis creatinine; maintenence Lasix Awaiting [facility] bed
[2019-04-01] MEDS: Atorvastatin Calcium 40 MG TAB PO SCH (20:40)
[2019-04-01] MEDS: Zolpidem Tartrate 5 MG TAB PO PRN (21:01)
--- NOTE | 2019-04-01 21:39 | PRG ---
DATE OF SERVICE: SUBJECTIVE: The patient is noted with the following vital signs. OBJECTIVE: VITAL SIGNS: Afebrile, temperature of 97.2, pulse of 58, respiratory rate of 16, O2 saturation of 96%, and blood pressure of 122/67. HEENT: Unremarkable. CARDIOVASCULAR: First and second heart sounds were heard. RESPIRATORY: Clear to auscultation. DIGESTIVE: Benign abdomen with positive bowel sounds. EXTREMITIES: No peripheral edema. SKIN: No new gross rash. LYMPHATICS: No peripheral lymphadenopathy. LABORATORY INVESTIGATION: None today. IMPRESSION: Advanced chronic kidney disease, stage 4, seems to be stable. PLAN: 1. Continue current renal supportive measures. 2. Renally dose all medications. 3. Avoid potentially nephrotoxic agents. 4. Further management to be dependent on the clinical course. Job ID: [id number]
[2019-04-02] MEDS: Furosemide 20 MG TAB PO SCH (10:19)
[2019-04-02] MEDS: Ferrous Sulfate 325 MG TAB PO SCH (10:19)
[2019-04-02] MEDS: glipiZIDE 5 MG TAB PO SCH (10:19)
[2019-04-02] MEDS: Tamsulosin HCl 0.4 MG CAP PO SCH (10:19)
[2019-04-02] MEDS: NIFEdipine XL 90 MG TAB PO SCH (10:19)
[2019-04-02] MEDS: Carvedilol 6.25 MG TAB PO SCH ×2 (10:20→20:32)
[2019-04-02] MEDS: HYDROcodone/Acetaminophen 5/325 mg Tablet PO PRN (10:20)
[2019-04-02] MEDS: Famotidine 20 MG TAB PO SCH (10:20)
[2019-04-02] MEDS: Aspirin 81 mg Enteric Coated Tablet PO SCH (10:21)
[2019-04-02] MEDS: Calcitriol 0.25 MCG CAP PO SCH (10:21)
[2019-04-02] MEDS: Finasteride 5 MG TAB PO SCH (10:21)
--- NOTE | 2019-04-02 10:25 | PDOC.HOSPP ---
- Subjective Encounter Date: 04/02/19 Encounter Time: 08:45 Subjective: No acute overnights events; some variation in blood pressure, overall control adequate. No CP/SOB/Nausea today. Eating well, no fever. Stands up at side of bed to void. - Objective Vital Signs & Weight: Vital Signs (12 hours) Temp Pulse Resp BP BP BP Pulse Ox 04/02/19 10:20 152/72 H 04/02/19 10:19 72 152/72 H 04/02/19 08:00 98.3 F 72 18 152/72 H 98 04/02/19 07:50 98 04/02/19 04:00 97.8 F 65 16 148/83 H 97 04/02/19 00:00 98.3 F 72 16 136/65 97 Weight Weight 199 lb I&O: 04/01/19 04/02/19 04/03/19 06:59 06:59 06:59 Intake Total 900 2760 300 Output Total 1585 2935 500 Balance -685 -175 -200 Result Diagrams: 03/25/19 03:35 03/31/19 04:49 Additional Labs: Accuchecks 04/02/19 04/01/19 04/01/19 06:37 20:18 17:08 POC Glucose 85 239 H 92 04/01/19 10:55 POC Glucose 197 H Hospitalist ROS - Medication Medications: Active Medications Generic Name Dose Route Start Last Admin Trade Name Freq PRN Reason Stop Dose Admin Acetaminophen 650 mg 03/24/19 22:00 04/01/19 11:12 Tylenol PO 650 mg Q4H PRN Administration Headache/Fever/Mild Pain (1-3) Hydrocodone Bitart/Acetaminophen 1 tab 03/24/19 22:00 04/02/19 10:[address] [place] 5/325 PO 1 tab Q4H PRN Administration Moderate Pain (4-6) Aspirin 81 mg 03/27/19 09:00 04/02/19 10:21 Ecotrin PO 81 mg DAILY HAILEE Administration Atorvastatin Calcium 40 mg 03/26/19 21:00 04/01/19 20:40 Lipitor PO 40 mg HS HAILEE Administration Calcitriol 0.25 mcg 03/29/19 09:00 04/02/19 10:21 Rocaltrol PO 0.25 mcg DAILY HAILEE Administration Carvedilol 12.5 mg 03/27/19 21:00 04/02/19 10:20 Coreg PO 12.5 mg BID HAILEE Administration Clonidine 0.1 mg 03/24/19 22:00 03/27/19 06:12 Catapres PO 0.1 mg Q4H PRN Administration SBP GREATER THAN 160 Clopidogrel Bisulfate 75 mg 03/25/19 09:00 04/01/19 11:15 Plavix PO 75 mg DAILY HAILEE Administration Famotidine 20 mg 03/25/19 09:00 04/02/19 10:20 Pepcid PO 20 mg DAILY HAILEE Administration Ferrous Sulfate 325 mg 03/25/19 08:00 04/02/19 10:19 Feosol PO 325 mg QAM-WM HAILEE Administration Finasteride 5 mg 03/27/19 09:00 04/02/19 10:21 Proscar PO 5 mg DAILY HAILEE Administration Furosemide 20 mg 03/31/19 09:00 04/02/19 10:19 Lasix PO 20 mg DAILY HAILEE Administration Glipizide 5 mg 03/27/19 09:00 04/02/19 10:19 Glucotrol PO 5 mg DAILY HAILEE Administration Heparin Sodium (Porcine) 5,000 units 03/25/19 09:00 04/01/19 20:40 Heparin SC 5,000 units BID HAILEE Administration Hydralazine HCl 10 mg 03/24/19 22:00 03/26/19 06:11 Apresoline SLOW IVP 10 mg Q4H PRN Administration SBP > 180 and HR < 70 Insulin Human Lispro 0 units 03/24/19 22:00 04/01/19 11:31 Humalog SC 2 unit .MODERATE SLIDING SC PRN Administration Moderate Correctional Scale Insulin Human NPH 8 unit 03/26/19 21:00 04/01/19 20:51 Humulin N SC 8 unit QPM HAILEE Administration Insulin Human NPH 12 unit 03/27/19 09:00 04/01/19 11:16 Humulin N SC 12 unit QAM HAILEE Administration Isosorbide Mononitrate 60 mg 03/26/19 09:00 04/02/19 10:21 Imdur PO 60 mg DAILY HAILEE Administration Labetalol HCl 20 mg 03/24/19 22:00 03/26/19 04:40 Normodyne SLOW IVP 20 mg Q4H PRN Administration SBP > 180 and HR >/= 70 Lorazepam 1 mg 03/25/19 12:05 03/25/19 14:12 Ativan SLOW IVP 1 mg Q8H PRN Administration Agitation Nifedipine 90 mg 03/26/19 09:00 04/02/19 10:19 Procardia Xl PO 90 mg DAILY HAILEE Administration Senna/Docusate Sodium 2 tab 03/24/19 22:00 03/29/19 14:28 Senokot S PO 2 tab BID PRN Administration Constipation Sodium Chloride 10 ml 03/24/19 22:00 03/26/19 09:32 Flush - Normal Saline IVF 10 ml PRN PRN Administration Saline Flush Tamsulosin HCl 0.4 mg 03/27/19 09:00 04/02/19 10:19 Flomax PO 0.4 mg DAILY HAILEE Administration Zolpidem Tartrate 5 mg 03/24/19 22:00 04/01/19 21:01 Ambien PO 5 mg HSPRN PRN Administration Insomnia Hosp A/P (1) Kash-neglect of right side Code(s): R41.4 - NEUROLOGIC NEGLECT SYNDROME Status: Resolved (2) CKD (chronic kidney disease) stage 4, GFR 15-29 ml/min Code(s): N18.4 - CHRONIC KIDNEY DISEASE, STAGE 4 (SEVERE) Status: Chronic (3) Diabetes mellitus type 2 in obese Code(s): E11.69 - TYPE 2 DIABETES MELLITUS WITH OTHER SPECIFIED COMPLICATION; E66.9 - OBESITY, UNSPECIFIED Status: Chronic (4) Diastolic CHF, chronic Code(s): I50.32 - CHRONIC DIASTOLIC (CONGESTIVE) HEART FAILURE Status: Chronic (5) HLD (hyperlipidemia) Code(s): E78.5 - HYPERLIPIDEMIA, UNSPECIFIED Status: Chronic - Plan Neuro - Right sided neglect/altered mental status; MRI negative; Neurology--> suspected malingering, no neurologic complaint today Cards - Labile HTN- monitor blood pressure; no further titration, continue same. Discontinue tele monitor today. Endo - DM- Continue Insulin SS with accuchecks and Glipizide Heme -Anemia of chronic disease, continue Iron supplements - BPH: On flomax, stand to void CKD - stable; maintenence Lasix Awaiting [facility] bed. At this point, [facility] recommended, as his gait is a bit unsteady to be able to return to general population. Medically stable for discharge when bed available. Discussed with case managment 04/01 and bedside nurse 04/01 and 04/02; they will notify me if bed becomes available.
[2019-04-02] MEDS: Heparin 5,000 UNITS/ML VIAL SC SCH ×2 (10:27→20:33)
[2019-04-02] MEDS: NPH, Human Insulin Isophane 300 UNIT/3 ML VIAL SC SCH ×2 (10:28→20:33)
[2019-04-02 12:45] VITALS: BMI 26.9
[2019-04-02] MEDS: Atorvastatin Calcium 40 MG TAB PO SCH (20:32)
--- NOTE | 2019-04-03 05:19 | PRG ---
DATE OF SERVICE: 04/02/2019 SUBJECTIVE: The patient noted with the following vital signs. OBJECTIVE: VITAL SIGNS: Afebrile, temperature 97.1, pulse 65, respiratory rate of 16, O2 saturation of 97%, blood pressure 116/58. HEENT: Unremarkable. CARDIOVASCULAR SYSTEM: First and second heart sounds were heard. RESPIRATORY SYSTEM: Clear to auscultation. DIGESTIVE SYSTEM: Revealed a benign abdomen. EXTREMITIES: No peripheral edema. SKIN: No new gross rash. LYMPHATICS: No peripheral lymphadenopathy. LABORATORY INVESTIGATION: Showed a creatinine of 3.66. IMPRESSION: 1. Chronic kidney disease stage 4. 2. Acute on chronic kidney disease, related to labile hemodynamics. PLAN: 1. Renally dose all medications for low GFR. 2. Renal supportive measures. 3. Avoid potentially nephrotoxic agents. 4. There is no emergent indication for renal replacement therapy (hemodialysis). 5. At this point, patient is awaiting bed and able to discharge once bed becomes available. 6. Further management to be dependent on the clinical course. Job ID: [id number]
[2019-04-03] MEDS: cloNIDine 0.1 MG TAB PO PRN (05:54)
--- NOTE | 2019-04-03 05:58 | PRG ---
DATE OF SERVICE: 04/03/2019 SUBJECTIVE: The patient noted with the following vital signs. OBJECTIVE: VITAL SIGNS: Afebrile, temperature 97.9, pulse 85, respiratory rate of 18, O2 saturation 98% with a blood pressure of 179/85. HEENT: Unremarkable. CARDIOVASCULAR: First and second heart sounds were heard. RESPIRATORY: Clear to auscultation. DIGESTIVE: Revealed a benign abdomen with positive bowel sounds. EXTREMITIES: No peripheral edema. SKIN: No new gross rash. LYMPHATICS: No peripheral lymphadenopathy. IMPRESSION: Advanced chronic kidney disease, stage 4. PLAN: 1. We will re-evaluate renal function . 2. Renally dose all medications. 3. Further management will be dependent on the clinical course. At this time of dictation, the patient seems . Job ID: [id number]
--- NOTE | 2019-04-03 07:01 | PRG ---
DATE OF SERVICE: 03/31/2019 OBJECTIVE: VITAL SIGNS: Patient noted with the following vital signs; afebrile, temperature 98.2; pulse 65; respiratory rate of 16; O2 saturation 96%; and blood pressure 140/65. HEENT: Unremarkable. CARDIOVASCULAR: First and second heart sounds were heard. RESPIRATORY: Clear to auscultation. DIGESTIVE: Revealed a benign abdomen with positive bowel sounds. EXTREMITIES: No peripheral edema. SKIN: No new gross rash. LYMPHATICS: No peripheral lymphadenopathy. LABORATORY INVESTIGATION: Showed a creatinine of 3.66 with a BUN of . IMPRESSION: Advanced chronic kidney disease, stage 4. PLAN: 1. Renally dose all medications. 2. Avoid potentially nephrotoxic agents. 3. Further management to be dependent on the clinical course. 4. There is no indication for renal replacement therapy at this point. Job ID: [id number]
[2019-04-03 07:40] LABS: Albumin 2.6 g/dL (3.5-5.0); Anion Gap 11 mmol/L (10-20); BUN (Urea Nitrogen) 46 mg/dL (8.4-25.7); BUN/Creatinine Ratio 12.37; Calc. Creatinine Clearance 28 mL/min (70-130); Calcium 8.9 mg/dL (7.8-10.44); Carbon Dioxide 29 mmol/L (22-29); Chloride 103 mmol/L (98-107); Estimated GFR-MDRD 17; Glucose 120 mg/dL (70-105); Sodium 139 mmol/L (136-145)
[2019-04-03] MEDS: Carvedilol 6.25 MG TAB PO SCH ×2 (08:38→20:38)
[2019-04-03] MEDS: Famotidine 20 MG TAB PO SCH (08:39)
[2019-04-03] MEDS: NIFEdipine XL 90 MG TAB PO SCH (08:39)
[2019-04-03] MEDS: Finasteride 5 MG TAB PO SCH (08:39)
[2019-04-03] MEDS: Ferrous Sulfate 325 MG TAB PO SCH (08:39)
[2019-04-03] MEDS: glipiZIDE 5 MG TAB PO SCH (08:39)
[2019-04-03] MEDS: Clopidogrel Bisulfate 75 MG TAB PO SCH (08:39)
[2019-04-03] MEDS: Tamsulosin HCl 0.4 MG CAP PO SCH (08:39)
[2019-04-03] MEDS: Aspirin 81 mg Enteric Coated Tablet PO SCH (08:39)
[2019-04-03] MEDS: Furosemide 20 MG TAB PO SCH (08:39)
[2019-04-03] MEDS: Calcitriol 0.25 MCG CAP PO SCH (08:39)
[2019-04-03] MEDS: Heparin 5,000 UNITS/ML VIAL SC SCH ×2 (08:40→20:40)
[2019-04-03] MEDS: NPH, Human Insulin Isophane 300 UNIT/3 ML VIAL SC SCH ×2 (08:41→20:40)
--- NOTE | 2019-04-03 12:31 | PDOC.HOSPP ---
- Subjective Subjective: Seen and examined. Sitting up in chair, breathing well on room air. Denies pain. No troubles urinating. Denies swelling ankles. - Objective Vital Signs & Weight: Vital Signs (12 hours) Temp Pulse Resp BP BP Pulse Ox 04/03/19 08:39 72 147/71 H 04/03/19 08:38 147/71 H 04/03/19 07:46 97.6 F 72 12 147/71 H 97 04/03/19 04:44 97.9 F 85 18 179/85 H 98 04/03/19 00:55 97.9 F 74 18 169/76 H 97 Weight Admit Weight 223 lb 1.6 oz Weight 199 lb I&O: 04/02/19 04/03/19 04/04/19 06:59 06:59 06:59 Intake Total 2760 1737 Output Total 2935 1300 Balance -175 437 Result Diagrams: 03/25/19 03:35 04/03/19 07:11 Additional Labs: Accuchecks 04/03/19 04/02/19 04/02/19 07:16 20:34 17:03 POC Glucose 144 H 114 H 89 Hospitalist ROS - Review of Systems All other systems reviewed; all pertinent +/- noted in HPI/Subj - Medication Medications: Active Medications Generic Name Dose Route Start Last Admin Trade Name Freq PRN Reason Stop Dose Admin Acetaminophen 650 mg 03/24/19 22:00 04/01/19 11:12 Tylenol PO 650 mg Q4H PRN Administration Headache/Fever/Mild Pain (1-3) Hydrocodone Bitart/Acetaminophen 1 tab 03/24/19 22:00 04/02/19 10:20 [place] 5/325 PO 1 tab Q4H PRN Administration Moderate Pain (4-6) Aspirin 81 mg 03/27/19 09:00 04/03/19 08:39 Ecotrin PO 81 mg DAILY HAILEE Administration Atorvastatin Calcium 40 mg 03/26/19 21:00 04/02/19 20:32 Lipitor PO 40 mg HS HAILEE Administration Calcitriol 0.25 mcg 03/29/19 09:00 04/03/19 08:39 Rocaltrol PO 0.25 mcg DAILY HAILEE Administration Carvedilol 12.5 mg 03/27/19 21:00 04/03/19 08:38 Coreg PO 12.5 mg BID HAILEE Administration Clonidine 0.1 mg 03/24/19 22:00 04/03/19 05:54 Catapres PO 0.1 mg Q4H PRN Administration SBP GREATER THAN 160 Clopidogrel Bisulfate 75 mg 03/25/19 09:00 04/03/19 08:39 Plavix PO 75 mg DAILY HAILEE Administration Famotidine 20 mg 03/25/19 09:00 04/03/19 08:39 Pepcid PO 20 mg DAILY HAILEE Administration Ferrous Sulfate 325 mg 03/25/19 08:00 04/03/19 08:39 Feosol PO 325 mg QAM-WM HAILEE Administration Finasteride 5 mg 03/27/19 09:00 04/03/19 08:39 Proscar PO 5 mg DAILY HAILEE Administration Furosemide 20 mg 03/31/19 09:00 04/03/19 08:39 Lasix PO 20 mg DAILY HAILEE Administration Glipizide 5 mg 03/27/19 09:00 04/03/19 08:39 Glucotrol PO 5 mg DAILY HAILEE Administration Heparin Sodium (Porcine) 5,000 units 03/25/19 09:00 04/03/19 08:40 Heparin SC 5,000 units BID HAILEE Administration Hydralazine HCl 10 mg 03/24/19 22:00 03/26/19 06:11 Apresoline SLOW IVP 10 mg Q4H PRN Administration SBP > 180 and HR < 70 Insulin Human Lispro 0 units 03/24/19 22:00 04/01/19 11:31 Humalog SC 2 unit .MODERATE SLIDING SC PRN Administration Moderate Correctional Scale Insulin Human NPH 8 unit 03/26/19 21:00 04/02/19 20:33 Humulin N SC 8 unit QPM HAILEE Administration Insulin Human NPH 12 unit 03/27/19 09:00 04/03/19 08:41 Humulin N SC 12 unit QAM HAILEE Administration Isosorbide Mononitrate 60 mg 03/26/19 09:00 04/03/19 08:39 Imdur PO 60 mg DAILY HAILEE Administration Labetalol HCl 20 mg 03/24/19 22:00 03/26/19 04:40 Normodyne SLOW IVP 20 mg Q4H PRN Administration SBP > 180 and HR >/= 70 Lorazepam 1 mg 03/25/19 12:05 03/25/19 14:12 Ativan SLOW IVP 1 mg Q8H PRN Administration Agitation Nifedipine 90 mg 03/26/19 09:00 04/03/19 08:39 Procardia Xl PO 90 mg DAILY HAILEE Administration Senna/Docusate Sodium 2 tab 03/24/19 22:00 03/29/19 14:28 Senokot S PO 2 tab BID PRN Administration Constipation Sodium Chloride 10 ml 03/24/19 22:00 03/26/19 09:32 Flush - Normal Saline IVF 10 ml PRN PRN Administration Saline Flush Tamsulosin HCl 0.4 mg 03/27/19 09:00 04/03/19 08:39 Flomax PO 0.4 mg DAILY HAILEE Administration Zolpidem Tartrate 5 mg 03/24/19 22:00 04/01/19 21:01 Ambien PO 5 mg HSPRN PRN Administration Insomnia - Exam General Appearance: NAD Eye: anicteric sclera Eye - other findings: EOMI ENT: no oropharyngeal lesions, moist mucosa Neck: supple, no thyromegaly Heart: no murmur, no gallops, no rubs Heart - other findings: S1 and S2 present Respiratory: CTAB, no wheezes, no rales, no ronchi Gastrointestinal: soft, non-tender, non-distended, no palpable masses, no guarding, no rigidity Extremities: no edema Skin: no lesions, no rashes Neurological: CN's grossly intact, normal sensation to touch, no weakness Musculoskeletal: no muscle wasting Psychiatric: normal affect, A&O x 3 Hosp A/P (1) CKD (chronic kidney disease) stage 4, GFR 15-29 ml/min Code(s): N18.4 - CHRONIC KIDNEY DISEASE, STAGE 4 (SEVERE) Status: Chronic (2) Diabetes mellitus type 2 in obese Code(s): E11.69 - TYPE 2 DIABETES MELLITUS WITH OTHER SPECIFIED COMPLICATION; E66.9 - OBESITY, UNSPECIFIED Status: Chronic (3) Diastolic CHF, chronic Code(s): I50.32 - CHRONIC DIASTOLIC (CONGESTIVE) HEART FAILURE Status: Chronic (4) HLD (hyperlipidemia) Code(s): E78.5 - HYPERLIPIDEMIA, UNSPECIFIED Status: Chronic (5) HTN (hypertension) Code(s): I10 - ESSENTIAL (PRIMARY) HYPERTENSION Status: Chronic - Plan Plan: Medically stable for D/c to lower level of care - [facility], will plan for D/c when bed available Nephrology consult, recommendations appreciated FEDERICO on CKD is stable at this time Avoid nephrotoxins as able Continue oral DM meds and insulin for glucose control Replace electrolytes as needed GI and DVT PPX
[2019-04-03] MEDS: HumaLOG 300 UNITS/3 ML VIAL SC PRN (17:34)
[2019-04-03] MEDS: Atorvastatin Calcium 40 MG TAB PO SCH (20:38)
[2019-04-03] MEDS: Zolpidem Tartrate 5 MG TAB PO PRN (20:38)
[2019-04-04] MEDS: NPH, Human Insulin Isophane 300 UNIT/3 ML VIAL SC SCH ×2 (08:39→21:22)
[2019-04-04] MEDS: Finasteride 5 MG TAB PO SCH (08:40)
[2019-04-04] MEDS: NIFEdipine XL 90 MG TAB PO SCH (08:40)
[2019-04-04] MEDS: Furosemide 20 MG TAB PO SCH (08:40)
[2019-04-04] MEDS: Carvedilol 6.25 MG TAB PO SCH ×2 (08:40→21:21)
[2019-04-04] MEDS: Tamsulosin HCl 0.4 MG CAP PO SCH (08:40)
[2019-04-04] MEDS: glipiZIDE 5 MG TAB PO SCH (08:40)
[2019-04-04] MEDS: Calcitriol 0.25 MCG CAP PO SCH (08:40)
[2019-04-04] MEDS: Clopidogrel Bisulfate 75 MG TAB PO SCH (08:40)
[2019-04-04] MEDS: Ferrous Sulfate 325 MG TAB PO SCH (08:40)
[2019-04-04] MEDS: Aspirin 81 mg Enteric Coated Tablet PO SCH (08:40)
[2019-04-04] MEDS: Famotidine 20 MG TAB PO SCH (08:40)
[2019-04-04] MEDS: Heparin 5,000 UNITS/ML VIAL SC SCH ×2 (08:41→21:21)
[2019-04-04] MEDS: HumaLOG 300 UNITS/3 ML VIAL SC PRN (11:56)
--- NOTE | 2019-04-04 13:27 | PDOC.HOSPP ---
- Subjective Subjective: Seen and examined. Breathing well on room air. No LE edema. Patient states that he had to get up in the night to urinate and almost didnt make it. Denies pain. Breathing well on room air. - Objective Vital Signs & Weight: Vital Signs (12 hours) Temp Pulse Resp BP BP BP Pulse Ox 04/04/19 11:05 97.5 F L 71 18 128/62 98 04/04/19 08:40 85 174/75 H 04/04/19 08:05 97.8 F 85 18 174/76 H 98 04/04/19 08:00 98 04/04/19 03:43 97.7 F 81 16 120/95 H 99 Weight Admit Weight 223 lb 1.6 oz Weight 199 lb I&O: 04/03/19 04/04/19 04/05/19 06:59 06:59 06:59 Intake Total 1737 1540 Output Total 1300 850 Balance 437 690 Result Diagrams: 03/25/19 03:35 04/03/19 07:11 Additional Labs: Accuchecks 04/04/19 04/04/19 04/03/19 11:09 05:26 20:36 POC Glucose 208 H 133 H 124 H 04/03/19 04/03/19 15:51 11:48 POC Glucose 211 H 141 H Hospitalist ROS - Review of Systems All other systems reviewed; all pertinent +/- noted in HPI/Subj - Medication Medications: Active Medications Generic Name Dose Route Start Last Admin Trade Name Freq PRN Reason Stop Dose Admin Acetaminophen 650 mg 03/24/19 22:00 04/01/19 11:12 Tylenol PO 650 mg Q4H PRN Administration Headache/Fever/Mild Pain (1-3) Aspirin 81 mg 03/27/19 09:00 04/04/19 08:40 Ecotrin PO 81 mg DAILY HAILEE Administration Atorvastatin Calcium 40 mg 03/26/19 21:00 04/03/19 20:38 Lipitor PO 40 mg HS HAILEE Administration Calcitriol 0.25 mcg 03/29/19 09:00 04/04/19 08:40 Rocaltrol PO 0.25 mcg DAILY HAILEE Administration Carvedilol 12.5 mg 03/27/19 21:00 04/04/19 08:40 Coreg PO 12.5 mg BID HAILEE Administration Clonidine 0.1 mg 03/24/19 22:00 04/03/19 05:54 Catapres PO 0.1 mg Q4H PRN Administration SBP GREATER THAN 160 Clopidogrel Bisulfate 75 mg 03/25/19 09:00 04/04/19 08:40 Plavix PO 75 mg DAILY HAILEE Administration Famotidine 20 mg 03/25/19 09:00 04/04/19 08:40 Pepcid PO 20 mg DAILY HAILEE Administration Ferrous Sulfate 325 mg 03/25/19 08:00 04/04/19 08:40 Feosol PO 325 mg QAM-WM HAILEE Administration Finasteride 5 mg 03/27/19 09:00 04/04/19 08:40 Proscar PO 5 mg DAILY HAILEE Administration Furosemide 20 mg 03/31/19 09:00 04/04/19 08:40 Lasix PO 20 mg DAILY HAILEE Administration Glipizide 5 mg 03/27/19 09:00 04/04/19 08:40 Glucotrol PO 5 mg DAILY HAILEE Administration Heparin Sodium (Porcine) 5,000 units 03/25/19 09:00 04/04/19 08:41 Heparin SC 5,000 units BID HAILEE Administration Hydralazine HCl 10 mg 03/24/19 22:00 03/26/19 06:11 Apresoline SLOW IVP 10 mg Q4H PRN Administration SBP > 180 and HR < 70 Insulin Human Lispro 0 units 03/24/19 22:00 04/04/19 11:56 Humalog SC 4 unit .MODERATE SLIDING SC PRN Administration Moderate Correctional Scale Insulin Human NPH 8 unit 03/26/19 21:00 04/03/19 20:40 Humulin N SC 8 unit QPM HAILEE Administration Insulin Human NPH 12 unit 03/27/19 09:00 04/04/19 08:39 Humulin N SC 12 unit QAM HAILEE Administration Isosorbide Mononitrate 60 mg 03/26/19 09:00 04/04/19 08:40 Imdur PO 60 mg DAILY HAILEE Administration Labetalol HCl 20 mg 03/24/19 22:00 03/26/19 04:40 Normodyne SLOW IVP 20 mg Q4H PRN Administration SBP > 180 and HR >/= 70 Nifedipine 90 mg 03/26/19 09:00 04/04/19 08:40 Procardia Xl PO 90 mg DAILY HAILEE Administration Senna/Docusate Sodium 2 tab 03/24/19 22:00 03/29/19 14:28 Senokot S PO 2 tab BID PRN Administration Constipation Sodium Chloride 10 ml 03/24/19 22:00 03/26/19 09:32 Flush - Normal Saline IVF 10 ml PRN PRN Administration Saline Flush Tamsulosin HCl 0.4 mg 03/27/19 09:00 04/04/19 08:40 Flomax PO 0.4 mg DAILY HAILEE Administration Zolpidem Tartrate 5 mg 03/24/19 22:00 04/03/19 20:38 Ambien PO 5 mg HSPRN PRN Administration Insomnia - Exam General Appearance: NAD Eye: PERRL Eye - other findings: EOMI ENT: no oropharyngeal lesions, moist mucosa Neck: no lymphadenopathy Heart: RRR, no murmur, no gallops Respiratory: CTAB, no wheezes, no rales, no ronchi Gastrointestinal: soft, non-tender, non-distended, no guarding, no rigidity Extremities: no cyanosis, no edema Skin: no lesions, no rashes Neurological: CN's grossly intact, no weakness, no focal deficits Musculoskeletal: no muscle wasting Psychiatric: normal affect, A&O x 3 Hosp A/P (1) CKD (chronic kidney disease) stage 4, GFR 15-29 ml/min Code(s): N18.4 - CHRONIC KIDNEY DISEASE, STAGE 4 (SEVERE) Status: Chronic (2) Diabetes mellitus type 2 in obese Code(s): E11.69 - TYPE 2 DIABETES MELLITUS WITH OTHER SPECIFIED COMPLICATION; E66.9 - OBESITY, UNSPECIFIED Status: Chronic (3) Diastolic CHF, chronic Code(s): I50.32 - CHRONIC DIASTOLIC (CONGESTIVE) HEART FAILURE Status: Chronic (4) HLD (hyperlipidemia) Code(s): E78.5 - HYPERLIPIDEMIA, UNSPECIFIED Status: Chronic (5) HTN (hypertension) Code(s): I10 - ESSENTIAL (PRIMARY) HYPERTENSION Status: Chronic - Plan Plan: Medically stable for D/c to lower level of care - was recommended for [facility] bed, will plan for D/c when bed available Case management to assist in D/c planning Nephrology consult, recommendations appreciated FEDERICO on CKD is stable at this time Avoid nephrotoxins as able Continue oral DM meds and insulin for glucose control Replace electrolytes as needed GI and DVT PPX
[2019-04-04] MEDS: Atorvastatin Calcium 40 MG TAB PO SCH (21:21)
--- NOTE | 2019-04-05 01:06 | EKG ---
Test Reason : Blood Pressure : / mmHG Vent. Rate : 057 BPM Atrial Rate : 057 BPM P-R Int : 228 ms QRS Dur : 100 ms QT Int : 548 ms P-R-T Axes : 048 032 001 degrees QTc Int : 533 ms Sinus bradycardia with 1st degree A-V block RSR' or QR pattern in V1 suggests right ventricular conduction delay Nonspecific T wave abnormality Prolonged QT Abnormal ECG No changes [id number] Confirmed by PAUL TATUM ([id number]), map editor DIVINA GARCIA ([id number]) on 04/05/2019 1:06:01 AM Referred By: Confirmed By:PAUL TATUM
[2019-04-05] MEDS: NIFEdipine XL 90 MG TAB PO SCH (09:25)
[2019-04-05] MEDS: Heparin 5,000 UNITS/ML VIAL SC SCH ×2 (09:25→21:25)
[2019-04-05] MEDS: NPH, Human Insulin Isophane 300 UNIT/3 ML VIAL SC SCH ×2 (09:25→21:25)
[2019-04-05] MEDS: Ferrous Sulfate 325 MG TAB PO SCH (09:26)
[2019-04-05] MEDS: Carvedilol 6.25 MG TAB PO SCH ×2 (09:26→21:22)
[2019-04-05] MEDS: Calcitriol 0.25 MCG CAP PO SCH (09:27)
[2019-04-05] MEDS: Tamsulosin HCl 0.4 MG CAP PO SCH (09:27)
[2019-04-05] MEDS: glipiZIDE 5 MG TAB PO SCH (09:27)
[2019-04-05] MEDS: Finasteride 5 MG TAB PO SCH (09:27)
[2019-04-05] MEDS: Furosemide 20 MG TAB PO SCH (09:27)
[2019-04-05] MEDS: Aspirin 81 mg Enteric Coated Tablet PO SCH (09:27)
[2019-04-05] MEDS: Clopidogrel Bisulfate 75 MG TAB PO SCH (09:27)
[2019-04-05] MEDS: Famotidine 20 MG TAB PO SCH (09:27)
--- NOTE | 2019-04-05 15:42 | PDOC.HOSPP ---
- Subjective Subjective: Seen and examined. Clinically doing well, stable for lower level of care - pending [facility] bed availability. Some wheezing today, not using incentive spirometry. Will add Duo nebs PRN. - Objective Vital Signs & Weight: Vital Signs (12 hours) Temp Pulse Resp BP BP BP Pulse Ox 04/05/19 11:00 97.8 F 74 16 136/62 99 04/05/19 09:25 72 177/79 H 04/05/19 07:44 97.9 F 86 16 114/72 99 04/05/19 04:00 97.6 F 76 14 158/90 H 100 Weight Admit Weight 223 lb 1.6 oz Weight 198 lb 14.946 oz I&O: 04/04/19 04/05/19 04/06/19 06:59 06:59 06:59 Intake Total 1540 1700 Output Total 850 350 Balance 690 1350 Result Diagrams: 03/25/19 03:35 04/03/19 07:11 Additional Labs: Accuchecks 04/05/19 04/05/19 04/04/19 11:04 05:26 20:48 POC Glucose 133 H 117 H 177 H 04/04/19 15:48 POC Glucose 82 Hospitalist ROS - Medication Medications: Active Medications Generic Name Dose Route Start Last Admin Trade Name Freq PRN Reason Stop Dose Admin Acetaminophen 650 mg 03/24/19 22:00 04/01/19 11:12 Tylenol PO 650 mg Q4H PRN Administration Headache/Fever/Mild Pain (1-3) Aspirin 81 mg 03/27/19 09:00 04/05/19 09:27 Ecotrin PO 81 mg DAILY HAILEE Administration Atorvastatin Calcium 40 mg 03/26/19 21:00 04/04/19 21:21 Lipitor PO 40 mg HS HAILEE Administration Calcitriol 0.25 mcg 03/29/19 09:00 04/05/19 09:27 Rocaltrol PO 0.25 mcg DAILY HAILEE Administration Carvedilol 12.5 mg 03/27/19 21:00 04/05/19 09:26 Coreg PO 12.5 mg BID HAILEE Administration Clonidine 0.1 mg 03/24/19 22:00 04/03/19 05:54 Catapres PO 0.1 mg Q4H PRN Administration SBP GREATER THAN 160 Clopidogrel Bisulfate 75 mg 03/25/19 09:00 04/05/19 09:27 Plavix PO 75 mg DAILY HAILEE Administration Famotidine 20 mg 03/25/19 09:00 04/05/19 09:27 Pepcid PO 20 mg DAILY HAILEE Administration Ferrous Sulfate 325 mg 03/25/19 08:00 04/05/19 09:26 Feosol PO 325 mg QAM-WM HAILEE Administration Finasteride 5 mg 03/27/19 09:00 04/05/19 09:27 Proscar PO 5 mg DAILY HAILEE Administration Furosemide 20 mg 03/31/19 09:00 04/05/19 09:27 Lasix PO 20 mg DAILY HAILEE Administration Glipizide 5 mg 03/27/19 09:00 04/05/19 09:27 Glucotrol PO 5 mg DAILY HAILEE Administration Heparin Sodium (Porcine) 5,000 units 03/25/19 09:00 04/05/19 09:25 Heparin SC 5,000 units BID HAILEE Administration Hydralazine HCl 10 mg 03/24/19 22:00 03/26/19 06:11 Apresoline SLOW IVP 10 mg Q4H PRN Administration SBP > 180 and HR < 70 Insulin Human Lispro 0 units 03/24/19 22:00 04/04/19 11:56 Humalog SC 4 unit .MODERATE SLIDING SC PRN Administration Moderate Correctional Scale Insulin Human NPH 8 unit 03/26/19 21:00 04/04/19 21:22 Humulin N SC 8 unit QPM HAILEE Administration Insulin Human NPH 12 unit 03/27/19 09:00 04/05/19 09:25 Humulin N SC 12 unit QAM HAILEE Administration Isosorbide Mononitrate 60 mg 03/26/19 09:00 04/05/19 09:26 Imdur PO 60 mg DAILY HAILEE Administration Labetalol HCl 20 mg 03/24/19 22:00 03/26/19 04:40 Normodyne SLOW IVP 20 mg Q4H PRN Administration SBP > 180 and HR >/= 70 Nifedipine 90 mg 03/26/19 09:00 04/05/19 09:25 Procardia Xl PO 90 mg DAILY HAILEE Administration Senna/Docusate Sodium 2 tab 03/24/19 22:00 03/29/19 14:28 Senokot S PO 2 tab BID PRN Administration Constipation Sodium Chloride 10 ml 03/24/19 22:00 03/26/19 09:32 Flush - Normal Saline IVF 10 ml PRN PRN Administration Saline Flush Tamsulosin HCl 0.4 mg 03/27/19 09:00 04/05/19 09:27 Flomax PO 0.4 mg DAILY HAILEE Administration Zolpidem Tartrate 5 mg 03/24/19 22:00 04/03/19 20:38 Ambien PO 5 mg HSPRN PRN Administration Insomnia - Exam General Appearance: NAD Eye: PERRL, anicteric sclera Eye - other findings: EOMI ENT: normocephalic atraumatic, no oropharyngeal lesions Neck: supple, no lymphadenopathy Heart: RRR, no murmur, no gallops, no rubs Respiratory: CTAB, no rales, no ronchi, normal chest expansion, wheezes Gastrointestinal: soft, non-tender, non-distended, normal bowel sounds, no palpable masses, no guarding, no rigidity Extremities: no edema Skin: no lesions, no rashes Neurological: CN's grossly intact, no weakness Musculoskeletal: normal strength Psychiatric: normal affect, A&O x 3 Hosp A/P (1) CKD (chronic kidney disease) stage 4, GFR 15-29 ml/min Code(s): N18.4 - CHRONIC KIDNEY DISEASE, STAGE 4 (SEVERE) Status: Chronic (2) Diabetes mellitus type 2 in obese Code(s): E11.69 - TYPE 2 DIABETES MELLITUS WITH OTHER SPECIFIED COMPLICATION; E66.9 - OBESITY, UNSPECIFIED Status: Chronic (3) Diastolic CHF, chronic Code(s): I50.32 - CHRONIC DIASTOLIC (CONGESTIVE) HEART FAILURE Status: Chronic (4) HLD (hyperlipidemia) Code(s): E78.5 - HYPERLIPIDEMIA, UNSPECIFIED Status: Chronic (5) HTN (hypertension) Code(s): I10 - ESSENTIAL (PRIMARY) HYPERTENSION Status: Chronic - Plan Plan: Medically stable for D/c to lower level of care - was recommended for [facility] bed, will plan for D/c when bed available Case management to assist in D/c planning Nephrology consult, recommendations appreciated FEDERICO on CKD is stable at this time Avoid nephrotoxins as able Continue oral DM meds and insulin for glucose control IS - Q1 hour while awake Duo nebs PRN Replace electrolytes as needed GI and DVT PPX
--- NOTE | 2019-04-05 18:17 | PRG ---
DATE OF SERVICE: 04/05/2019 OBJECTIVE: VITAL SIGNS: Patient noted with following vital signs, afebrile, temperature 97.8, pulse 74, respiratory rate of 16, blood pressure 177/79. HEENT: Unremarkable. CARDIOVASCULAR: First and second heart sounds were heard. RESPIRATORY SYSTEM: Clear to auscultation. DIGESTIVE: Benign abdomen with positive bowel sounds. EXTREMITIES: No peripheral edema. SKIN: No new gross rash. LYMPHATICS: No peripheral lymphadenopathy. IMPRESSION: Advanced chronic kidney disease, stage 4, seems to remain stable. PLAN: We will continue with current renal supportive measures. Job ID: [id number]
[2019-04-05] MEDS: Atorvastatin Calcium 40 MG TAB PO SCH (21:22)
[2019-04-06] MEDS: Carvedilol 6.25 MG TAB PO SCH ×2 (08:42→21:33)
[2019-04-06] MEDS: Heparin 5,000 UNITS/ML VIAL SC SCH ×2 (08:42→21:33)
[2019-04-06] MEDS: NPH, Human Insulin Isophane 300 UNIT/3 ML VIAL SC SCH ×2 (08:42→21:33)
[2019-04-06] MEDS: NIFEdipine XL 90 MG TAB PO SCH (08:42)
[2019-04-06] MEDS: Calcitriol 0.25 MCG CAP PO SCH (08:42)
[2019-04-06] MEDS: Ferrous Sulfate 325 MG TAB PO SCH (08:43)
[2019-04-06] MEDS: Clopidogrel Bisulfate 75 MG TAB PO SCH (08:43)
[2019-04-06] MEDS: Tamsulosin HCl 0.4 MG CAP PO SCH (08:43)
[2019-04-06] MEDS: Famotidine 20 MG TAB PO SCH (08:43)
[2019-04-06] MEDS: Furosemide 20 MG TAB PO SCH (08:43)
[2019-04-06] MEDS: Finasteride 5 MG TAB PO SCH (08:43)
[2019-04-06] MEDS: Aspirin 81 mg Enteric Coated Tablet PO SCH (08:43)
[2019-04-06] MEDS: glipiZIDE 5 MG TAB PO SCH (08:43)
--- NOTE | 2019-04-06 10:06 | PDOC.HOSPP ---
- Subjective Subjective: Seen and examined. Breathing better, no wheezing today, now that he is using incentive spirometry. Tested/ educated his use of incentive spirometry. No acute overnight events. No acute complaints. - Objective Vital Signs & Weight: Vital Signs (12 hours) Temp Pulse Resp BP Pulse Ox 04/06/19 07:59 97.1 F L 72 18 123/73 94 L Weight Admit Weight 223 lb 1.6 oz Weight 198 lb 14.946 oz I&O: 04/05/19 04/06/19 04/07/19 06:59 06:59 06:59 Intake Total 1700 1700 Output Total 350 2500 Balance 1350 -800 Result Diagrams: 03/25/19 03:35 04/03/19 07:11 Additional Labs: Accuchecks 04/06/19 04/05/19 04/05/19 06:41 21:30 16:00 POC Glucose 117 H 114 H 100 04/05/19 11:04 POC Glucose 133 H Hospitalist ROS - Review of Systems All other systems reviewed; all pertinent +/- noted in HPI/Subj - Medication Medications: Active Medications Generic Name Dose Route Start Last Admin Trade Name Freq PRN Reason Stop Dose Admin Acetaminophen 650 mg 03/24/19 22:00 04/01/19 11:12 Tylenol PO 650 mg Q4H PRN Administration Headache/Fever/Mild Pain (1-3) Aspirin 81 mg 03/27/19 09:00 04/06/19 08:43 Ecotrin PO 81 mg DAILY HAILEE Administration Atorvastatin Calcium 40 mg 03/26/19 21:00 04/05/19 21:22 Lipitor PO 40 mg HS HAILEE Administration Calcitriol 0.25 mcg 03/29/19 09:00 04/06/19 08:42 Rocaltrol PO 0.25 mcg DAILY HAILEE Administration Carvedilol 12.5 mg 03/27/19 21:00 04/06/19 08:42 Coreg PO 12.5 mg BID HAILEE Administration Clonidine 0.1 mg 03/24/19 22:00 04/03/19 05:54 Catapres PO 0.1 mg Q4H PRN Administration SBP GREATER THAN 160 Clopidogrel Bisulfate 75 mg 03/25/19 09:00 04/06/19 08:43 Plavix PO 75 mg DAILY HAILEE Administration Famotidine 20 mg 03/25/19 09:00 04/06/19 08:43 Pepcid PO 20 mg DAILY HAILEE Administration Ferrous Sulfate 325 mg 03/25/19 08:00 04/06/19 08:43 Feosol PO 325 mg QAM-WM HAILEE Administration Finasteride 5 mg 03/27/19 09:00 04/06/19 08:43 Proscar PO 5 mg DAILY HAILEE Administration Furosemide 20 mg 03/31/19 09:00 04/06/19 08:43 Lasix PO 20 mg DAILY HAILEE Administration Glipizide 5 mg 03/27/19 09:00 04/06/19 08:43 Glucotrol PO 5 mg DAILY HAILEE Administration Heparin Sodium (Porcine) 5,000 units 03/25/19 09:00 04/06/19 08:42 Heparin SC 5,000 units BID HAILEE Administration Hydralazine HCl 10 mg 03/24/19 22:00 03/26/19 06:11 Apresoline SLOW IVP 10 mg Q4H PRN Administration SBP > 180 and HR < 70 Insulin Human Lispro 0 units 03/24/19 22:00 04/04/19 11:56 Humalog SC 4 unit .MODERATE SLIDING SC PRN Administration Moderate Correctional Scale Insulin Human NPH 8 unit 03/26/19 21:00 04/05/19 21:25 Humulin N SC 8 unit QPM HAILEE Administration Insulin Human NPH 12 unit 03/27/19 09:00 04/06/19 08:42 Humulin N SC 12 unit QAM HAILEE Administration Isosorbide Mononitrate 60 mg 03/26/19 09:00 04/06/19 08:43 Imdur PO 60 mg DAILY HAILEE Administration Labetalol HCl 20 mg 03/24/19 22:00 03/26/19 04:40 Normodyne SLOW IVP 20 mg Q4H PRN Administration SBP > 180 and HR >/= 70 Nifedipine 90 mg 03/26/19 09:00 04/06/19 08:42 Procardia Xl PO 90 mg DAILY HAILEE Administration Senna/Docusate Sodium 2 tab 03/24/19 22:00 03/29/19 14:28 Senokot S PO 2 tab BID PRN Administration Constipation Sodium Chloride 10 ml 03/24/19 22:00 03/26/19 09:32 Flush - Normal Saline IVF 10 ml PRN PRN Administration Saline Flush Tamsulosin HCl 0.4 mg 03/27/19 09:00 04/06/19 08:43 Flomax PO 0.4 mg DAILY HAILEE Administration Zolpidem Tartrate 5 mg 03/24/19 22:00 04/03/19 20:38 Ambien PO 5 mg HSPRN PRN Administration Insomnia - Exam General Appearance: NAD Eye: anicteric sclera Eye - other findings: EOMI ENT: no oropharyngeal lesions, moist mucosa Neck: supple, symmetric, no lymphadenopathy Heart: no murmur, no gallops, no rubs Heart - other findings: S1 and S2 present Respiratory: CTAB, no wheezes, no rales, no ronchi, normal chest expansion Gastrointestinal: soft, non-tender, non-distended, no palpable masses, no guarding, no rigidity Extremities: no edema Skin: no lesions, no rashes Neurological: CN's grossly intact, no focal deficits Musculoskeletal: generalized weakness Psychiatric: normal affect, A&O x 3 Hosp A/P (1) CKD (chronic kidney disease) stage 4, GFR 15-29 ml/min Code(s): N18.4 - CHRONIC KIDNEY DISEASE, STAGE 4 (SEVERE) Status: Chronic (2) Diabetes mellitus type 2 in obese Code(s): E11.69 - TYPE 2 DIABETES MELLITUS WITH OTHER SPECIFIED COMPLICATION; E66.9 - OBESITY, UNSPECIFIED Status: Chronic (3) Diastolic CHF, chronic Code(s): I50.32 - CHRONIC DIASTOLIC (CONGESTIVE) HEART FAILURE Status: Chronic (4) HLD (hyperlipidemia) Code(s): E78.5 - HYPERLIPIDEMIA, UNSPECIFIED Status: Chronic (5) HTN (hypertension) Code(s): I10 - ESSENTIAL (PRIMARY) HYPERTENSION Status: Chronic - Plan Plan: Medically stable for D/c to lower level of care - was recommended for [facility] bed, will plan for D/c when bed available Case management to assist in D/c planning Nephrology consult, recommendations appreciated FEDERICO on CKD is stable at this time Avoid nephrotoxins as able Continue oral DM meds and insulin for glucose control IS - Q1 hour while awake Duo nebs PRN Replace electrolytes as needed GI and DVT PPX
[2019-04-06] MEDS: HumaLOG 300 UNITS/3 ML VIAL SC PRN (11:23)
[2019-04-06] MEDS: Atorvastatin Calcium 40 MG TAB PO SCH (21:32)
[2019-04-06] MEDS: Zolpidem Tartrate 5 MG TAB PO PRN (23:50)
[2019-04-07] MEDS: Aspirin 81 mg Enteric Coated Tablet PO SCH (08:22)
[2019-04-07] MEDS: Ferrous Sulfate 325 MG TAB PO SCH (08:22)
[2019-04-07] MEDS: Carvedilol 6.25 MG TAB PO SCH ×2 (08:23→21:55)
[2019-04-07] MEDS: glipiZIDE 5 MG TAB PO SCH (08:23)
[2019-04-07] MEDS: Furosemide 20 MG TAB PO SCH (08:23)
[2019-04-07] MEDS: Calcitriol 0.25 MCG CAP PO SCH (08:23)
[2019-04-07] MEDS: Famotidine 20 MG TAB PO SCH (08:23)
[2019-04-07] MEDS: Clopidogrel Bisulfate 75 MG TAB PO SCH (08:23)
[2019-04-07] MEDS: Finasteride 5 MG TAB PO SCH (08:23)
[2019-04-07] MEDS: NIFEdipine XL 90 MG TAB PO SCH (08:24)
[2019-04-07] MEDS: Heparin 5,000 UNITS/ML VIAL SC SCH ×2 (08:24→21:55)
[2019-04-07] MEDS: Tamsulosin HCl 0.4 MG CAP PO SCH (08:24)
[2019-04-07] MEDS: NPH, Human Insulin Isophane 300 UNIT/3 ML VIAL SC SCH ×2 (09:56→21:55)
--- NOTE | 2019-04-07 10:04 | PRG ---
DATE OF SERVICE: 04/06/2019 OBJECTIVE: VITAL SIGNS: Patient is noted with the following vital signs. Afebrile, temperature 97.1; pulse 72; respiratory rate of 18; and blood pressure 123/73. HEENT: Unremarkable. CARDIOVASCULAR: First and second heart sounds were heard. RESPIRATORY SYSTEM: Clear to auscultation. DIGESTIVE: Revealed a benign abdomen. EXTREMITIES: No peripheral edema. SKIN: No new gross rash. LYMPHATICS: No peripheral lymphadenopathy. IMPRESSION: 1. Advanced chronic kidney disease with last creatinine 3.72. 2. Patient seems to be renal supportive measures to continue. 3. Avoid potentially nephrotoxic agents. 4. Renally dose all medications. 5. . 6. Further management to be dependent on the clinical course. Job ID: [id number]
--- NOTE | 2019-04-07 14:24 | PDOC.HOSPP ---
- Subjective Subjective: Seen and examined. FEDERICO on CKD is stable, nephrology on case. Medically stable for lower level of care, pending [facility] bed availability. - Objective Vital Signs & Weight: Vital Signs (12 hours) Temp Pulse Resp BP BP BP Pulse Ox 04/07/19 11:05 98.0 F 75 20 147/67 H 94 L 04/07/19 08:24 79 153/70 H 04/07/19 08:23 153/70 H 04/07/19 08:00 100 04/07/19 07:33 97.9 F 79 20 153/70 H 100 04/07/19 04:08 97.7 F 87 16 159/72 H 97 Weight Admit Weight 223 lb 1.6 oz Weight 198 lb 14.946 oz I&O: 04/06/19 04/07/19 04/08/19 06:59 06:59 06:59 Intake Total 1700 1700 Output Total 2500 1000 Balance -800 700 Result Diagrams: 03/25/19 03:35 04/03/19 07:11 Additional Labs: Accuchecks 04/07/19 04/07/19 04/06/19 10:39 05:21 20:44 POC Glucose 125 H 91 176 H 04/06/19 16:17 POC Glucose 161 H Hospitalist ROS - Review of Systems All other systems reviewed; all pertinent +/- noted in HPI/Subj - Medication Medications: Active Medications Generic Name Dose Route Start Last Admin Trade Name Freq PRN Reason Stop Dose Admin Acetaminophen 650 mg 03/24/19 22:00 04/01/19 11:12 Tylenol PO 650 mg Q4H PRN Administration Headache/Fever/Mild Pain (1-3) Aspirin 81 mg 03/27/19 09:00 04/07/19 08:22 Ecotrin PO 81 mg DAILY HAILEE Administration Atorvastatin Calcium 40 mg 03/26/19 21:00 04/06/19 21:32 Lipitor PO 40 mg HS HAILEE Administration Calcitriol 0.25 mcg 03/29/19 09:00 04/07/19 08:23 Rocaltrol PO 0.25 mcg DAILY HAILEE Administration Carvedilol 12.5 mg 03/27/19 21:00 04/07/19 08:23 Coreg PO 12.5 mg BID HAILEE Administration Clonidine 0.1 mg 03/24/19 22:00 04/03/19 05:54 Catapres PO 0.1 mg Q4H PRN Administration SBP GREATER THAN 160 Clopidogrel Bisulfate 75 mg 03/25/19 09:00 04/07/19 08:23 Plavix PO 75 mg DAILY HAILEE Administration Famotidine 20 mg 03/25/19 09:00 04/07/19 08:23 Pepcid PO 20 mg DAILY HAILEE Administration Ferrous Sulfate 325 mg 03/25/19 08:00 04/07/19 08:22 Feosol PO 325 mg QAM-WM HAILEE Administration Finasteride 5 mg 03/27/19 09:00 04/07/19 08:23 Proscar PO 5 mg DAILY HAILEE Administration Furosemide 20 mg 03/31/19 09:00 04/07/19 08:23 Lasix PO 20 mg DAILY HAILEE Administration Glipizide 5 mg 03/27/19 09:00 04/07/19 08:23 Glucotrol PO 5 mg DAILY HAILEE Administration Heparin Sodium (Porcine) 5,000 units 03/25/19 09:00 04/07/19 08:24 Heparin SC 5,000 units BID HAILEE Administration Hydralazine HCl 10 mg 03/24/19 22:00 03/26/19 06:11 Apresoline SLOW IVP 10 mg Q4H PRN Administration SBP > 180 and HR < 70 Insulin Human Lispro 0 units 03/24/19 22:00 04/06/19 11:23 Humalog SC 4 unit .MODERATE SLIDING SC PRN Administration Moderate Correctional Scale Insulin Human NPH 8 unit 03/26/19 21:00 04/06/19 21:33 Humulin N SC 8 unit QPM HAILEE Administration Insulin Human NPH 12 unit 03/27/19 09:00 04/07/19 09:56 Humulin N SC 12 unit QAM HAILEE Administration Isosorbide Mononitrate 60 mg 03/26/19 09:00 04/07/19 08:24 Imdur PO 60 mg DAILY HAILEE Administration Labetalol HCl 20 mg 03/24/19 22:00 03/26/19 04:40 Normodyne SLOW IVP 20 mg Q4H PRN Administration SBP > 180 and HR >/= 70 Nifedipine 90 mg 03/26/19 09:00 04/07/19 08:24 Procardia Xl PO 90 mg DAILY HAILEE Administration Senna/Docusate Sodium 2 tab 03/24/19 22:00 03/29/19 14:28 Senokot S PO 2 tab BID PRN Administration Constipation Sodium Chloride 10 ml 03/24/19 22:00 03/26/19 09:32 Flush - Normal Saline IVF 10 ml PRN PRN Administration Saline Flush Tamsulosin HCl 0.4 mg 03/27/19 09:00 04/07/19 08:24 Flomax PO 0.4 mg DAILY HAILEE Administration Zolpidem Tartrate 5 mg 03/24/19 22:00 04/06/19 23:50 Ambien PO 5 mg HSPRN PRN Administration Insomnia - Exam General Appearance: NAD, awake alert Eye: anicteric sclera ENT: no oropharyngeal lesions, moist mucosa Neck: supple, symmetric Heart: no murmur, no gallops, no rubs Respiratory: no wheezes, no rales, no ronchi Gastrointestinal: soft, non-tender, non-distended Extremities: no edema Skin: no lesions, no rashes Neurological: normal sensation to touch, no weakness Musculoskeletal: no muscle wasting Psychiatric: normal affect, A&O x 3 Hosp A/P (1) CKD (chronic kidney disease) stage 4, GFR 15-29 ml/min Code(s): N18.4 - CHRONIC KIDNEY DISEASE, STAGE 4 (SEVERE) Status: Chronic (2) Diabetes mellitus type 2 in obese Code(s): E11.69 - TYPE 2 DIABETES MELLITUS WITH OTHER SPECIFIED COMPLICATION; E66.9 - OBESITY, UNSPECIFIED Status: Chronic (3) Diastolic CHF, chronic Code(s): I50.32 - CHRONIC DIASTOLIC (CONGESTIVE) HEART FAILURE Status: Chronic (4) HLD (hyperlipidemia) Code(s): E78.5 - HYPERLIPIDEMIA, UNSPECIFIED Status: Chronic (5) HTN (hypertension) Code(s): I10 - ESSENTIAL (PRIMARY) HYPERTENSION Status: Chronic - Plan Plan: Medically stable for D/c to lower level of care - was recommended for [facility] bed, will plan for D/c when bed available Case management to assist in D/c planning Nephrology consult, recommendations appreciated FEDERICO on CKD is stable at this time Avoid nephrotoxins as able Continue oral DM meds and insulin for glucose control IS - Q1 hour while awake Duo nebs PRN Replace electrolytes as needed GI and DVT PPX
[2019-04-07] MEDS: Atorvastatin Calcium 40 MG TAB PO SCH (21:55)
[2019-04-08] MEDS: cloNIDine 0.1 MG TAB PO PRN (04:29)
[2019-04-08] MEDS: HumaLOG 300 UNITS/3 ML VIAL SC PRN (06:33)
[2019-04-08] MEDS: Clopidogrel Bisulfate 75 MG TAB PO SCH (08:46)
[2019-04-08] MEDS: Furosemide 20 MG TAB PO SCH (08:46)
[2019-04-08] MEDS: Ferrous Sulfate 325 MG TAB PO SCH (08:46)
[2019-04-08] MEDS: NIFEdipine XL 90 MG TAB PO SCH (08:46)
[2019-04-08] MEDS: Tamsulosin HCl 0.4 MG CAP PO SCH (08:46)
[2019-04-08] MEDS: Famotidine 20 MG TAB PO SCH (08:51)
[2019-04-08] MEDS: Aspirin 81 mg Enteric Coated Tablet PO SCH (08:51)
[2019-04-08] MEDS: Carvedilol 6.25 MG TAB PO SCH (08:51)
[2019-04-08] MEDS: Calcitriol 0.25 MCG CAP PO SCH (08:51)
[2019-04-08] MEDS: glipiZIDE 5 MG TAB PO SCH (08:51)
[2019-04-08] MEDS: Finasteride 5 MG TAB PO SCH (08:51)
[2019-04-08] MEDS: Heparin 5,000 UNITS/ML VIAL SC SCH (08:52)
[2019-04-08] MEDS: NPH, Human Insulin Isophane 300 UNIT/3 ML VIAL SC SCH (09:41)
--- NOTE | 2019-04-08 12:13 | PDOC.HOSPP ---
- Subjective Subjective: Seen and examined. No acute changes or medical needs at this time that necessitate inpatient hospitalization, stable for [facility] bed/ SNF level of coverage. Breathing well. Denies pain. Eating, drinking, and toileting without difficulties. - Objective Vital Signs & Weight: Vital Signs (12 hours) Temp Pulse Resp BP BP Pulse Ox 04/08/19 11:43 97.9 F 73 16 112/55 L 98 04/08/19 08:51 158/70 H 04/08/19 08:46 69 158/70 H 04/08/19 08:00 97.9 F 73 18 163/70 H 96 04/08/19 05:20 139/64 04/08/19 04:29 183/81 H 04/08/19 04:00 98.2 F 80 16 183/81 H 97 Weight Admit Weight 223 lb 1.6 oz Weight 198 lb 14.946 oz I&O: 04/07/19 04/08/19 04/09/19 06:59 06:59 06:59 Intake Total 1700 1900 Output Total 1000 1025 Balance 700 875 Result Diagrams: 03/25/19 03:35 04/03/19 07:11 Additional Labs: Accuchecks 04/08/19 04/08/19 04/07/19 11:49 06:00 21:06 POC Glucose 123 H 198 H 177 H 04/07/19 16:19 POC Glucose 83 Hospitalist ROS - Review of Systems All other systems reviewed; all pertinent +/- noted in HPI/Subj - Medication Medications: Active Medications Generic Name Dose Route Start Last Admin Trade Name Freq PRN Reason Stop Dose Admin Acetaminophen 650 mg 03/24/19 22:00 04/01/19 11:12 Tylenol PO 650 mg Q4H PRN Administration Headache/Fever/Mild Pain (1-3) Aspirin 81 mg 03/27/19 09:00 04/08/19 08:51 Ecotrin PO 81 mg DAILY HAILEE Administration Atorvastatin Calcium 40 mg 03/26/19 21:00 04/07/19 21:55 Lipitor PO 40 mg HS HAILEE Administration Calcitriol 0.25 mcg 03/29/19 09:00 04/08/19 08:51 Rocaltrol PO 0.25 mcg DAILY HAILEE Administration Carvedilol 12.5 mg 03/27/19 21:00 04/08/19 08:51 Coreg PO 12.5 mg BID HAILEE Administration Clonidine 0.1 mg 03/24/19 22:00 04/08/19 04:29 Catapres PO 0.1 mg Q4H PRN Administration SBP GREATER THAN 160 Clopidogrel Bisulfate 75 mg 03/25/19 09:00 04/08/19 08:46 Plavix PO 75 mg DAILY HAILEE Administration Famotidine 20 mg 03/25/19 09:00 04/08/19 08:51 Pepcid PO 20 mg DAILY HAILEE Administration Ferrous Sulfate 325 mg 03/25/19 08:00 04/08/19 08:46 Feosol PO 325 mg QAM-WM HAILEE Administration Finasteride 5 mg 03/27/19 09:00 04/08/19 08:51 Proscar PO 5 mg DAILY HAILEE Administration Furosemide 20 mg 03/31/19 09:00 04/08/19 08:46 Lasix PO 20 mg DAILY HAILEE Administration Glipizide 5 mg 03/27/19 09:00 04/08/19 08:51 Glucotrol PO 5 mg DAILY HAILEE Administration Heparin Sodium (Porcine) 5,000 units 03/25/19 09:00 04/08/19 08:52 Heparin SC 5,000 units BID HAILEE Administration Hydralazine HCl 10 mg 03/24/19 22:00 03/26/19 06:11 Apresoline SLOW IVP 10 mg Q4H PRN Administration SBP > 180 and HR < 70 Insulin Human Lispro 0 units 03/24/19 22:00 04/08/19 06:33 Humalog SC 2 unit .MODERATE SLIDING SC PRN Administration Moderate Correctional Scale Insulin Human NPH 8 unit 03/26/19 21:00 04/07/19 21:55 Humulin N SC 8 unit QPM HAILEE Administration Insulin Human NPH 12 unit 03/27/19 09:00 04/08/19 09:41 Humulin N SC 12 unit QAM HAILEE Administration Isosorbide Mononitrate 60 mg 03/26/19 09:00 04/08/19 08:51 Imdur PO 60 mg DAILY HAILEE Administration Labetalol HCl 20 mg 03/24/19 22:00 03/26/19 04:40 Normodyne SLOW IVP 20 mg Q4H PRN Administration SBP > 180 and HR >/= 70 Nifedipine 90 mg 03/26/19 09:00 04/08/19 08:46 Procardia Xl PO 90 mg DAILY HAILEE Administration Senna/Docusate Sodium 2 tab 03/24/19 22:00 03/29/19 14:28 Senokot S PO 2 tab BID PRN Administration Constipation Sodium Chloride 10 ml 03/24/19 22:00 03/26/19 09:32 Flush - Normal Saline IVF 10 ml PRN PRN Administration Saline Flush Tamsulosin HCl 0.4 mg 03/27/19 09:00 04/08/19 08:46 Flomax PO 0.4 mg DAILY HAILEE Administration Zolpidem Tartrate 5 mg 03/24/19 22:00 04/06/19 23:50 Ambien PO 5 mg HSPRN PRN Administration Insomnia - Exam General Appearance: NAD Eye: anicteric sclera ENT: no oropharyngeal lesions, moist mucosa Neck: supple, symmetric, no lymphadenopathy Heart: no murmur, no gallops, no rubs, normal peripheral pulses Respiratory: CTAB, no wheezes, no rales, no ronchi Gastrointestinal: soft, non-tender, non-distended, no guarding, no rigidity Extremities: no edema Skin: no lesions, no rashes Neurological: CN's grossly intact, no weakness, no focal deficits Musculoskeletal: normal strength Psychiatric: normal affect, A&O x 3 Hosp A/P (1) CKD (chronic kidney disease) stage 4, GFR 15-29 ml/min Code(s): N18.4 - CHRONIC KIDNEY DISEASE, STAGE 4 (SEVERE) Status: Chronic (2) Diabetes mellitus type 2 in obese Code(s): E11.69 - TYPE 2 DIABETES MELLITUS WITH OTHER SPECIFIED COMPLICATION; E66.9 - OBESITY, UNSPECIFIED Status: Chronic (3) Diastolic CHF, chronic Code(s): I50.32 - CHRONIC DIASTOLIC (CONGESTIVE) HEART FAILURE Status: Chronic (4) HLD (hyperlipidemia) Code(s): E78.5 - HYPERLIPIDEMIA, UNSPECIFIED Status: Chronic (5) HTN (hypertension) Code(s): I10 - ESSENTIAL (PRIMARY) HYPERTENSION Status: Chronic - Plan Plan: Medically stable for D/c to lower level of care - was recommended for [facility] bed, will plan for D/c when bed available Case management to assist in D/c planning Nephrology consult, recommendations appreciated FEDERICO on CKD is stable at this time Avoid nephrotoxins as able Continue oral DM meds and insulin for glucose control IS - Q1 hour while awake Duo nebs PRN Replace electrolytes as needed GI and DVT PPX
[2019-04-08 15:50] VITALS: BP 134/79; TEMP 97.7
--- NOTE | 2019-04-09 02:49 | DIS ---
DATE OF ADMISSION: 03/24/2019 DATE OF DISCHARGE: 04/08/2019 REASON FOR HOSPITALIZATION: Altered mental status and malignant hypertension. PROCEDURES PERFORMED/TREATMENTS RENDERED: The patient was seen and evaluated by Nephrology, please see full consultation and progress notes for details. The patient was also seen by Urology, please see full consultation and progress notes for details. SIGNIFICANT FINDINGS: The patient was found to have malignant hypertension, acute kidney injury on chronic kidney disease, and altered mental status. CONDITION ON DISCHARGE: Stable. SPECIFIC INSTRUCTIONS FOR THE PATIENT/FAMILY: 1. The patient is recommended to take all medications as directed, to be re-evaluated by admitting physician. 2. The patient is recommended to follow up with admitting physician today to further evaluate the need for inpatient physical therapy and occupational therapy. 3. The patient is recommended to return to acute care hospital immediately if signs or symptoms return, worsen, or any other new symptoms occur. DISCHARGE MEDICATIONS: Please see full discharge medication list for details. 1. Proscar 5 mg one tablet p.o. daily. 2. Clopidogrel 75 mg one tablet p.o. daily. 3. Carvedilol 25 mg one tablet p.o. b.i.d. 4. Atorvastatin 40 mg one tablet p.o. daily. 5. Aspirin 81 mg one tablet p.o. daily. 6. Isosorbide mononitrate 60 mg one tablet p.o. daily. 7. NPH insulin Novolin N 8 units subcutaneous injection at bedtime. 8. Insulin NPH Novolin N 12 units subcutaneous injection q.a.m. 9. Insulin sliding scale coverage with prandial with meals. 10. Glipizide 5 mg one tablet p.o. daily. 11. Clonidine 0.1 mg one tablet p.o. b.i.d. p.r.n. systolic blood pressure greater than 180. 12. Flomax 0.4 mg one tablet p.o. daily. 13. Nitroglycerin 0.4 mg sublingual tablet q.5 minutes p.r.n. chest pain. 14. Nifedipine 90 mg one tablet p.o. daily. 15. Lasix 20 mg one tablet p.o. daily. 16. Ferrous sulfate 325 mg one tablet p.o. daily. HOSPITAL COURSE: Mr. Murphy is a pleasant 58-year-old incarcerated gentleman, who presents to [facility] on 03/24[facility]2019 with altered mental status and malignant hypertension. Initially, there were concerns that the patient might have cerebrovascular accident and Neurology was consulted, please see full consultation and progress notes for details. Neurology recommending that there is no acute neurologic abnormalities and the patient had an MRI of the brain confirming that there was no acute CVA or other acute intracranial process. The patient likely with mood disorder and malingering type activity, explaining his neurologic symptoms on admission. The patient was seen and evaluated by Nephrology for acute kidney injury on chronic kidney disease, please see full consultation from Nephrology for details. The patient also seen by Urology, please see full consultation and progress notes for details. The patient had medications adjusted appropriately by all specialists. The patient was medically recommended safe for discharge on 03/25/2019. Decision was made at that time that the patient would benefit from inpatient services from Physical Therapy and Occupational Therapy. Efforts were made to coordinate with [facility] for an [facility] bed, where he may receive such inpatient services. The patient was finally accepted to [facility] on 04/08/2019. The patient recommended safe for discharge at this time as he is breathing well on room air. He is ambulating without difficulties. The patient's medical regimen has been stabilized for several days and there has been no acute changes. The patient recommended to be evaluated by admitting physician and to determine if there is still necessity for inpatient physical therapy and occupational therapy at this time. The patient is recommended to take all medications, to be re-evaluated by admitting physician today at [facility]. The patient recommended to continue to follow up with Nephrology, Urology, and primary care physician as directed. The patient is recommended to return to acute care hospital immediately if signs or symptoms return, worsen, or any other new symptoms occur. Greater than 35 minutes spent coordinating care and discharge process for this patient. Job ID: [id number]
== END 2019-04-08 16:45 | disposition short-term general hospital (02) | DRG 682 ==
LOC: ERS 14:53 → 2SE 21:53 → SURG A 04-03 00:56
PROVIDERS: ADMIT Internal Medicine; ATTEND Internal Medicine
DX: N17.9 Acute kidney failure, unspecified (principal); G93.41 Metabolic encephalopathy; F68.10 Factitious disorder imposed on self, unspecified; I16.1 Hypertensive emergency; I13.0 Hypertensive heart and chronic kidney disease with heart failure and stage 1 through stage 4 chronic kidney disease, or unspecified chronic kidney disease; I50.32 Chronic diastolic (congestive) heart failure; E87.1 Hypo-osmolality and hyponatremia; R41.4 Neurologic neglect syndrome; N18.4 Chronic kidney disease, stage 4 (severe); N25.81 Secondary hyperparathyroidism of renal origin; I25.10 Atherosclerotic heart disease of native coronary artery without angina pectoris; E78.5 Hyperlipidemia, unspecified; F03.90 Unspecified dementia, unspecified severity, without behavioral disturbance, psychotic disturbance, mood disturbance, and anxiety; J45.909 Unspecified asthma, uncomplicated; N40.0 Benign prostatic hyperplasia without lower urinary tract symptoms; E11.22 Type 2 diabetes mellitus with diabetic chronic kidney disease; E87.6 Hypokalemia; D63.1 Anemia in chronic kidney disease; E66.9 Obesity, unspecified; E11.69 Type 2 diabetes mellitus with other specified complication; Z68.26 Body mass index [BMI] 26.0-26.9, adult; Z88.0 Allergy status to penicillin; Z79.4 Long term (current) use of insulin; Z79.82 Long term (current) use of aspirin; Z79.899 Other long term (current) drug therapy
CPT/HCPCS: 36415; 36416; 51701; 70450; 70551; 71045; 80048; 80053; 80061; 80069; 80306; 81003; 81015; 82140; 82553; 82570; 83735; 83880; 83970; 84100; 84156; 84484; 85025; 85610; 85730; 93005; 96374; 96376; J0360; J1644; J1815; J2060